=== PATIENT | female | born 1945 | race Caucasian/White ===

== ENCOUNTER 2017-01-15 11:55 | Outpatient (CLI) ==
[2017-01-15 12:45] LABS: BASOPHILS # (AUTO) 0.1 K/uL (0-0.2); BASOPHILS % (AUTO) 0.7 % (0.0-3.0); EOSINOPHILS # (AUTO) 0.2 K/ul (0.0-0.7); EOSINOPHILS % (AUTO) 1.8 % (0.0-7.0); HEMATOCRIT 32.2 % (37.0-47.0); HEMOGLOBIN 10.2 g/dl (12.0-16.0); IMMATURE GRANULOCYTE % (AUTO) 4.7 % (0.0-5.0); LYMPHOCYTES # (AUTO) 2.6 K/uL (0.60-3.4); LYMPHOCYTES % (AUTO) 31.4 (10.0-50.0); MEAN CORPUSCULAR HEMOGLOBIN 27.5 pg (27.0-31.0); MEAN CORPUSCULAR HGB CONC 31.7 (31.8-35.4); MEAN CORPUSCULAR VOLUME 86.8 fl (81.0-99.0); MONOCYTES # (AUTO) 0.6 K/uL (0.4-2.0); MONOCYTES % (AUTO) 7.4 (0-10); NEUTROPHILS # (AUTO) 4.4 K/ul (2.0-6.9); PLATELET COUNT 310 10^3/uL (140-440); RED BLOOD COUNT 3.71 10^6/ul (4.20-5.40); WHITE BLOOD COUNT 8.11 K/ul (4.6-10.2)
[2017-01-15 13:21] LABS: ALBUMIN/GLOBULIN RATIO 0.83; ANION GAP 12.3; BILIRUBIN,TOTAL 0.34 mg/dL (0.00-1.20); BUN/CREATININE RATIO 19.17; CALCIUM 9.6 mg/dL (8.2-10.2); CHOL/HDL RATIO 4.1 (4.5-5.5); CREATININE 0.73 mg/dL (0.60-1.30); POTASSIUM 4.3 mmol/L (3.5-5.10); TOTAL PROTEIN 6.6 g/dL (5.8-8.1)
== END 2017-01-15 11:56 | disposition home or self-care (01) ==
LOC: LAB 11:55
PROVIDERS: ATTEND Emergency Medicine
DX: E11.9 Type 2 diabetes mellitus without complications (principal); I10 Essential (primary) hypertension
CPT/HCPCS: 36415; 80053; 80061; 83036; 84443; 85025

== ENCOUNTER 2017-01-16 11:59 | Outpatient (CLI) ==
--- NOTE | 2017-01-16 15:42 | MRI ---
EXAM: MRI brain without and with IV contrast. DATE: 01/16/2017. HISTORY: Malignant neoplasm of the brain, unspecified. TECHNIQUE: Sagittal T1W pre and postcontrast, axial T2W, axial FLAIR, axial T1W pre and postcontras t, axial DWI, coronal T1W postcontrast, and coronal T2W GRE sequences of the brain were obtained usi ng 1.2 the Alise magnet. Many sequences were repeated due to patient motion artifacts. CONTRAST: Omniscan - 17 ml IV. COMPARISON: Study is compared to a CT head report from [facility] dated 2016. FINDINGS: A broad area of T2W/FLAIR hyperintensity involving the anterior half of the left tempora l lobe, left amygdala, left hippocampus, left gyrus rectus, left medial orbital gyrus (centrally), i nferior aspect of the left frontal lobe and left basal ganglia reduction and sulcal size throughout these regions. A contrast enhancing 10.3 x 10.8 x 8.2 mm lesion is detected in the posterior aspect of the left hippocampal tail. A left hippocampal body 5.2 x 3 mm enhancing focus is noted just ant erior to the hippocampal tail lesion. A 8.5 mm circular rim of enhancement is apparent in the far a nterior aspect the left temporal lobe. No other enhancing lesions are identified in the brain. Lateral ventricles and many frontal / parietal lobe sulci are slightly prominent due to involutiona l change. No midline shift, herniation or abnormal extra-axial fluid collection is apparent. No ac kayla infarct or hemorrhage is identified. No abnormal contrast enhancement is identified in the meni nges or dura. Small/moderate confluent rim of T2W/FLAIR hyperintensity without abnormal enhancement is demonstrated in the periventricular white matter abutting each lateral ventricle. Small number of subcentimeter T2W/FLAIR bright, non-enhancing foci are scattered in the schultz radiata and subcor tical white matter bilaterally. Several small areas of T2W/FLAIR hyperintensity are noted in the emery s. The griffin - white matter differentiation is normal. No migration or diverticulation abnormality is identified. No mesial temporal sclerosis is detected. The 7th/8th cranial nerve complexes, cere bellopontine angles, and visible cervical spinal cord are normal. There is no cerebellar tonsillar ectopia. The pituitary gland is small in size, with CSF filling much of the pituitary fossa Corpus callosum is normal in size and configuration. Flow voids are present in the major intracranial art eries and in the dural venous sinuses. No aneurysm, AVM or dural venous sinus thrombosis is apparen t. There is borderline orbital proptosis bilaterally. No other orbit abnormality is identified. T he mastoid air cells are unremarkable. There is no acute sinusitis. No neck mass or lymphadenopath y is detected. No calvarial neoplasm or acute fracture is evident. IMPRESSIONS: 1. Enhancing lesions in the left temporal lobe anteriorly, left hippocampal body and hippocampal ta il. T2W/IR hyperintensity and reduced size of sulci involving much of the left temporal lobe and hi ppocampus - - DDX: Non-enhancing tumor, edema, post XRT changes. These findings are suspicious for multifocal glioblastoma or metastatic disease. Lymphoma, active infection, sequela of infection, de myelinating disease, or vasculitis might look similar; however, patient has a reported history of ma lignant neoplasm. 2. Moderate cerebral / brainstem small vessel disease. 3. No acute infarct, hemorrhage, or hydrocephalus. 4. Mild cerebral atrophy (primarily frontoparietal). 5. Borderline orbital proptosis. Correlate with PE.
== END 2017-01-16 12:00 | disposition home or self-care (01) ==
LOC: RAD 11:59
PROVIDERS: ATTEND Emergency Medicine
DX: C71.9 Malignant neoplasm of brain, unspecified (principal)

== ENCOUNTER 2017-04-12 13:54 | Inpatient (IN) ==
[2017-04-12] MEDS ORDERED: SODIUM CHLORIDE 500 ML IV STA (14:06)
[2017-04-12 14:10] VITALS: BMI 28.5
[2017-04-12 14:16] LABS: BASOPHILS % (AUTO) 0.9 % (0.0-3.0); EOSINOPHILS # (AUTO) 0.2 K/ul (0.0-0.7); EOSINOPHILS % (AUTO) 4.4 % (0.0-7.0); HEMATOCRIT 37.8 % (37.0-47.0); HEMOGLOBIN 12.5 g/dl (12.0-16.0); IMMATURE GRANULOCYTE % (AUTO) 1.7 % (0.0-5.0); LYMPHOCYTES # (AUTO) 1.4 K/uL (0.60-3.4); LYMPHOCYTES % (AUTO) 41.7 (10.0-50.0); MEAN CORPUSCULAR HGB CONC 33.1 (31.8-35.4); MEAN CORPUSCULAR VOLUME 93.8 fl (81.0-99.0); MONOCYTES # (AUTO) 0.5 K/uL (0.4-2.0); NEUTROPHILS # (AUTO) 1.3 K/ul (2.0-6.9); NEUTROPHILS % (AUTO) 37.3; PLATELET COUNT 116 10^3/uL (140-440); RED BLOOD COUNT 4.03 10^6/ul (4.20-5.40); WHITE BLOOD COUNT 3.43 K/ul (4.6-10.2)
[2017-04-12 14:42] LABS: ALBUMIN 3.1 g/dL (3.4-5.0); ALBUMIN/GLOBULIN RATIO 1.07; ANION GAP 18.1; BILIRUBIN,TOTAL 0.66 mg/dL (0.00-1.20); BUN/CREATININE RATIO 13.63; CALCIUM 9.5 mg/dL (8.2-10.2); CREATININE 0.66 mg/dL (0.60-1.30); POTASSIUM 4.1 mmol/L (3.5-5.10)
[2017-04-12 14:48] LABS: ABG PH 7.42 (7.35-7.45)
[2017-04-12 14:49] LABS: ABG BASE EXCESS 3 (-2.0-2.0); ABG HCO3 28 (22.0-26.0); ABG TCO2 29 (22.0-28.0)
--- NOTE | 2017-04-12 15:52 | US ---
EXAM: Bilateral lower extremity venous Doppler History: Bilateral lower extremity pain. Technique: Multiple sonographic images through the bilateral lower extremities were obtained. [place] r duplex Doppler was used to interrogate vascular flow. Findings: The bilateral common femoral, greater saphenous, profunda, superficial femoral, popliteal , peroneal, posterior tibial and anterior tibial veins demonstrate spontaneous flow with normal comp ression and normal augmentation. Impression: No sonographic evidence for deep venous thrombosis.
--- NOTE | 2017-04-12 16:05 | ED.PDOC ---
General ED Provider: Dr. SARANYA MENDOZA Chief Complaint: Weakness Stated Complaint: weakness , cough Time Seen by Physician: 14:14 Mode of Arrival: Wheelchair Information Source: Patient Exam Limitations: No limitations [facility] and Triage Documentation Reviewed and Agree: Yes Miscellaneous Complaint Exam - Complex/Multi-System Complaint/Exam Onset/Duration: brain cancer history has generalized weakness Symptoms Are: Still present Episodes Lasting: Weeks Initial Severity: Mild Current Severity: None Associated Signs and Symptoms: Reports: Cough. Denies: Decreased responsiveness , Confusion, Agitation, Dizziness, Weakness, Syncope, Headache, Short of air, Wheezing, Hemoptysis, Chest pain, Palpitations, Edema, Nausea, Vomiting, Diarrhea, Abdominal pain, Back pain, Dysuria, Hematemesis, Melena, Decreased oral intake, Fever, Diaphoresis, Immunocompromised, Anticoagulation Therapy, Recent medication changes, Indwelling medical receptionist assistant, Prior MRSA, Prior VRE, Recent trauma, Remote trauma Recent Echo/LV Function: No Respiratory Distress: None JVD Present: No Tachypnea Present: No Stridor Present: No Abdominal Findings: Present: Normal findings Glascow Coma Scale (see protocol): 15 Meningeal Signs Positive: No Focal Weakness: Present: None Focal Sensory Loss: Present: None Babinski Sign: Negative Right, Negative Left Skin Findings: Present: Normal findings Review of Systems - Review Of Systems Constitutional: Reports: Malaise, Weakness Eyes: Reports: No symptoms Ears, Nose, Mouth, Throat: Reports: No symptoms Respiratory: Reports: Cough Cardiac: Reports: No symptoms GI: Reports: No symptoms : Reports: No symptoms Musculoskeletal: Reports: No symptoms Skin: Reports: No symptoms Neurological: Reports: No symptoms Endocrine: Reports: No symptoms Hematologic/Lymphatic: Reports: No symptoms All Other Systems: Reviewed and Negative Past Medical History - Past Medical History Previously Healthy: Yes Endocrine: Reports: DM 2, Dyslipidemia Cardiovascular: Reports: None Respiratory: Reports: COPD Hematological: Reports: None Gastrointestinal: Reports: None Genitourinary: Reports: None Neuro/Psych: Reports: None Musculoskeletal: Reports: None Cancer: Reports: None, Other (brain) Last Menstrual Period: na - Surgical History General Surgical History: Reports: None - Family History Family History: Reports: None - Social History Smoking Status: Current some day smoker Hx Substance Use: No Alcohol Screening: None - Immunizations Tetanus Shot up to Date: Yes Physical Exam - Physical Exam Appearance: Ill-appearing Ill-appearing: Moderate Pain Distress: Mild Eyes: MARITZA, EOMI, Conjunctiva clear ENT: Dry mucosa Respiratory: Rhonchi Cardiovascular: RRR, Pulses normal, No rub, No murmur GI/: Soft, Nontender, No masses, Bowel sounds normal, No Organomegaly Musculoskeletal: Normal strength, ROM intact, No edema, No calf tenderness Skin: Warm, Dry, Normal color Neurological: Sensation intact, Motor intact, Reflexes intact, Cranial nerves intact, Alert, Oriented Psychiatric: Affect appropriate, Mood appropriate Interpretation - Radiology Interpretation Radiology Interpretation By: Radiologist Physician Notification - Case Discussed Physician Notified: pmd Time of Notification: 16:05 Admit To: Inpatient Critical Care Note - Critical Care Note Total Time (mins): 0 Course - Course Hematology/Chemistry: 04/12/17 14:14 04/12/17 14:14 Orders, Labs, Meds: Lab Review 04/12/17 04/12/17 14:10 14:14 WBC 3.43 L RBC 4.03 L Hgb 12.5 Hct 37.8 MCV 93.8 MCH 31.0 MCHC 33.1 RDW Coeff of Amanda 15.0 H Plt Count 116 L Immature Gran % (Auto) 1.7 Neut % (Auto) 37.3 Lymph % (Auto) 41.7 [place] % (Auto) 14.0 H Eos % (Auto) 4.4 Baso % (Auto) 0.9 Immature Gran # (Auto) 0.1 Neut # 1.3 L Lymph # 1.4 [place] # 0.5 Eos # 0.2 Baso # 0.0 Puncture Site R rad O2 Saturation 89.0 L ABG pH 7.42 ABG pCO2 43.0 ABG pO2 56.0 L* ABG HCO3 28 H ABG Total CO2 29 H ABG Base Excess 3 H Param Test + FiO2 % 21.0 Sodium 141 Potassium 4.1 Chloride 102 Carbon Dioxide 25 Anion Gap 18.1 BUN 9 Creatinine 0.66 Estimated GFR (MDRD) 89.00 BUN/Creatinine Ratio 13.63 Glucose 85 Calcium 9.5 Total Bilirubin 0.66 AST 15 ALT 9 L Alkaline Phosphatase 77 Total Protein 6.0 Albumin 3.1 L Globulin 2.9 Albumin/Globulin Ratio 1.07 Orders Category Date Time Status ABG DRAW REQUEST Stat CARDIO 04/12/17 14:10 Completed EKG-(ED ONLY) Stat CARDIO 04/12/17 14:04 Completed ED IV/MEDIPORT/POWERPORT .ONCE EMERGENCY 04/12/17 14:04 Active ABG Stat LAB 04/12/17 14:10 Completed CBC W/ AUTO DIFF Stat LAB 04/12/17 14:14 Completed COMPREHENSIVE METABOLIC PANEL Stat LAB 04/12/17 14:14 Completed URINALYSIS C & S IF INDICATED Stat LAB 04/12/17 14:03 Uncollected 0.9 % Sodium Chloride [Saline Flush] MEDS 04/12/17 14:04 Active 1 syr IVF PRN PRN Sodium Chloride 0.9% [Sodium Chloride] 500 ml MEDS 04/12/17 14:[address] CHEST W/O CONTRAST Stat RADS 04/12/17 14:[address] HEAD W/O CONTRAST Stat RADS 04/12/17 14:04 Ordered U/S VENOUS SCAN KENYETTA LEGS Stat RADS 04/12/17 14:06 Completed Medications Generic Name Dose Route Start Last Admin Trade Name Freq PRN Reason Stop Dose Admin Sodium Chloride 1 syr 04/12/17 14:04 Saline Flush IVF PRN PRN To flush IV Discontinued Medications Generic Name Dose Route Start Last Admin Trade Name Freq PRN Reason Stop Dose Admin Sodium Chloride 500 mls @ 500 mls/hr 04/12/17 14:06 04/12/17 14:34 Sodium Chloride IV 04/12/17 15:05 500 mls/hr BOLUS STA Administration Vital Signs: Temp Pulse Resp BP Pulse Ox 04/12/17 14:04 95.6 F L 85 16 122/71 88 L Departure - Departure Time of Disposition: 16:05 (admitt) Disposition: ADMITTED INPATIENT Discharge Problem: Chronic obstructive pulmonary disease Instructions: COPD (Chronic Obstructive Pulmonary Disease) (ED) Condition: Good Pt referred to PMD for follow-up: Yes Additional Instructions: Please call your Family Physician as soon as possible to schedule a follow-up appointment. Allergies/Adverse Reactions: Allergies No Known Allergies Allergy (Verified 04/12/17 14:17) Home Medications: Ambulatory Orders Famotidine 20 mg PO BID 01/15/17 Ondansetron [Zofran Odt] 8 mg PO TID 01/15/17 Pramipexole Di-HCl [Pramipexole Er] 0.25 mg PO BEDTIME 01/15/17 Levothyroxine Sodium [Synthroid] 225 mcg PO DAILY 04/12/17 Disposition Discussed With: Patient
--- NOTE | 2017-04-12 16:26 | CT ---
EXAM: CT of the head without contrast History: Altered mental status, cough, history of brain tumor. Comparison: Brain MRI 01/16/2017 Technique: Multiplanar CT images through the head were obtained without the administration of IV co ntrast Findings: The visualized paranasal sinuses and mastoid air cells are clear in general. Postsurgical changes of the left calvarium. Intracranially the ventricular and cisternal spaces are normal in size, shape and configuration for a patient of this age. No midline shift and no hydrocephalus. No acute intracranial hemorrhage or abnormal extraaxial fluid collections. Periventricular and subcortical white matter hypodensities. No obvious dominant mass identified. Impression: No acute intracranial process. Chronic small vessel ischemic disease.
[2017-04-12] MEDS ORDERED: SODIUM CHLORIDE 1,000 ML IV SCH (16:30)
--- NOTE | 2017-04-12 16:30 | CT ---
Exam: CT of the chest without intravenous contrast. Comparison: None available. Reason for exam: Cough. FINDINGS: Pleural-based nodule in the left upper lobe is seen on axial image number 32 measuring 4. 6 mm. 6 mm x 3 mm nodule in the right middle lobe on axial image number 32. There is a small right-sided pleural effusion and overlying atelectasis or pneumonia. Anterior consolidations are seen in both lung bases. No pneumothorax. The heart is not enlarged. There is atherosclerotic disease of the aorta and distal arterial vasculature including the coronary vessels. The mediastinal lymph nodes are incompletely evaluated without intravenous contrast administration. No suspicious appearing osteoblastic or osteolytic lesions. Degenerative disease is seen within the thoracic spine. The gallbladder has been removed. Impression: 1. Sub centimeter nodules in the left upper and right middle lobes with a small right-sided pleural effusion and overlying atelectasis or pneumonia. Recommend follow up imaging and 3 months to docum ent resolution. 2. Small anterior consolidations in both lung bases. Imaging findings are consistent with atelecta sis or pneumonia. Recommend follow up imaging to document resolution.
[2017-04-12] MEDS: DUONEB NEB SCH ×2 (17:04→23:22)
[2017-04-12] MEDS ORDERED: ROCEPHIN 1 GM in SODIUM CHLORIDE 50 ML IV SCH (19:00)
[2017-04-12] MEDS ORDERED: NON-FORMULARY MEDICATION (Duloxetine Hcl [Duloxetine Hcl] 60 MG) PO SCH (19:00)
[2017-04-12] MEDS: COREG PO SCH (19:15)
[2017-04-12] MEDS ORDERED: ROCEPHIN ONE (19:59)
[2017-04-12] MEDS ORDERED: TEMOZOLOMIDE PO SCH (20:00)
[2017-04-12] MEDS ORDERED: SULFAMETHOXAZOLE PO SCH ×2 (20:00)
[2017-04-12] MEDS ORDERED: TEMOZOLOMIDE 5 MG PO SCH (20:00)
[2017-04-12] MEDS ORDERED: TRIMETHOPRIM PO SCH ×2 (20:00)
[2017-04-12 20:07] LABS: ADD URINE MICROSCOPIC YES; BILIRUBIN,URINE Negative (NEGATIVE); KETONES,URINE Trace (NEGATIVE); LEUKOCYTE ESTERASE ,URINE Negative (NEGATIVE); NITRITE,URINE Positive (NEGATIVE); PH,URINE 5.5 (5-9); PROTEIN,URINE Negative (NEGATIVE); URINE, BLOOD 1+ (NEGATIVE)
[2017-04-12 20:16] LABS: BACTERIA,URINE 4+ (NOT PRESENT)
[2017-04-12] MEDS ORDERED: GLUCOPHAGE PO SCH (21:00)
[2017-04-12] MEDS ORDERED: NON-FORMULARY MEDICATION (Lisinopril [Lisinopril] 20 MG) PO SCH ×22 (21:00)
[2017-04-12] MEDS ORDERED: SOLU-MEDROL 125 MG IVP SCH (21:00)
[2017-04-12] MEDS ORDERED: PRAMIPEXOLE DI HCL 0.25 MG PO SCH (21:00)
[2017-04-12] MEDS ORDERED: OXYCONTIN PO SCH (21:00)
[2017-04-12] MEDS ORDERED: PEPCID PO SCH (21:00)
[2017-04-12] MEDS ORDERED: KEPPRA 500 MG PO SCH (21:00)
[2017-04-12] MEDS ORDERED: BACTRIM DS 800/160 MG ONE (21:09)
[2017-04-12] MEDS ORDERED: GLUCOPHAGE ONE (21:09)
[2017-04-12] MEDS ORDERED: PEPCID ONE (21:09)
[2017-04-12] MEDS: KEPPRA PO SCH (21:36)
[2017-04-12] MEDS: ZESTRIL PO SCH (21:37)
[2017-04-12] MEDS: RISPERDAL PO SCH (21:37)
[2017-04-12] MEDS: OXYCONTIN PO SCH (21:37)
[2017-04-12] MEDS: DRONABINOL 5 MG PO SCH (21:40)
[2017-04-13] MEDS: DUONEB NEB SCH ×4 (04:57→23:17)
[2017-04-13 05:31] LABS: BASOPHILS % (AUTO) 0.9 % (0.0-3.0); EOSINOPHILS % (AUTO) 0.4 % (0.0-7.0); HEMATOCRIT 34.5 % (37.0-47.0); HEMOGLOBIN 11.5 g/dl (12.0-16.0); IMMATURE GRANULOCYTE % (AUTO) 2.7 % (0.0-5.0); LYMPHOCYTES # (AUTO) 0.7 K/uL (0.60-3.4); LYMPHOCYTES % (AUTO) 31.8 (10.0-50.0); MEAN CORPUSCULAR HEMOGLOBIN 30.7 pg (27.0-31.0); MEAN CORPUSCULAR HGB CONC 33.3 (31.8-35.4); MEAN CORPUSCULAR VOLUME 92.2 fl (81.0-99.0); MONOCYTES # (AUTO) 0.1 K/uL (0.4-2.0); MONOCYTES % (AUTO) 3.1 (0-10); NEUTROPHILS # (AUTO) 1.4 K/ul (2.0-6.9); NEUTROPHILS % (AUTO) 61.1; PLATELET COUNT 115 10^3/uL (140-440); RED BLOOD COUNT 3.74 10^6/ul (4.20-5.40); WHITE BLOOD COUNT 2.23 K/ul (4.6-10.2)
[2017-04-13 05:53] LABS: ALBUMIN 2.7 g/dL (3.4-5.0); ALBUMIN/GLOBULIN RATIO 1.08; ANION GAP 19.5; BILIRUBIN,TOTAL 0.39 mg/dL (0.00-1.20); BUN/CREATININE RATIO 17.77; CALCIUM 8.9 mg/dL (8.2-10.2); CREATININE 0.45 mg/dL (0.60-1.30); POTASSIUM 4.5 mmol/L (3.5-5.10); TOTAL PROTEIN 5.2 g/dL (5.8-8.1)
[2017-04-13] MEDS: SYNTHROID PO SCH ×2 (06:10)
[2017-04-13] MEDS: HUMULIN R SUBCUT PRN ×4 (06:11→20:06)
[2017-04-13] MEDS ORDERED: LEVOTHYROXINE SODIUM 225 MCG PO SCH (09:00)
[2017-04-13] MEDS ORDERED: NON-FORMULARY MEDICATION (Atorvastatin Calcium [Atorvastatin Calcium] 40 MG) PO SCH ×22 (09:00)
[2017-04-13] MEDS: SOLU-MEDROL 40 MG IVP SCH ×2 (09:06→20:04)
[2017-04-13] MEDS: ZESTRIL PO SCH ×2 (09:07→20:05)
[2017-04-13] MEDS: DRONABINOL 5 MG PO SCH ×2 (09:07→20:04)
[2017-04-13] MEDS: GLUCOPHAGE PO SCH ×2 (09:08→16:39)
[2017-04-13] MEDS: KEPPRA PO SCH ×2 (09:08→20:05)
[2017-04-13] MEDS: LIPITOR PO SCH (09:08)
[2017-04-13] MEDS: PEPCID PO SCH ×2 (09:09→16:40)
[2017-04-13] MEDS: COREG PO SCH ×2 (09:09→16:40)
[2017-04-13] MEDS: OXYCONTIN PO SCH ×2 (09:09→20:05)
[2017-04-13] MEDS: AMARYL PO SCH (09:09)
[2017-04-13] MEDS: RISPERDAL PO SCH ×2 (09:10→20:05)
[2017-04-13] MEDS: SODIUM CHLORIDE 1,000 ML IV SCH ×2 (20:04→20:17)
[2017-04-13] MEDS: ROCEPHIN 1 GM in SODIUM CHLORIDE 50 ML IV SCH (20:04)
[2017-04-13] MEDS: MIRAPEX PO SCH (20:05)
[2017-04-13] MEDS: CYMBALTA PO SCH (20:05)
[2017-04-14 04:44] LABS: BASOPHILS % (AUTO) 0.5 % (0.0-3.0); HEMOGLOBIN 10.8 g/dl (12.0-16.0); LYMPHOCYTES # (AUTO) 0.6 K/uL (0.60-3.4); LYMPHOCYTES % (AUTO) 14.1 (10.0-50.0); MEAN CORPUSCULAR HEMOGLOBIN 30.9 pg (27.0-31.0); MEAN CORPUSCULAR HGB CONC 33.8 (31.8-35.4); MEAN CORPUSCULAR VOLUME 91.4 fl (81.0-99.0); MONOCYTES # (AUTO) 0.3 K/uL (0.4-2.0); MONOCYTES % (AUTO) 6.4 (0-10); NEUTROPHILS # (AUTO) 3.1 K/ul (2.0-6.9); PLATELET COUNT 133 10^3/uL (140-440); WHITE BLOOD COUNT 3.91 K/ul (4.6-10.2)
[2017-04-14] MEDS: DUONEB NEB SCH ×4 (05:05→23:00)
[2017-04-14 05:09] LABS: ALBUMIN 2.6 g/dL (3.4-5.0); ALBUMIN/GLOBULIN RATIO 1.04; ANION GAP 13.3; BILIRUBIN,TOTAL 0.25 mg/dL (0.00-1.20); BUN/CREATININE RATIO 14.54; CALCIUM 8.8 mg/dL (8.2-10.2); CREATININE 0.55 mg/dL (0.60-1.30); POTASSIUM 4.3 mmol/L (3.5-5.10); TOTAL PROTEIN 5.1 g/dL (5.8-8.1)
[2017-04-14] MEDS: PEPCID PO SCH ×2 (05:42→17:04)
[2017-04-14] MEDS: SYNTHROID PO SCH ×2 (05:42→05:43)
[2017-04-14] MEDS: HUMULIN R SUBCUT PRN ×4 (05:43→20:10)
[2017-04-14] MEDS: ZESTRIL PO SCH ×3 (05:55→20:10)
[2017-04-14] MEDS: DRONABINOL 5 MG PO SCH ×2 (08:12→20:11)
[2017-04-14] MEDS: KEPPRA PO SCH ×2 (08:13→20:10)
[2017-04-14] MEDS: OXYCONTIN PO SCH ×2 (08:13→20:10)
[2017-04-14] MEDS: GLUCOPHAGE PO SCH ×2 (08:14→17:04)
[2017-04-14] MEDS: COREG PO SCH ×2 (08:14→17:04)
[2017-04-14] MEDS: LIPITOR PO SCH (08:15)
[2017-04-14] MEDS: RISPERDAL PO SCH ×2 (08:16→20:10)
[2017-04-14] MEDS: AMARYL PO SCH (08:16)
[2017-04-14] MEDS: SOLU-MEDROL 40 MG IVP SCH ×2 (08:16→20:11)
[2017-04-14] MEDS: SODIUM CHLORIDE 1,000 ML IV SCH ×2 (19:29→21:05)
[2017-04-14] MEDS: ROCEPHIN 1 GM in SODIUM CHLORIDE 50 ML IV SCH (20:09)
[2017-04-14] MEDS: CYMBALTA PO SCH (20:10)
[2017-04-14] MEDS: MIRAPEX PO SCH (20:10)
[2017-04-15] MEDS: DUONEB NEB SCH ×4 (04:51→23:25)
[2017-04-15 04:55] LABS: BASOPHILS % (AUTO) 0.6 % (0.0-3.0); HEMATOCRIT 32.9 % (37.0-47.0); HEMOGLOBIN 11.1 g/dl (12.0-16.0); IMMATURE GRANULOCYTE % (AUTO) 2.6 % (0.0-5.0); LYMPHOCYTES # (AUTO) 0.5 K/uL (0.60-3.4); LYMPHOCYTES % (AUTO) 15.6 (10.0-50.0); MEAN CORPUSCULAR HEMOGLOBIN 30.7 pg (27.0-31.0); MEAN CORPUSCULAR HGB CONC 33.7 (31.8-35.4); MEAN CORPUSCULAR VOLUME 91.1 fl (81.0-99.0); MONOCYTES # (AUTO) 0.3 K/uL (0.4-2.0); MONOCYTES % (AUTO) 7.6 (0-10); NEUTROPHILS # (AUTO) 2.5 K/ul (2.0-6.9); NEUTROPHILS % (AUTO) 73.6; PLATELET COUNT 145 10^3/uL (140-440); RED BLOOD COUNT 3.61 10^6/ul (4.20-5.40)
[2017-04-15 05:23] LABS: ALBUMIN 2.9 g/dL (3.4-5.0); ALBUMIN/GLOBULIN RATIO 1.26; ANION GAP 12.3; BILIRUBIN,TOTAL 0.31 mg/dL (0.00-1.20); BUN/CREATININE RATIO 15.68; CALCIUM 9.3 mg/dL (8.2-10.2); CREATININE 0.51 mg/dL (0.60-1.30); POTASSIUM 4.3 mmol/L (3.5-5.10); TOTAL PROTEIN 5.2 g/dL (5.8-8.1)
[2017-04-15] MEDS: PEPCID PO SCH ×2 (05:41→16:31)
[2017-04-15] MEDS: HUMULIN R SUBCUT PRN ×4 (05:41→21:12)
[2017-04-15] MEDS: SYNTHROID PO SCH ×2 (05:41)
[2017-04-15] MEDS: OXYCONTIN PO SCH ×2 (09:19→21:13)
[2017-04-15] MEDS: DRONABINOL 5 MG PO SCH ×2 (09:19→21:14)
[2017-04-15] MEDS: KEPPRA PO SCH ×2 (09:20→21:14)
[2017-04-15] MEDS: GLUCOPHAGE PO SCH ×2 (09:20→16:31)
[2017-04-15] MEDS: LIPITOR PO SCH (09:20)
[2017-04-15] MEDS: RISPERDAL PO SCH ×2 (09:20→21:13)
[2017-04-15] MEDS: COREG PO SCH ×2 (09:20→16:31)
[2017-04-15] MEDS: AMARYL PO SCH (09:20)
[2017-04-15] MEDS: ZESTRIL PO SCH ×2 (09:20→21:13)
[2017-04-15] MEDS: SOLU-MEDROL 40 MG IVP SCH ×2 (09:21→21:12)
[2017-04-15] MEDS: ROCEPHIN 1 GM in SODIUM CHLORIDE 50 ML IV SCH (21:11)
[2017-04-15] MEDS: MIRAPEX PO SCH (21:13)
[2017-04-15] MEDS: CYMBALTA PO SCH (21:14)
[2017-04-16 05:11] LABS: BASOPHILS % (AUTO) 0.6 % (0.0-3.0); HEMATOCRIT 31.8 % (37.0-47.0); HEMOGLOBIN 10.9 g/dl (12.0-16.0); IMMATURE GRANULOCYTE % (AUTO) 4.1 % (0.0-5.0); LYMPHOCYTES # (AUTO) 0.4 K/uL (0.60-3.4); LYMPHOCYTES % (AUTO) 11.4 (10.0-50.0); MEAN CORPUSCULAR HGB CONC 34.3 (31.8-35.4); MEAN CORPUSCULAR VOLUME 90.3 fl (81.0-99.0); MONOCYTES # (AUTO) 0.2 K/uL (0.4-2.0); MONOCYTES % (AUTO) 7.6 (0-10); NEUTROPHILS # (AUTO) 2.4 K/ul (2.0-6.9); NEUTROPHILS % (AUTO) 76.3; PLATELET COUNT 152 10^3/uL (140-440); RED BLOOD COUNT 3.52 10^6/ul (4.20-5.40); WHITE BLOOD COUNT 3.17 K/ul (4.6-10.2)
[2017-04-16] MEDS: DUONEB NEB SCH ×4 (05:12→23:25)
[2017-04-16 05:35] LABS: ALBUMIN 2.7 g/dL (3.4-5.0); ALBUMIN/GLOBULIN RATIO 1.29; BILIRUBIN,TOTAL 0.3 mg/dL (0.00-1.20); BUN/CREATININE RATIO 16.98; CALCIUM 8.9 mg/dL (8.2-10.2); CREATININE 0.53 mg/dL (0.60-1.30); TOTAL PROTEIN 4.8 g/dL (5.8-8.1)
[2017-04-16] MEDS: HUMULIN R SUBCUT PRN ×4 (05:57→20:53)
[2017-04-16] MEDS: SODIUM CHLORIDE 1,000 ML IV SCH (05:57)
[2017-04-16] MEDS: SYNTHROID PO SCH ×2 (05:58)
[2017-04-16] MEDS: PEPCID PO SCH ×2 (05:58→17:32)
[2017-04-16] MEDS: SOLU-MEDROL 40 MG IVP SCH ×2 (09:14→20:52)
[2017-04-16] MEDS: RISPERDAL PO SCH ×2 (09:40→20:54)
[2017-04-16] MEDS: LIPITOR PO SCH (09:40)
[2017-04-16] MEDS: COREG PO SCH ×2 (09:40→17:32)
[2017-04-16] MEDS: ZESTRIL PO SCH ×2 (09:40→20:53)
[2017-04-16] MEDS: OXYCONTIN PO SCH ×2 (09:40→20:52)
[2017-04-16] MEDS: DRONABINOL 5 MG PO SCH ×2 (09:41→20:54)
[2017-04-16] MEDS: KEPPRA PO SCH ×2 (09:41→20:54)
[2017-04-16] MEDS: GLUCOPHAGE PO SCH ×2 (09:42→17:33)
[2017-04-16] MEDS: AMARYL PO SCH (09:42)
--- NOTE | 2017-04-16 10:47 | HP ---
DATE OF SERVICE: 04/12/17 CHIEF COMPLAINT: Shortness of breath, coughing, weakness and tiredness. HISTORY OF PRESENT ILLNESS: This is a 71-year-old female who recently came to my practice. She has been diagnosed with brain cancer and has recurrence of brain cancer and is presently on chemotherapy and radiation in [place] with oncologist. The patient has been weak, tired, cough and congestion. The patient's daughter brought the patient to the emergency room for the evaluation. The patient was hypoxic with pH 7.42, pc02 43.0, p02 56. BUN and creatinine were normal. UA was positive for nitrites and leukocyte esterase negative. CT of the chest was done which showed COPD. CT head showed brain mass which was consistent with brain cancer. At that time, in view of respiratory failure, urinary tract infection, bronchitis, the patient is admitted to the hospital for IV fluids and treatment. REVIEW OF SYSTEMS: CONSTITUTIONAL: Weakness, tiredness. No fever, no chills. HEENT: Normal. ENDOCRINE: No weight gain; no weight loss. CVS: No chest pain. No PND, no orthopnea. Shortness of breath. No PND, no orthopnea. RESPIRATORY: Shortness of breath, cough and congestion. No hemoptysis. GI: No nausea, no vomiting. No abdominal pain. No melena. : No hematuria. No polyuria. MUSCULOSKELETAL: No joint swelling. PSYCHIATRIC: Not anxious. No depression. No suicidal thoughts. No homicidal thoughts. SKIN: Intact, no open lesions. PAST MEDICAL HISTORY: 1. CAD 2. Dyslipidemia 3. Hypertension 4. Seizure disorder on precautionary medication 5. COPD, oxygen dependent 6. Osteoarthritis 7. DJD spine, multiple pain medications 8. Hypothyroidism 9. Depression/anxiety 10. Nicotine use PAST SURGICAL HISTORY: 1. Cholecystectomy 2. Craniotomy for brain tumor PERSONAL HISTORY: Lives at home, , lives with daughter, still smoking. FAMILY HISTORY: Significant for diabetes. MEDICATIONS: 1. Famotidine 2. Zofran 3. Pramipexole 4. Glimepiride 5. Lisinopril 6. Metformin 7. Risperidone 8. Atorvastatin 9. Coreg 10. Duloxetine 11. Keppra 12. Dronabinol 13. Oxycodone 14. Levothyroxine 15. Temozolomide 16. Bactrim ALLERGIES: NKDA PHYSICAL EXAMINATION: V/S: BP 122/71, temperature 97.5, respiratory rate 16, heart rate 85, saturation 88 on 2L GENERAL APPEARANCE: Sick-looking lady lying in bed. HEENT: Atraumatic, normocephalic. No scleral icterus. Pallor positive. Mucosa dry. NECK: Supple. No JVD, no bruit. No lymphadenopathy. No thyromegaly. HEART: S1, S2 normal. No murmur. No cyanosis or clubbing. No ascites. LUNGS: Decreased with basilar crackles bilaterally. No rales or rhonchi. ABDOMEN: Soft, nontender. Bowel sounds are active. No CVA tenderness. No rigidity or guarding. EXTREMITIES: 1+ edema. No cyanosis or clubbing. MUSCULOSKELETAL: Normal joints, no swelling. SKIN: Intact and dry. LYMPHATIC: No lymph nodes palpable. LABS: White count 3.43, hemoglobin 12.5, hematocrit 37.8, platelet count 116. ABG pH 7.42, pc02 43, p02 56, sodium 141, potassium 4.1, chloride 102, bicarb 25, BUN 9 , creatinine 0.66. ASSESSMENT: 1. COPD EXACERBATION SECONDARY TO BRONCHITIS. 2. BRAIN TUMOR 3. FAILURE TO THRIVE 4. RECURRENCE OF BRAIN TUMOR ON CHEMOTHERAPY 5. HYPOXEMIA 6. UTI 7. CAD 8. HYPERTENSION 9. DYSLIPIDEMIA 10. CHRONIC PAIN SYNDROME PLAN: 1. Admit the patient to regular floor 2. CBC, CMP today and daily 3. Cardiac enzymes and troponin 4. Continue home medications 5. IV fluids at 40 mL/hr 6. Solu-Medrol 40 mg q.12hr 7. Accu-Cheks with coverage 8. Duonebs 9. Rocephin 1 gm daily 10. Daily I & O's TIME SPENT: MORE THAN 70 minutes MTDD
--- NOTE | 2017-04-16 11:11 | PN ---
DATE OF SERVICE: 04/13/17 SUBJECTIVE: The patient is admitted with COPD exacerbation, UTI, still feeling weak and tired with some coughing. REVIEW OF SYSTEMS: CONSTITUTIONAL: Weakness/tiredness. No fever, no chills. HEENT: Normal. ENDOCRINE: No weight gain, no weight loss. CVS: No angina symptoms. No CHF symptoms. No palpitations. No atypical chest pain for CAD. No shortness of breath. No PND, no orthopnea. RESPIRATORY: Cough, no hemoptysis. GI: No nausea, no vomiting. No abdominal pain. : No hematuria. No polyuria. MUSCULOSKELETAL:. No joint swelling. PSYCHIATRIC: Not anxious. No depression. No suicidal thoughts. No homicidal thoughts. SKIN: Intact. No rash. PHYSICAL EXAMINATION: V/S: BP 113/64, respiratory rate 20, heart rate 93, temperature 98.5. Saturation 93% on 2L. HEENT: Normocephalic, atraumatic. Mucosa dry. Pallor positive. No icterus. NECK: Supple. No JVD, no carotid bruit. No lymphadenopathy. LUNGS: Decreased basilar crackles. Clear to auscultation. No rales or rhonchi. HEART: S1, S2 normal. No S3. No murmur, gallop or regurgitation. ABDOMEN: Soft, nontender. Bowel sounds active. No rigidity. No rebound or guarding. No CVA tenderness. EXTREMITIES: 1+ edema but wrinkles are seen on lower extremity today. No clubbing, cyanosis or pedal edema. MUSCULOSKELETAL: No joint swelling. NEUROLOGIC: [Awake, alert, oriented times three. No focal deficit. LYMPHATIC: No lymph nodes palpable. SKIN: Intact and dry. LABS: White count 2.23, hemoglobin 11.5, hematocrit 34.5, platelet count 115. Sodium 141, potassium 4.5, chloride 103, bicarb 23, BUN 8, creatinine 0.45, glucose 186. ASSESSMENT: 1. COPD EXACERBATION 2. ACUTE HYPOXEMIC RESPIRATORY FAILURE 3. URINARY TRACT INFECTION, GRAM NEGATIVE RODS 4. BRAIN CANCER WITH RECURRENCE CURRENTLY ON CHEMOTHERAPY 5. PROPHYLACTIC SEIZURE TREATMENT 6. COPD, OXYGEN DEPENDENT 7. HYPERTENSION 8. DYSLIPIDEMIA 9. OSTEOARTHRITIS 10. DJD SPINE 11. DEPRESSION 12. ANEMIA PLAN: 1. Continue Rocephin 2. Solu-Medrol 3. IV fluids 4. Daily I & O's 5. No anticoagulation secondary to brain tumor TIME SPENT: More than 30 minutes MTDD
--- NOTE | 2017-04-16 13:14 | RS.PTINEVL ---
Subjective - Patient information Date of Evaluation: 04/16/17 Date of Arrival on Unit: 04/12/17 Usual Living Arrangement: With Others Living Arrangement Comments: Lives at home with daughter and family. Medical History: COPD, Diabetes Medical History Comments:: spinal stenosis, Anxiety, Depression Surgical History: Cholecystectomy Surgical History Comments:: Crainiotomy November 2016 Subjective Information/ Patient Comments:: Patient reports slight dizziness when transferring to stand. Her daughter reports she was able to ambulate with a walker mostly independent, and transferred independently prior to this admission. States she needed some help with ADLs. - Level of function Current Equipment Used at Home: Hospital bed, BSC, wheelchair, walker home oxygen Interventions - Objective Patient Orientation: Person, Place Current Interventions: IV's, Oxygen Observation: O2 Sat 93% prior to ambulation. After ambulating 30 feet, O2 Sat 80 -90%. Range of Motion - ROM Right Upper Extremity AROM: WFL's Left Upper Extremity AROM: WFL's Right Lower Extremity AROM: WFL's Left Lower Extremity AROM: WFL's Muscle Strength - Muscle Strength Comments:: Right LE strength generally 4/5. Left LE at 4 to 4+/5. Balance - Sitting Balance and Reactions Static Sitting Balance: Good Dynamic Sitting Balance: Good (-) - Standing Balance and Reactions Static Standing Balance: Good (-) Dynamic Standing Balance: Fair (+) Functional Mobility - Bed Mobility Supine to Sit: CGA, 1 person assist - Transfers Sit to Stand: CGA, 2 person assist, Verbal Cues, Tactile Cues Stand to Sit: CGA, 2 person assist, Verbal Cues, Tactile Cues Stand Pivot Transfers: CGA, 2 person assist, Verbal Cues, Tactile Cues Comments:: Patient needs verbal cues to push with UE's from seated surface. Also needs verbal cues to reach back for armrest of chair prior to sitting down. - Safety Awareness Safety Awareness: Poor Ambulation - Ambulation Weight Bearing Status: FWB Assistive Device Used: Rolling Walker Distance: 60 feet Assistance needed with Ambulation: Min Assist, 2 person assist, Verbal Cues, Tactile Cues Quality of Ambulation: Patient demonstrates decreased stance time on right LE. Exhibits decreased heelstrike and lacks full knee extension at mid stance on right LE. Gait Deviations: Narrow Based gait, Short stride, Lacks step continuity Factors Affecting Ambulation: Decreased Balance, Weakness, Decreased Safety, Cognitive Status, Limited Endurance Treatment time - Time with patient Total treatment time: 21 (mins) Assessment - Assessment Problem List:: Decreased level of function, Requires training/education, Decreased safety/Risk of falls, Weakness Rehab Potential: Good Further Therapy Indicated?: Yes Comments: Patient presents to be candidate for Swing Bed. She presents to be at a high risk for falls with her mobility due to poor safety awareness. Short Term Goals GOAL #1: Sit to stand with consistent use of UE's from seated surface. Goal to be met by: 04/18/17 GOAL #2: Stand to sit w/ consistently reaching back for chair/bed. Goal to be met by: 04/18/17 GOAL #3: Pt amb. with RW 100 feet with CGA of one and good GURVINDER. Goal to be met by: 04/19/17 [facility] Goals GOAL #1: All transfers independent with good safety. Goal to be met by: 04/23/17 GOAL #2: All amb. with RW and SBA, household distances with good safety. Goal to be met by: 04/23/17 Plan Plan of Care: Therapeutic EX, Therapeutic Activity, Self-Care/Home Management Frequency of Treatment: 1-2 X day, as tolerated Duration of Treatment: 1 Week Anticipated Discharge Destination: Home (with family)
[2017-04-16] MEDS: ROCEPHIN 1 GM in SODIUM CHLORIDE 50 ML IV SCH (20:52)
[2017-04-16] MEDS: MIRAPEX PO SCH (20:53)
[2017-04-16] MEDS: CYMBALTA PO SCH (20:54)
[2017-04-17] MEDS: DUONEB NEB SCH ×2 (05:00→11:08)
[2017-04-17 05:10] LABS: HEMATOCRIT 32.2 % (37.0-47.0); MEAN CORPUSCULAR HEMOGLOBIN 30.9 pg (27.0-31.0); MEAN CORPUSCULAR HGB CONC 34.2 (31.8-35.4); MEAN CORPUSCULAR VOLUME 90.4 fl (81.0-99.0); PLATELET COUNT 166 10^3/uL (140-440); RED BLOOD COUNT 3.56 10^6/ul (4.20-5.40); WHITE BLOOD COUNT 3.63 K/ul (4.6-10.2)
[2017-04-17 05:20] LABS: ANISOCYTOSIS NOT PRESENT (NOT PRESENT)
[2017-04-17 05:27] LABS: ALBUMIN 2.6 g/dL (3.4-5.0); ALBUMIN/GLOBULIN RATIO 1.04; BILIRUBIN,TOTAL 0.28 mg/dL (0.00-1.20); BUN/CREATININE RATIO 16.36; CALCIUM 8.7 mg/dL (8.2-10.2); CREATININE 0.55 mg/dL (0.60-1.30); TOTAL PROTEIN 5.1 g/dL (5.8-8.1)
[2017-04-17] MEDS: SYNTHROID PO SCH ×2 (06:07)
[2017-04-17] MEDS: PEPCID PO SCH (06:07)
[2017-04-17] MEDS: HUMULIN R SUBCUT PRN (06:07)
[2017-04-17] MEDS: SODIUM CHLORIDE 1,000 ML IV SCH (06:21)
[2017-04-17] MEDS ORDERED: JANUVIA PO SCH (09:00)
[2017-04-17] MEDS: OXYCONTIN PO SCH (09:13)
[2017-04-17] MEDS: ZESTRIL PO SCH (09:13)
[2017-04-17] MEDS: GLUCOPHAGE PO SCH (09:13)
[2017-04-17] MEDS: KEPPRA PO SCH (09:13)
[2017-04-17] MEDS: COREG PO SCH (09:13)
[2017-04-17] MEDS: RISPERDAL PO SCH (09:13)
[2017-04-17] MEDS: LIPITOR PO SCH (09:14)
[2017-04-17] MEDS: SOLU-MEDROL 40 MG IVP SCH (09:14)
[2017-04-17 09:21] VITALS: BP 125/67; TEMP 97.4
[2017-04-17] MEDS: DRONABINOL 5 MG PO SCH (09:25)
--- NOTE | 2017-04-17 14:04 | PN ---
DATE OF SERVICE: 04/16/17 SUBJECTIVE: The patient was admitted with the COPD exacerbation, bronchitis and failure to thrive. The patient has a history of brain tumor with recurrence. The patient is going through the Chemo therapy. As of now that patient is feeling some better, no coughing and still having difficulty to ambulant and get around. REVIEW OF SYSTEMS: CONSTITUTIONAL: No fever, no chills. HEENT: Normal. ENDOCRINE: No weight gain, no weight loss. CVS: No angina symptoms. No CHF symptoms. No palpitations. No atypical chest pain for CAD. No shortness of breath. No PND, no orthopnea. RESPIRATORY: No cough, no hemoptysis. GI: No nausea, no vomiting. No abdominal pain. : No hematuria. No polyuria. MUSCULOSKELETAL:. No joint swelling. PSYCHIATRIC: Not anxious. No depression. No suicidal thoughts. No homicidal thoughts. SKIN: Intact. No rash. PHYSICAL EXAMINATION: V/S: Blood pressure 141/71, respiratory rate 18, heart rate 62, temperature 97.6 with saturation 91 on 2 liters. HEENT: Normocephalic, atraumatic. Mucosa dry. Pallor positive. No icterus. NECK: Supple. No JVD, no carotid bruit. No lymphadenopathy. LUNGS: Decreased and basilar crackles. No rales or rhonchi. HEART: S1, S2 normal. No S3. No murmur, gallop or regurgitation. ABDOMEN: Soft, nontender. Bowel sounds active. No rigidity. No rebound or guarding. No CVA tenderness. EXTREMITIES: No clubbing, cyanosis. 1+ edema on both lower extremities. . MUSCULOSKELETAL: No joint swelling. NEUROLOGIC: Awake, alert, oriented times three. No focal deficit. LYMPHATIC: No lymph nodes palpable. SKIN: Intact. LABS: WBC 3.17, hgb 10.9, hct 31.8, plt count 152, sodium 141, potassium 4.0, chloride 102, bibcarb 28, BUN 9, creatinine 0.53. ASSESSMENT: 1. COPD exacerbation secondary to the bronchitis 2. Brain cancer with recurrence 3. Hypoxemia with respiratory failure 4. Hypertension 5. Dyslipidemia 6. Anemia 7. Osteoarthritis 8. DJD spine 9. Diabetes PLAN: 1. Evaluate the patient for TCU placement secondary to the inability to ambulate and bronchitis and needing help. 2. Fall precautions 3. Continue the DUO NEBS 4. Rocephin 5. Solu-Medrol 40mg twice a day Follow the patient in daily rounds. TIME SPENT: More than 35 minutes MTDD
--- NOTE | 2017-04-17 15:31 | PN ---
DATE OF SERVICE: 04/15/17 SUBJECTIVE: The patient was admitted with COPD exacerbation and hypoxemic respiratory failure. The patient has brain tumor with recurrence and chemotherapy. Still feeling weak and tired and leg edema is worse today. The patient's daughter is in the room and has a lot questions and all of them are answered. REVIEW OF SYSTEMS: CONSTITUTIONAL: No fever, no chills. HEENT: Normal. ENDOCRINE: No weight gain, no weight loss. CVS: No angina symptoms. No CHF symptoms. No palpitations. No atypical chest pain for CAD. No shortness of breath. No PND, no orthopnea. RESPIRATORY: No cough, no hemoptysis. GI: No nausea, no vomiting. No abdominal pain. : No hematuria. No polyuria. MUSCULOSKELETAL:. No joint swelling. PSYCHIATRIC: Not anxious. No depression. No suicidal thoughts. No homicidal thoughts. SKIN: Intact. No rash. PHYSICAL EXAMINATION: V/S: Blood pressure 155/71, respiratory rate 20, heart rate 72, temperature 98.0. HEENT: Normocephalic, atraumatic. Mucosa dry. Pallor positive. No icterus. NECK: Supple. No JVD, no carotid bruit. No lymphadenopathy. LUNGS: Decreased and basilar crackles. No rales or rhonchi. HEART: S1, S2 normal. No S3. No murmur, gallop or regurgitation. ABDOMEN: Soft, nontender. Bowel sounds active. No rigidity. No rebound or guarding. No CVA tenderness. EXTREMITIES: No clubbing, cyanosis. 1+ edema. MUSCULOSKELETAL: No joint swelling. NEUROLOGIC: Awake, alert, oriented times three. No focal deficit. LYMPHATIC: No lymph nodes palpable. SKIN: Intact. LABS: WBC 3.40, hgb 11.1, hct 32.9, plt count 145, Sodium 140, potassium 4.3, chloride 103, bicarb 29, BUN 8, creainine 0.51. ASSESSMENT: 1. COPD exacerbation secondary to the bronchitis 2. Hypoxemic respiratory failure 3. Chronic COPD with oxygen dependent 4. History of brain tumor with recurrence and chemo therapy 5. Failure to thrive 6. Ataxia 7. DJD spine 8. Chronic pain syndrome PLAN: 1. Continue Rocephin 2. DUO NEBS 3. Accu-checks with coverage 4. Solu-Medrol 40mg Q 12 hour 5. No anticoagulation secondary to the brain tumor 6. Daily I&O's 7. Possible evaluation for the TCU care as patient been having trouble ambulating and needing more help at home as per the daughter. TIME SPENT: More than 30 minutes MTDD
--- NOTE | 2017-04-19 15:33 | PN ---
DATE OF SERVICE: 04/14/17 SUBJECTIVE: The patient was admitted with the COPD exacerbation, hypoxemic respiratory failure and bronchitis. The patient is up and about still shortness of breath with minimal exertion. REVIEW OF SYSTEMS: CONSTITUTIONAL: No fever, no chills. HEENT: Normal. ENDOCRINE: No weight gain, no weight loss. CVS: No angina symptoms. No CHF symptoms. No palpitations. No atypical chest pain for CAD. No shortness of breath. No PND, no orthopnea. RESPIRATORY: No cough, no hemoptysis. GI: No nausea, no vomiting. No abdominal pain. : No hematuria. No polyuria. MUSCULOSKELETAL:. No joint swelling. PSYCHIATRIC: Not anxious. No depression. No suicidal thoughts. No homicidal thoughts. SKIN: Intact. No rash. PHYSICAL EXAMINATION: V/S: Blood pressure 136/70, respiratory rate 20, heart rate 80, temperature 97.7 and saturation is 90% on 2 liters. HEENT: Normocephalic, atraumatic. Mucosa dry. NECK: Supple. No JVD, no carotid bruit. No lymphadenopathy. LUNGS: Decreased and basilar crackles left more than the right. No rales or rhonchi. HEART: S1, S2 normal. No S3. No murmur, gallop or regurgitation. ABDOMEN: Soft, nontender. Bowel sounds active. No rigidity. No rebound or guarding. No CVA tenderness. EXTREMITIES: No clubbing, cyanosis. 1+ edema with lots of wrinkles. MUSCULOSKELETAL: No joint swelling. Grossly Intact. NEUROLOGIC: Awake, alert, oriented times three. No focal deficit. LYMPHATIC: No lymph nodes palpable. SKIN: Intact. LABS: WBC 3.91, hgb 10.8, hct 32.0, plt count 133, sodium 142, potassium 4.3, chloride 104, bicarb 29, BUN 8, creatinine 0.5, glucose 213. ASSESSMENT: 1. COPD exacerbation secondary to bronchitis 2. History of recurrence of the brain cancer, on chemotherapy 3. COPD oxygen dependence 4. Coronary artery disease 5. Congestive heart failure 6. Hypertension 7. Dyslipidemia 8. Chronic pain syndrome PLAN: 1. Continue the Rocephin 2. DUO NEBS 3. Solu-Medrol 40mg Q 12 hours 4. IV fluids at 40ml per hours 5. No anticoagulation secondary to the brain mass. TIME SPENT: More than 30 minutes MTDD
== END 2017-04-17 11:50 | disposition swing bed (61) | DRG 202 ==
LOC: ED 13:54 → MEDSURG B 16:14 → MEDSURG A 16:46
PROVIDERS: ADMIT Emergency Medicine; ATTEND Emergency Medicine
DX: J20.9 Acute bronchitis, unspecified (principal); J96.01 Acute respiratory failure with hypoxia; J44.0 Chronic obstructive pulmonary disease with (acute) lower respiratory infection; J44.1 Chronic obstructive pulmonary disease with (acute) exacerbation; N39.0 Urinary tract infection, site not specified; B96.89 Other specified bacterial agents as the cause of diseases classified elsewhere; I10 Essential (primary) hypertension; D64.9 Anemia, unspecified; I50.9 Heart failure, unspecified; G40.909 Epilepsy, unspecified, not intractable, without status epilepticus; R62.7 Adult failure to thrive; R27.0 Ataxia, unspecified; D49.6 Neoplasm of unspecified behavior of brain; I25.10 Atherosclerotic heart disease of native coronary artery without angina pectoris; E78.5 Hyperlipidemia, unspecified; M19.90 Unspecified osteoarthritis, unspecified site; M47.9 Spondylosis, unspecified; E03.9 Hypothyroidism, unspecified; F32.9 Major depressive disorder, single episode, unspecified; G89.4 Chronic pain syndrome; F17.200 Nicotine dependence, unspecified, uncomplicated; R05 Cough; R53.1 Weakness; Z99.81 Dependence on supplemental oxygen; Z98.890 Other specified postprocedural states; Z79.899 Other long term (current) drug therapy
CPT/HCPCS: 36415; 80053; 81001; 82550; 82803; 82962; 85007; 85025; 87086; 87186; 93005; 93010; 94640; 96360; 99223; 99233; 99234; 99284

== ENCOUNTER 2017-04-17 12:07 | Inpatient (IN) ==
[2017-04-17] MEDS ORDERED: NON-FORMULARY MEDICATION (Duloxetine Hcl [Duloxetine Hcl] 60 MG) PO SCH (12:30)
--- NOTE | 2017-04-17 15:47 | RS.PTINEVL ---
Subjective - Patient information Date of Evaluation: 04/17/17 Date of Arrival on Unit: 04/17/17 Admitted From:: In-House Transfer Usual Living Arrangement: With Others Living Arrangement Comments: Lives at home with daughter and family. Home Environment: House, Stairs (few) (one to get into home) Medical History: COPD, Diabetes Medical History Comments:: spinal stenosis, Depression, Anxiety Subjective Information/ Patient Comments:: Patient states she was ambulatory with a rolling walker prior to her acute hospital admission. She and her daughter state she could transfer independently. Daughter states she needed help with some ADL's. Patient states she has not driven in over a year. - Level of function Current Level of Function: Partially Dependent Current Equipment Used at Home: hospital bed, BSC, WC, walker, home oxygen Interventions - Objective Patient Orientation: Person, Place Current Interventions: IV's, Telemetry Range of Motion - ROM Right Lower Extremity AROM: WFL's Left Lower Extremity AROM: WFL's Muscle Strength - Muscle Strength Comments:: right LE weaker, muscle strength generally 4- to 4/5 of right hip and knee. Left LE generally 4+/5. Balance - Sitting Balance and Reactions Static Sitting Balance: Good Dynamic Sitting Balance: Good (-) - Standing Balance and Reactions Static Standing Balance: Good (-) Dynamic Standing Balance: Fair (+) Functional Mobility - Bed Mobility Supine to Sit: CGA, 1 person assist, Verbal Cues, Tactile Cues - Transfers Sit to Stand: CGA, 2 person assist, Verbal Cues, Tactile Cues Stand to Sit: CGA, 2 person assist, Verbal Cues, Tactile Cues Stand Pivot Transfers: CGA, 2 person assist, Verbal Cues, Tactile Cues Comments:: Needs reminding to push from chair/bed for sit to stand transfer and to reach back for seat before sitting down. Also needs cues to keep walker with her as she turns around to sit on bed or chair. - Safety Awareness Safety Awareness: Poor Ambulation - Ambulation Weight Bearing Status: FWB Assistive Device Used: Rolling Walker Distance: 80 feet Assistance needed with Ambulation: CGA, Min Assist, 2 person assist, Verbal Cues , Tactile Cues Gait Deviations: Narrow Based gait, Short stride, Lacks step continuity Ambulation Comments: Decreased stance on right LE. Decreased right hip and knee flexion and lacks full knee extension at mid stance. Also demonstrates decreased heelstrike and toe off on right LE. Factors Affecting Ambulation: Decreased Balance, Weakness, Decreased Coordination, Decreased Safety, Cognitive Status Treatment time - Time with patient Total treatment time: 18 (mins) Assessment - Assessment Problem List:: Decreased level of function, Requires training/education, Decreased safety/Risk of falls, Weakness Rehab Potential: Good Further Therapy Indicated?: Yes Short Term Goals GOAL #1: Sit to stand with consistent use of UE's from seated surface. Goal to be met by: 04/19/17 GOAL #2: Stand to sit w/ consistently reaching back for chair/bed. Goal to be met by: 04/19/17 GOAL #3: Pt amb. with RW 100 feet with CGA of one and good GURVINDER. Goal to be met by: 04/19/17 Transportation Aide Goals GOAL #1: All transfers independent with good safety. Goal to be met by: 04/23/17 GOAL #2: All amb. with RW and SBA, household distances with good safety. Goal to be met by: 04/23/17 Plan Plan of Care: Therapeutic EX, Neuromuscular Re-Educ, Therapeutic Activity, Self- Care/Home Management Frequency of Treatment: 1-2 X day, as tolerated Duration of Treatment: 5-7 days Anticipated Discharge Destination: Home (with daughter/son)
--- NOTE | 2017-04-17 16:18 | RS.OTINEVL ---
Subjective - Patient information Date of Evaluation: 04/17/17 Date of Arrival on Unit: 04/17/17 Admitted From:: In-House Transfer Usual Living Arrangement: With Others Living Arrangement Comments: Lives at home with daughter -in-law and sons and family. has one step to get in her house. Pt uses a rollator walker at home. Home Environment: House, Stairs (few) (one to get into home) Medical History: COPD, Diabetes Medical History Comments:: spinal stenosis, Depression, Anxiety Surgical History: Hysterectomy Subjective Information/ Patient Comments:: "I would like some coffee." "Three people have said they will get me some and they haven't." - Level of function Abilities prior to this admission: Pt was living at home with her family and they help her when she needs it. Current Level of Function: Partially Dependent Comments: Pt has not driven a car in a year. Pt uses a rollator walker for transfers. Pt is independent with bed mobility and with sit to stand. Current Equipment Used at Home: hospital bed, BSC, WC, walker, home oxygen Pain Assessment - Pain Pain Score: 5 Side: right Pain Location Body Site: Hand Pain Aggravating Factors: Standing, Walking Pain Alleviating Factors: Medication, Position Change Interventions - Objective Patient Orientation: Person, Situation Current Interventions: IV's, Oxygen Observation: Pt has difficulty with word findage. Pt will answer a question incorrectly and then change her answer. Interventions - ROM Right Upper Extremity AROM: WFL's Left Upper Extremity AROM: WFL's - Strength Right Upper Extremity Strength: Mild Weakness - Sensation Right Upper Extremity Sensation: Intact/Normal Left Upper Extremity Sensation: Intact/Normal Balance - Sitting Balance Static Sitting Balance: Good Dynamic Sitting Balance: Good - Standing Balance Static Standing Balance: Good Dynamic Standing Balance: Fair ADL Skills - Self Feeding Self Feeding: Independent - Grooming Grooming: Set Up Only - Bathing Bathing UE: CGA Bathing LE: CGA - Dressing Dressing UE: CGA Dressing LE: CGA - Toilet Management Toileting Management: Min Assist Functional Mobility - Bed Mobility Rolling R/L: Independent Scooting: Independent Supine to Sit: Independent Sit to Supine: Independent - Transfers Sit to Stand: Supervision Stand to Sit: CGA Stand Pivot Transfers: CGA - Ambulation Weight Bearing Status: FWB Assistive Device Used: Rolling Walker Assistance needed with Ambulation: CGA - Safety Awareness Safety Awareness: Fair Additional Treatment Performed - Time with patient Total treatment time: 25 Activities Patient Interests:: Watching Television Patient Education Patient Education: Home Exercise Program, Home Safety, Education of Plan of Care Teaching Recipient: Patient Teaching Methods: Discussion Assessment Problem List:: Decreased level of function, Requires training/education, Decreased safety/Risk of falls, Weakness Rehab Potential: Good Further Therapy Indicated?: Yes Short Term Goals - Goals GOAL 1: Pt to tolerate sink level ADLS with SUP Goal to be met by: 04/24/17 GOAL 2: Pt to increase RUE strength to 4/5. Goal to be met by: 04/24/17 GOAL 3: Pt to tolerate 15 minutes of activity with rests PRN. Goal to be met by: 04/24/17 Core Winder Machine Operator Goals GOAL 1: Pt to tolerate sink level ADLS with MOD-I Goal to be met by: 05/01/17 GOAL 2: Pt to increase RUE strength to 4+/5. Goal to be met by: 05/01/17 GOAL 3: Pt to tolerate 20 minutes of activity with rests PRN. Goal to be met by: 05/01/17 Plan Plan of Care: Therapeutic EX, Neuromuscular Re-Educ, Therapeutic Activity, Self- Care/Home Management Frequency of Treatment: 1-2 X day, as tolerated Duration of Treatment: 2 Weeks Anticipated Discharge Destination: Home
[2017-04-17] MEDS: COREG PO SCH (17:16)
[2017-04-17] MEDS: GLUCOPHAGE PO SCH (17:16)
[2017-04-17] MEDS: PREDNISONE PO SCH (17:17)
[2017-04-17] MEDS: PEPCID PO SCH (17:17)
[2017-04-17] MEDS: DUONEB NEB SCH ×2 (17:20→23:38)
[2017-04-17] MEDS ORDERED: NON-FORMULARY MEDICATION (Lisinopril [Lisinopril] 20 MG) PO SCH ×22 (21:00)
[2017-04-17] MEDS ORDERED: OXYCONTIN PO SCH (21:00)
[2017-04-17] MEDS ORDERED: PRAMIPEXOLE DI HCL 0.25 MG PO SCH (21:00)
[2017-04-17] MEDS ORDERED: ROCEPHIN 1 GM in SODIUM CHLORIDE 50 ML IV SCH (21:00)
[2017-04-17] MEDS: HUMULIN R SUBCUT PRN (21:03)
[2017-04-17] MEDS: DRONABINOL 5 MG PO SCH (21:04)
[2017-04-17] MEDS: OXYCONTIN PO SCH (21:04)
[2017-04-17] MEDS: ZESTRIL PO SCH (21:05)
[2017-04-17] MEDS: CYMBALTA PO SCH (21:05)
[2017-04-17] MEDS: RISPERDAL PO SCH (21:06)
[2017-04-17] MEDS: KEPPRA PO SCH (21:06)
[2017-04-17] MEDS: MIRAPEX PO SCH (21:06)
[2017-04-18] MEDS: DUONEB NEB SCH ×4 (04:35→23:37)
[2017-04-18 05:48] LABS: BASOPHILS # (AUTO) 0.1 K/uL (0-0.2); EOSINOPHILS % (AUTO) 0.4 % (0.0-7.0); HEMATOCRIT 34.7 % (37.0-47.0); HEMOGLOBIN 11.8 g/dl (12.0-16.0); IMMATURE GRANULOCYTE % (AUTO) 5.2 % (0.0-5.0); LYMPHOCYTES # (AUTO) 0.7 K/uL (0.60-3.4); MEAN CORPUSCULAR HEMOGLOBIN 30.9 pg (27.0-31.0); MEAN CORPUSCULAR VOLUME 90.8 fl (81.0-99.0); MONOCYTES # (AUTO) 0.6 K/uL (0.4-2.0); NEUTROPHILS # (AUTO) 3.2 K/ul (2.0-6.9); NEUTROPHILS % (AUTO) 66.4; PLATELET COUNT 173 10^3/uL (140-440); RED BLOOD COUNT 3.82 10^6/ul (4.20-5.40); WHITE BLOOD COUNT 4.85 K/ul (4.6-10.2)
[2017-04-18] MEDS ORDERED: LEVOTHYROXINE SODIUM 225 MCG PO SCH (06:00)
[2017-04-18 06:06] LABS: ALBUMIN 2.7 g/dL (3.4-5.0); ALBUMIN/GLOBULIN RATIO 1.17; ANION GAP 15.9; BILIRUBIN,TOTAL 0.27 mg/dL (0.00-1.20); BUN/CREATININE RATIO 14.03; CALCIUM 8.8 mg/dL (8.2-10.2); CREATININE 0.57 mg/dL (0.60-1.30); POTASSIUM 3.9 mmol/L (3.5-5.10)
[2017-04-18] MEDS: SYNTHROID PO SCH ×2 (06:09)
[2017-04-18] MEDS: PEPCID PO SCH ×2 (06:10→16:47)
[2017-04-18] MEDS: GLUCOPHAGE PO SCH ×2 (08:54→16:48)
[2017-04-18] MEDS: LIPITOR PO SCH (08:54)
[2017-04-18] MEDS: JANUVIA PO SCH (08:54)
[2017-04-18] MEDS: OXYCONTIN PO SCH ×2 (08:54→20:07)
[2017-04-18] MEDS: DRONABINOL 5 MG PO SCH ×2 (08:54→20:39)
[2017-04-18] MEDS: PREDNISONE PO SCH ×2 (08:55→16:47)
[2017-04-18] MEDS: RISPERDAL PO SCH ×2 (08:55→20:07)
[2017-04-18] MEDS: ZESTRIL PO SCH ×2 (08:55→20:07)
[2017-04-18] MEDS: KEPPRA PO SCH ×2 (08:55→20:07)
[2017-04-18] MEDS: COREG PO SCH ×2 (08:55→16:47)
[2017-04-18] MEDS ORDERED: NON-FORMULARY MEDICATION (Atorvastatin Calcium [Atorvastatin Calcium] 40 MG) PO SCH ×22 (09:00)
[2017-04-18] MEDS: HUMULIN R SUBCUT PRN ×3 (11:50→20:23)
[2017-04-18] MEDS: MIRAPEX PO SCH (20:07)
[2017-04-18] MEDS: CYMBALTA PO SCH (20:07)
[2017-04-19] MEDS: DUONEB NEB SCH ×4 (05:11→23:05)
[2017-04-19] MEDS: PEPCID PO SCH ×2 (05:38→17:12)
[2017-04-19] MEDS: SYNTHROID PO SCH ×2 (05:38)
[2017-04-19] MEDS: HUMULIN R SUBCUT PRN (05:38)
[2017-04-19] MEDS: GLUCOPHAGE PO SCH ×2 (09:42→17:12)
[2017-04-19] MEDS: RISPERDAL PO SCH ×2 (09:42→20:50)
[2017-04-19] MEDS: JANUVIA PO SCH (09:42)
[2017-04-19] MEDS: PREDNISONE PO SCH ×2 (09:42→17:12)
[2017-04-19] MEDS: LIPITOR PO SCH (09:42)
[2017-04-19] MEDS: KEPPRA PO SCH ×2 (09:42→20:50)
[2017-04-19] MEDS: COREG PO SCH ×2 (09:43→17:13)
[2017-04-19] MEDS: ZESTRIL PO SCH ×2 (09:43→20:51)
[2017-04-19] MEDS: DRONABINOL 5 MG PO SCH ×2 (09:52→20:48)
[2017-04-19] MEDS: OXYCONTIN PO SCH ×2 (09:52→20:50)
[2017-04-19] MEDS: CYMBALTA PO SCH (20:49)
[2017-04-19] MEDS: MIRAPEX PO SCH (20:50)
[2017-04-20] MEDS: DUONEB NEB SCH ×4 (05:05→23:00)
[2017-04-20] MEDS: SYNTHROID PO SCH ×2 (05:33)
[2017-04-20] MEDS: PEPCID PO SCH ×2 (05:34→16:56)
[2017-04-20] MEDS: PREDNISONE PO SCH ×2 (08:20→16:55)
[2017-04-20] MEDS: GLUCOPHAGE PO SCH ×2 (08:21→16:55)
[2017-04-20] MEDS: RISPERDAL PO SCH ×2 (08:21→20:33)
[2017-04-20] MEDS: COREG PO SCH ×2 (08:22→16:56)
[2017-04-20] MEDS: LIPITOR PO SCH (09:10)
[2017-04-20] MEDS: DRONABINOL 5 MG PO SCH ×2 (09:10→20:29)
[2017-04-20] MEDS: KEPPRA PO SCH ×2 (09:10→20:30)
[2017-04-20] MEDS: JANUVIA PO SCH (09:11)
[2017-04-20] MEDS: ZESTRIL PO SCH ×2 (09:12→20:31)
[2017-04-20] MEDS: OXYCONTIN PO SCH ×2 (09:28→20:30)
[2017-04-20] MEDS: HUMULIN R SUBCUT PRN ×3 (12:08→20:29)
[2017-04-20] MEDS: CYMBALTA PO SCH (20:29)
[2017-04-20] MEDS: MIRAPEX PO SCH (20:30)
[2017-04-21] MEDS: DUONEB NEB SCH ×4 (05:05→23:07)
[2017-04-21 05:21] LABS: BASOPHILS # (AUTO) 0.1 K/uL (0-0.2); BASOPHILS % (AUTO) 1.1 % (0.0-3.0); EOSINOPHILS % (AUTO) 0.7 % (0.0-7.0); HEMATOCRIT 35.3 % (37.0-47.0); HEMOGLOBIN 11.9 g/dl (12.0-16.0); IMMATURE GRANULOCYTE % (AUTO) 4.5 % (0.0-5.0); LYMPHOCYTES # (AUTO) 1.4 K/uL (0.60-3.4); LYMPHOCYTES % (AUTO) 25.5 (10.0-50.0); MEAN CORPUSCULAR HEMOGLOBIN 31.2 pg (27.0-31.0); MEAN CORPUSCULAR HGB CONC 33.7 (31.8-35.4); MEAN CORPUSCULAR VOLUME 92.4 fl (81.0-99.0); MONOCYTES # (AUTO) 0.6 K/uL (0.4-2.0); MONOCYTES % (AUTO) 10.3 (0-10); NEUTROPHILS # (AUTO) 3.1 K/ul (2.0-6.9); NEUTROPHILS % (AUTO) 57.9; PLATELET COUNT 147 10^3/uL (140-440); RED BLOOD COUNT 3.82 10^6/ul (4.20-5.40); WHITE BLOOD COUNT 5.34 K/ul (4.6-10.2)
[2017-04-21 05:33] LABS: ALBUMIN 2.7 g/dL (3.4-5.0); ALBUMIN/GLOBULIN RATIO 1.08; ANION GAP 9.2; BILIRUBIN,TOTAL 0.4 mg/dL (0.00-1.20); BUN/CREATININE RATIO 13.72; CALCIUM 8.9 mg/dL (8.2-10.2); CREATININE 0.51 mg/dL (0.60-1.30); POTASSIUM 3.2 mmol/L (3.5-5.10); TOTAL PROTEIN 5.2 g/dL (5.8-8.1)
[2017-04-21] MEDS: SYNTHROID PO SCH ×2 (06:07→06:08)
[2017-04-21] MEDS: HUMULIN R SUBCUT PRN ×3 (06:08→17:06)
[2017-04-21] MEDS: PEPCID PO SCH ×2 (06:08→17:04)
[2017-04-21] MEDS: DRONABINOL 5 MG PO SCH ×2 (08:40→21:00)
[2017-04-21] MEDS: OXYCONTIN PO SCH ×2 (08:41→21:00)
[2017-04-21] MEDS: ZESTRIL PO SCH ×2 (08:41→20:59)
[2017-04-21] MEDS: JANUVIA PO SCH (08:41)
[2017-04-21] MEDS: KEPPRA PO SCH ×2 (08:41→21:00)
[2017-04-21] MEDS: LIPITOR PO SCH (08:42)
[2017-04-21] MEDS: PREDNISONE PO SCH ×2 (08:42→17:03)
[2017-04-21] MEDS: GLUCOPHAGE PO SCH ×2 (08:43→17:04)
[2017-04-21] MEDS: COREG PO SCH ×2 (08:43→17:04)
[2017-04-21] MEDS: RISPERDAL PO SCH ×2 (08:43→21:00)
[2017-04-21] MEDS ORDERED: K-DUR PO STA (15:28)
[2017-04-21] MEDS: CYMBALTA PO SCH (20:59)
[2017-04-21] MEDS: MIRAPEX PO SCH (21:00)
[2017-04-22] MEDS: DUONEB NEB SCH ×4 (05:11→23:16)
[2017-04-22] MEDS: PEPCID PO SCH ×2 (06:10→17:11)
[2017-04-22] MEDS: SYNTHROID PO SCH ×2 (06:10)
[2017-04-22] MEDS: DRONABINOL 5 MG PO SCH ×2 (08:16→21:06)
[2017-04-22] MEDS: OXYCONTIN PO SCH ×2 (08:16→21:07)
[2017-04-22] MEDS: ZESTRIL PO SCH ×2 (08:16→21:07)
[2017-04-22] MEDS: RISPERDAL PO SCH ×2 (08:16→21:07)
[2017-04-22] MEDS: COREG PO SCH ×2 (08:17→17:11)
[2017-04-22] MEDS: LIPITOR PO SCH (08:17)
[2017-04-22] MEDS: GLUCOPHAGE PO SCH ×2 (08:17→17:11)
[2017-04-22] MEDS: PREDNISONE PO SCH ×2 (08:17→17:11)
[2017-04-22] MEDS: JANUVIA PO SCH (08:17)
[2017-04-22] MEDS: KEPPRA PO SCH ×2 (08:17→21:07)
--- NOTE | 2017-04-22 09:41 | PN ---
DATE OF SERVICE: 04/20/17 SUBJECTIVE: The patient was admitted with the COPD exacerbation, failure to thrive and weakness been put in the TCU care. She is walking some with the walker, leg edema is better. REVIEW OF SYSTEMS: CONSTITUTIONAL: No fever, no chills. HEENT: Normal. ENDOCRINE: No weight gain, no weight loss. CVS: No angina symptoms. No CHF symptoms. No palpitations. No atypical chest pain for CAD. No shortness of breath. No PND, no orthopnea. RESPIRATORY: No cough, no hemoptysis. GI: No nausea, no vomiting. No abdominal pain. : No hematuria. No polyuria. MUSCULOSKELETAL:. No joint swelling. PSYCHIATRIC: Not anxious. No depression. No suicidal thoughts. No homicidal thoughts. SKIN: Intact. No rash. PHYSICAL EXAMINATION: V/S: Blood pressure 146/72, respiratory rate 20, heart rate 69 and temperature 97.9 with saturation 93% on 2 liters. HEENT: Normocephalic, atraumatic. Mucosa dry. Pallor positive. No icterus. NECK: Supple. No JVD, no carotid bruit. No lymphadenopathy. LUNGS: Decreased and clear to auscultation. No rales or rhonchi. HEART: S1, S2 normal. No S3. No murmur, gallop or regurgitation. ABDOMEN: Soft, nontender. Bowel sounds active. No rigidity. No rebound or guarding. No CVA tenderness. EXTREMITIES: No clubbing, cyanosis or pedal edema. MUSCULOSKELETAL: No joint swelling. NEUROLOGIC: Awake, alert, oriented times three. No focal deficit. LYMPHATIC: No lymph nodes palpable. SKIN: Intact. LABS: WBC 4.85, hgb 11.9, hct 44.7, plt count 173, sodium 144, potassium 3.9, chloride 100, Bicarb 32, BUN 8, creatinine 0.57, glucose 143. ASSESSMENT: 1. Weakness and failure thrive 2. COPD exacerbation secondary to the bronchitis 3. Hypoxemia secondary to COPD exacerbation 4. History of brain tumor on chemotherapy, status post radiation 5. DJD spine 6. Chronic pain syndrome PLAN: 1. Continue PT/OT evaluation with activity 2. Accu-checks with coverage 3. Daily I&O's TIME SPENT: More than 35 minutes MTDD
--- NOTE | 2017-04-22 09:53 | PN ---
DATE OF SERVICE: 04/21/17 SUBJECTIVE: The patient was admitted with the COPD exacerbation, bronchitis, weakness and not able to walk. After the initial treatment for the COPD the patient was admitted to the TCU care for physical therapy and occupational therapy. Been walking with the walker been needing some help. The patient's daughter in the room had a lot of questions everything been answered. REVIEW OF SYSTEMS: CONSTITUTIONAL: No fever, no chills. HEENT: Normal. ENDOCRINE: No weight gain, no weight loss. CVS: No angina symptoms. No CHF symptoms. No palpitations. No atypical chest pain for CAD. No shortness of breath. No PND, no orthopnea. RESPIRATORY: No cough, no hemoptysis. GI: No nausea, no vomiting. No abdominal pain. : No hematuria. No polyuria. MUSCULOSKELETAL:. No joint swelling. PSYCHIATRIC: Not anxious. No depression. No suicidal thoughts. No homicidal thoughts. SKIN: Intact. No rash. PHYSICAL EXAMINATION: V/S: Blood pressure 156/73, respiratory rate 16, heart rate 76, temperature 96.8 and saturation 94% on the 2 liters. HEENT: Normocephalic, atraumatic. Mucosa dry. Pallor positive. No icterus. NECK: Supple. No JVD, no carotid bruit. No lymphadenopathy. LUNGS: Bilateral entry is decreased and some basilar crackles. No rales or rhonchi. HEART: S1, S2 normal. No S3. No murmur, gallop or regurgitation. ABDOMEN: Soft, nontender. Bowel sounds active. No rigidity. No rebound or guarding. No CVA tenderness. EXTREMITIES: No clubbing, cyanosis or pedal edema. MUSCULOSKELETAL: No joint swelling. NEUROLOGIC: Awake, alert, oriented times three. No focal deficit. LYMPHATIC: No lymph nodes palpable. SKIN: Intact. LABS: Sodium 139, potassium 3.2, chloride 107, Bicarb 26, BUN 7, creatinine 0.51, WBC 5.34, hgb 11.9, hct 35.4, plt count 147. ASSESSMENT: 1. Hypokalemia 2. COPD exacerbation 3. Status post COPD with O2 dependency 4. Brain tumor with recurrence, status post radiation now on chemo PLAN: 1. Continue 2 liters nasal cannula 2. Will replace Potassium 3. Daily I&O's Will follow the patient in daily rounds. TIME SPENT: More than 30 minutes MTDD
[2017-04-22] MEDS: HUMULIN R SUBCUT PRN ×2 (17:11→21:06)
[2017-04-22] MEDS: CYMBALTA PO SCH (21:06)
[2017-04-22] MEDS: MIRAPEX PO SCH (21:07)
[2017-04-23] MEDS: DUONEB NEB SCH ×4 (05:16→23:20)
[2017-04-23] MEDS: PEPCID PO SCH ×2 (05:53→17:02)
[2017-04-23] MEDS: SYNTHROID PO SCH ×2 (05:53)
[2017-04-23] MEDS: HUMULIN R SUBCUT PRN ×4 (05:54→20:00)
[2017-04-23] MEDS: OXYCONTIN PO SCH ×2 (08:39→20:01)
[2017-04-23] MEDS: PREDNISONE PO SCH ×2 (08:39→17:02)
[2017-04-23] MEDS: LIPITOR PO SCH (08:39)
[2017-04-23] MEDS: DRONABINOL 5 MG PO SCH ×2 (08:39→20:01)
[2017-04-23] MEDS: GLUCOPHAGE PO SCH ×2 (08:40→17:02)
[2017-04-23] MEDS: JANUVIA PO SCH (08:40)
[2017-04-23] MEDS: RISPERDAL PO SCH ×2 (08:40→20:01)
[2017-04-23] MEDS: COREG PO SCH ×2 (08:40→17:02)
[2017-04-23] MEDS: ZESTRIL PO SCH ×2 (08:40→20:01)
[2017-04-23] MEDS: KEPPRA PO SCH ×2 (08:40→20:01)
[2017-04-23] MEDS: MIRAPEX PO SCH (20:01)
[2017-04-23] MEDS: CYMBALTA PO SCH (20:01)
[2017-04-24 04:53] LABS: BASOPHILS # (AUTO) 0.1 K/uL (0-0.2); BASOPHILS % (AUTO) 0.7 % (0.0-3.0); EOSINOPHILS % (AUTO) 0.3 % (0.0-7.0); HEMATOCRIT 34.1 % (37.0-47.0); HEMOGLOBIN 11.4 g/dl (12.0-16.0); IMMATURE GRANULOCYTE % (AUTO) 4.6 % (0.0-5.0); LYMPHOCYTES # (AUTO) 1.5 K/uL (0.60-3.4); LYMPHOCYTES % (AUTO) 20.4 (10.0-50.0); MEAN CORPUSCULAR HEMOGLOBIN 31.6 pg (27.0-31.0); MEAN CORPUSCULAR HGB CONC 33.4 (31.8-35.4); MEAN CORPUSCULAR VOLUME 94.5 fl (81.0-99.0); MONOCYTES # (AUTO) 0.6 K/uL (0.4-2.0); MONOCYTES % (AUTO) 8.4 (0-10); NEUTROPHILS # (AUTO) 4.7 K/ul (2.0-6.9); NEUTROPHILS % (AUTO) 65.6; PLATELET COUNT 142 10^3/uL (140-440); RED BLOOD COUNT 3.61 10^6/ul (4.20-5.40); WHITE BLOOD COUNT 7.12 K/ul (4.6-10.2)
[2017-04-24] MEDS: DUONEB NEB SCH ×4 (05:20→22:55)
[2017-04-24 05:24] LABS: ALBUMIN 2.7 g/dL (3.4-5.0); ALBUMIN/GLOBULIN RATIO 1.08; ANION GAP 10.9; BILIRUBIN,TOTAL 0.32 mg/dL (0.00-1.20); BUN/CREATININE RATIO 15.09; CALCIUM 8.7 mg/dL (8.2-10.2); CREATININE 0.53 mg/dL (0.60-1.30); POTASSIUM 3.9 mmol/L (3.5-5.10); TOTAL PROTEIN 5.2 g/dL (5.8-8.1)
[2017-04-24] MEDS: HUMULIN R SUBCUT PRN ×3 (05:35→21:06)
[2017-04-24] MEDS: SYNTHROID PO SCH ×2 (05:36)
[2017-04-24] MEDS: PEPCID PO SCH ×2 (05:36→17:10)
[2017-04-24] MEDS: ZESTRIL PO SCH ×2 (09:15→21:05)
[2017-04-24] MEDS: LIPITOR PO SCH (09:16)
[2017-04-24] MEDS: JANUVIA PO SCH (09:16)
[2017-04-24] MEDS: PREDNISONE PO SCH ×2 (09:16→17:11)
[2017-04-24] MEDS: KEPPRA PO SCH ×2 (09:16→21:05)
[2017-04-24] MEDS: RISPERDAL PO SCH ×2 (09:16→21:05)
[2017-04-24] MEDS: COREG PO SCH ×2 (09:16→17:11)
[2017-04-24] MEDS: OXYCONTIN PO SCH ×2 (09:16→21:05)
[2017-04-24] MEDS: GLUCOPHAGE PO SCH ×2 (09:16→17:10)
[2017-04-24] MEDS: DRONABINOL 5 MG PO SCH ×2 (09:17→21:04)
--- NOTE | 2017-04-24 20:28 | CT ---
EXAM: CT head without contrast 04/24/2017. Sagittal and coronal reformatted images obtained HISTORY: Fall COMPARISON: 04/12/2017 FINDINGS: There is no evidence of intracranial hemorrhage. The midline is maintained. There is no h ydrocephalus. No cerebellar tonsillar ectopia. Evaluation of the calvarium shows no fracture. Po stoperative changes of the left calvarium. Stable postoperative appearance within the left temporal lobe. Ex vacuo dilatation of the left temporal horn. The mastoid air cells are normally pneumatized . IMPRESSION: No acute intracranial abnormality. Stable chronic and postoperative findings. No acute change.
--- NOTE | 2017-04-24 20:33 | DI ---
EXAM: Right elbow three view HISTORY: Fall COMPARISON: None FINDINGS: No fracture or dislocation visualized. The alignment is normal. Questionable joint effusio n seen anteriorly with no posterior fat pad. IMPRESSION: No fracture or dislocation visualized. Questionable joint effusion. Consider short-ter m follow-up radiographs if symptoms persist.
[2017-04-24] MEDS: MIRAPEX PO SCH (21:05)
[2017-04-24] MEDS: CYMBALTA PO SCH (21:05)
[2017-04-25 05:08] VITALS: BP 134/74; TEMP 97.6
[2017-04-25] MEDS: DUONEB NEB SCH ×2 (05:19→11:19)
[2017-04-25] MEDS: SYNTHROID PO SCH ×2 (05:51→05:52)
[2017-04-25] MEDS: PEPCID PO SCH (05:51)
[2017-04-25] MEDS: HUMULIN R SUBCUT PRN (05:52)
[2017-04-25] MEDS: GLUCOPHAGE PO SCH (09:49)
[2017-04-25] MEDS: KEPPRA PO SCH (09:50)
[2017-04-25] MEDS: LIPITOR PO SCH (09:50)
[2017-04-25] MEDS: ZESTRIL PO SCH (09:50)
[2017-04-25] MEDS: COREG PO SCH (09:50)
[2017-04-25] MEDS: PREDNISONE PO SCH (09:50)
[2017-04-25] MEDS: RISPERDAL PO SCH (09:50)
[2017-04-25] MEDS: JANUVIA PO SCH (09:50)
[2017-04-25] MEDS: OXYCONTIN PO SCH (09:59)
[2017-04-25] MEDS: DRONABINOL 5 MG PO SCH (10:00)
--- NOTE | 2017-05-02 11:38 | PN ---
DATE OF SERVICE: DATE OF SERVICE: 04/23/17 SUBJECTIVE: The patient was being evaluated by the physical therapy and she is walking some. No leg edema. Saturation drops to 80's when the oxygen was taken off. REVIEW OF SYSTEMS: CONSTITUTIONAL: No fever, no chills. HEENT: Normal. ENDOCRINE: No weight gain, no weight loss. CVS: No angina symptoms. No CHF symptoms. No palpitations. No atypical chest pain for CAD. No shortness of breath. No PND, no orthopnea. RESPIRATORY: No cough, no hemoptysis. GI: No nausea, no vomiting. No abdominal pain. Not constipated. : No hematuria. No polyuria. MUSCULOSKELETAL:. No joint swelling. PSYCHIATRIC: Not anxious. No depression. No suicidal thoughts. No homicidal thoughts. SKIN: Intact. No rash. PHYSICAL EXAMINATION: V/S: Blood pressure 117/68, respiratory rate 20, heart 23, temperature 97.1, saturation 94 on 2 Liters. HEENT: Normocephalic, atraumatic. Mucosa dry. Pallor positive. No icterus. NECK: Supple. No JVD, no carotid bruit. No lymphadenopathy. LUNGS: Decreased and clear. No rales or rhonchi. HEART: S1, S2 normal. No S3. No murmur, gallop or regurgitation. ABDOMEN: Soft, nontender. Bowel sounds active. No rigidity. No rebound or guarding. No CVA tenderness. EXTREMITIES: No clubbing, cyanosis or pedal edema. MUSCULOSKELETAL: No joint swelling. NEUROLOGIC: Awake, alert, oriented times three. No focal deficit. LYMPHATIC: No lymph nodes palpable. SKIN: Intact and dry. LABS: Labs from April 21, white count 5.34, hemoglobin 11.9, hematocrit 35.3, platelet count 147, sodium 139, potassium 3.2, chloride 107, bicarb 26, BUN 7, creatinine 0.51. ASSESSMENT: 1. STATUS POST CHRONIC OBSTRUCTIVE PULMONARY DISEASE EXACERBATION SECONDARY TO BRONCHITIS 2. HYPOXEMIA 3. FAILURE TO THRIVE 4. INABILITY TO WALK 5. HISTORY OF BRAIN TUMOR ON RADIATION AND CHEMOTHERAPY 6. DIABETES MELLITUS 7. HYPERTENSION 8. CHRONIC PAIN SYNDROME PLAN: 1. PT/OT consultation with evaluation and treatment. 2. Fall precautions. 3. Continue the DuoNeb's. 4. Accuchecks with coverage. 5. Will follow up with the patient in daily rounds. TIME SPENT: More than 25 minutes today GRIFFIN
--- NOTE | 2017-05-23 13:01 | PN ---
DATE OF SERVICE: 04/19/17 SUBJECTIVE: The patient has occasional headache, less coughing. Oxygen is helping her. Legs are a little bit swollen. She is feeling tired and lazy today. She is moving all four extremities. REVIEW OF SYSTEMS: CONSTITUTIONAL: Tiredness. No fever, no chills. HEENT: Normal. ENDOCRINE: No weight gain, no weight loss. CVS: No angina symptoms. No CHF symptoms. No palpitations. No atypical chest pain for CAD. No shortness of breath. No PND, no orthopnea. RESPIRATORY: Less cough, no hemoptysis. GI: No nausea, no vomiting. No abdominal pain. : No hematuria. No polyuria. MUSCULOSKELETAL:. Legs are swollen. PSYCHIATRIC: Not anxious. No depression. No suicidal thoughts. No homicidal thoughts. SKIN: Intact. No rash. PHYSICAL EXAMINATION: V/S: BP 156/73, respiratory rate 16, heart rate 76, temperature 96.8, saturation 94 on 2L. HEENT: Normocephalic, atraumatic. Mucosa dry. NECK: Supple. No JVD, no carotid bruit. No lymphadenopathy. LUNGS: Bilateral entry equal and decreased. Basilar crackles. HEART: S1, S2 normal. No S3. No murmur, gallop or regurgitation. ABDOMEN: Soft, nontender. Bowel sounds active. No rigidity. No rebound or guarding. No CVA tenderness. EXTREMITIES: 1+ edema. No clubbing or cyanosis. MUSCULOSKELETAL: No joint swelling. NEUROLOGIC: Awake, alert, oriented times three. No focal deficit. LYMPHATIC: No lymph nodes palpable. SKIN: Intact. LABS: White count 4.85, hemoglobin 11.8, hematocrit 34.7, platelet count 173. Sodium 144, potassium 3.9, chloride 100, bicarb 32, BUN 8, creatinine 0.57, glucose 143. ASSESSMENT: 1. COPD, OXYGEN DEPENDENT 2. UTI, ENTEROBACTER CLOACAE 3. DECLINE IN FUNCTION AND MOBILITY AND GAIT DISTURBANCE 4. CAD 5. DYSLIPIDEMIA 6. HYPERTENSION 7. SEIZURE DISORDER 8. OSTEOARTHRITIS 9. DJD SPINE 10. HYPERTENSION 11. DEPRESSION 12. HISTORY OF BRAIN TUMOR 13. STATUS POST CRANIOTOMY PLAN: 1. Continue oxygen, Duonebs, Accu-Cheks, regular insulin coverage. 2. Labs every other day. 3. Physical Therapy/Occupational Therapy. TIME SPENT: More than 35 minutes MTDD
--- NOTE | 2017-05-23 15:16 | DS ---
DATE OF SERVICE: 04/25/17 FINAL DIAGNOSIS: 1. COPD EXACERBATION SECONDARY TO BRONCHITIS 2. UTI, ENTEROBACTER CLOACAE TREATED 3. DECLINE IN FUNCTION, MOBILITY AND GAIT DISTURBANCES 4. COPD, OXYGEN DEPENDENT 5. CORONARY ARTERY DISEASE 6. DYSLIPIDEMIA 7. HYPERTENSION 8. SEIZURE DISORDER - TREATED PROPHYLACTICALLY WITH KEPPRA 9. OSTEOARTHRITIS 10. 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 HYPOTHYROID 12. DEPRESSION 13. NICOTINE USE 14. CHOLECYSTECTOMY 15. HISTORY OF BRAIN TUMOR WITH CRANIOTOMY ON RADIATION THERAPY NOW DISCHARGE INSTRUCTIONS: Discharge patient to [facility] Dr. Wise will follow on [facility] rounds CBC, CMP within one week and every 3 months Accu-Cheks with coverage A1C and lipids every 6 months Keppra levels every 6 months MEDICATIONS AT DISCHARGE: The patient's family will be bringing her Oxycodone from her home Temozolomide chemotherapy medication NEW PRESCRIPTIONS: Prednisone 10 mg twice a day Duonebs twice a day Januvia 25 mg p.o. daily DIET INSTRUCTIONS: Consistent carbs - manager mba please evaluate the patient ACTIVITY: Up to dining table and may participate in [facility] activities. PT/OT evaluate and treat. SMOKING: Counseling for smoking done. DISEASE SPECIFIC EDUCATION: Fall precautions have been discussed. Fall risk discussed. Antibiotic use and risk of diarrhea has been discussed. HOSPITAL COURSE: This is a 71-year-old female with history of oxygen dependent COPD and recurrence of brain tumor for which the patient has been going to radiation therapy. The patient was having cough, congestion, shortness of breath prior to the emergency room. Chest x-ray was negative. ABG showed pc02 43.0, p02 56. At that time, the patient was admitted to the hospital for IV antibiotics and breathing treatments secondary to COPD exacerbation and bronchitis. CT scan of the chest showed sub centimeter nodules in the left upper and right middle lobes. The right-sided pleural effusion and overlying atelectasis or questionable pneumonia was there. She was started on Rocephin, breathing treatments and steroids. After eventual treatment with antibiotics and steroids the patient got better, breathing improving but the patient was still needing help to get around. At that time, the patient was admitted to Transitional Care Unit. PT/OT came and saw the patient. Gradually, was up and about, was able to get in and out of bed by herself, was able to ambulate with walker to the urinal. At that time, the plan was made for nursing home care at the [facility] for which the patient and family were agreeable. Eventually evaluated at [facility]. COPD was in control. Dependent edema was getting better. The patient has oxygen which is helping so will continue oxygen at this time. TIME SPENT: More than 40 minutes today. ERICKD
== END 2017-04-25 13:57 | disposition home or self-care (01) | DRG 202 ==
LOC: MEDSURG A 12:07 → MEDSURG B 04-23 13:54
PROVIDERS: ADMIT Emergency Medicine; ATTEND Emergency Medicine
DX: J20.9 Acute bronchitis, unspecified (principal); J44.0 Chronic obstructive pulmonary disease with (acute) lower respiratory infection; J44.1 Chronic obstructive pulmonary disease with (acute) exacerbation; N39.0 Urinary tract infection, site not specified; B96.89 Other specified bacterial agents as the cause of diseases classified elsewhere; I10 Essential (primary) hypertension; G40.909 Epilepsy, unspecified, not intractable, without status epilepticus; R09.02 Hypoxemia; R62.7 Adult failure to thrive; R26.89 Other abnormalities of gait and mobility; I25.10 Atherosclerotic heart disease of native coronary artery without angina pectoris; E78.5 Hyperlipidemia, unspecified; M19.90 Unspecified osteoarthritis, unspecified site; M47.9 Spondylosis, unspecified; E03.9 Hypothyroidism, unspecified; F32.9 Major depressive disorder, single episode, unspecified; G89.4 Chronic pain syndrome; E87.6 Hypokalemia; D49.6 Neoplasm of unspecified behavior of brain; R51 Headache; R60.0 Localized edema; R26.2 Difficulty in walking, not elsewhere classified; F17.200 Nicotine dependence, unspecified, uncomplicated; Z99.81 Dependence on supplemental oxygen; Z98.890 Other specified postprocedural states; Z79.899 Other long term (current) drug therapy
CPT/HCPCS: 36415; 80053; 82962; 85025; 94640; 97802; 99310; 99316

== ENCOUNTER 2018-04-27 18:30 | Emergency (ER) | payer OTHER ==
[2018-04-27 18:49] VITALS: BMI 30.6
[2018-04-27] MEDS ORDERED: DUONEB NEB STA (19:15)
--- NOTE | 2018-04-27 20:03 | CT ---
EXAM: CT scan of the chest without contrast HISTORY: Dyspnea TECHNIQUE: Helical imaging of the chest was performed without contrast. 5 mm thin axial images and coronal and sagittal reconstructions were provided for interpretation. Comparison 04/12/2017. FINDINGS: The heart is normal size. No mediastinal abnormalities are seen. The lungs are clear. Em physematous changes are seen within the lungs. There is atherosclerotic calcification of the thoracic aorta and coronary arteries. No lytic or blastic lesions are seen within the osseous structures. IMPRESSION: No acute abnormalities are seen within the thorax. Pulmonary Emphysema. Atherosclerotic disease of the thoracic aorta and coronary arteries.
[2018-04-27] MEDS ORDERED: ROCEPHIN 1 GM in SODIUM CHLORIDE 50 ML IV STA (20:07)
[2018-04-27] MEDS ORDERED: SOLU-MEDROL 40 MG IVP STA (20:07)
[2018-04-27] MEDS ORDERED: XOPENEX 0.63 MG NEB STA (20:08)
[2018-04-27] MEDS ORDERED: ROCEPHIN ONE (20:16)
--- NOTE | 2018-04-27 20:16 | ED.PDOC ---
General ED Provider: Dr. SB SANTACRUZ-ER Chief Complaint: Shortness of Air Stated Complaint: this nice lady was on an outing with her family and started having cough and wheezing without chest pain Time Seen by Physician: 18:40 Information Source: Patient, [facility], EMT Exam Limitations: No limitations Primary Care Provider: [facility] Nursing and Triage Documentation Reviewed and Agree: Yes Does patient meet sepsis criteria?: No System Inflammatory Response Syndrome: Not Applicable Sepsis Protocol: For patient's 13 years and over: Temp is 96.8 and below OR 101 and greater Pulse >90 BPM Resp >20/minute Acutely Altered Mental Status Are patient's symptoms suggestive of a new infection, such as: -Pneumonia -Skin, Soft Tissue -Endocarditis -UTI -Bone, Joint Infection -Implantable Device -Acute Abdominal Infection -Wound Infection -Meningitis -Blood Stream Catheter Infection -Unknown Respiratory Complaint Exam - Respiratory Complaint/Exam Onset/Duration: today Symptoms Are: Still present Initial Severity: Mild Current Severity: Mild Location: Chest Character: Reports: Non-productive cough Alleviating: Reports: Spontaneous resolution Associated Signs and Symptoms: Reports: Dyspnea, Wheezing History of Healthcare-Acquired Pneumonia: Lives at residential Pseudomonas Risk Factors: Reports: Chronic Lung Disease Tuberculosis Risk Factors: Reports: Chronic Resp. Faliure Home Oxygen Use: Yes Recent Stress Test: No Recent Echo/LV Function: No Current Antibiotic Use: No Current Asthma Medication Use: Yes Respiratory Distress: Mild Inadequate Respiratory Effort: No Dysphagia Present: No Stridor Present: No JVD Present: No Accessory Muscle Use: No Retractions: Not Present Diminished Breath Sounds: No Sinus Tenderness: None Grunting Respirations: No Kussmaul Respirations: No Differential Diagnoses: COPD Exacerbation, Bronchitis Non-Traumatic Chest Pain Syncope: EKG Performed Review of Systems - Review Of Systems Constitutional: Reports: No symptoms Eyes: Reports: No symptoms Ears, Nose, Mouth, Throat: Reports: No symptoms Respiratory: Reports: Cough, Wheezing Cardiac: Reports: No symptoms GI: Reports: No symptoms : Reports: No symptoms Musculoskeletal: Reports: No symptoms Skin: Reports: No symptoms Neurological: Reports: No symptoms Endocrine: Reports: No symptoms Hematologic/Lymphatic: Reports: No symptoms All Other Systems: Reviewed and Negative Past Medical History - Past Medical History Previously Healthy: Yes Endocrine: Reports: DM 2, Dyslipidemia Cardiovascular: Reports: None Respiratory: Reports: COPD Hematological: Reports: None Gastrointestinal: Reports: None Genitourinary: Reports: None Neuro/Psych: Reports: None Musculoskeletal: Reports: None Cancer: Reports: None, Other (brain) Last Menstrual Period: unknown - Surgical History General Surgical History: Reports: None - Family History Family History: Reports: None - Social History Smoking Status: Current every day smoker, Light tobacco smoker Hx Substance Use: No Alcohol Screening: None Physical Exam - Physical Exam Appearance: Well-appearing, No pain distress, Well-nourished Eyes: MARITZA, EOMI, Conjunctiva clear ENT: Ears normal, Nose normal, Oropharynx normal Neck: Supple Respiratory: Wheezes Cardiovascular: RRR GI/: Soft, Nontender, No masses, Bowel sounds normal, No Organomegaly Musculoskeletal: Normal strength, ROM intact, No edema, No calf tenderness Skin: Warm, Dry, Normal color Neurological: Sensation intact, Motor intact, Reflexes intact, Cranial nerves intact, Alert, Oriented Psychiatric: Affect appropriate, Mood appropriate, Anxious Interpretation - Radiology Interpretation Radiology Interpretation By: Radiologist Radiology Results: Negative Exam Interpreted: CT Scan - EKG Interpretation Time of EKG #1: 20:18 Rate: Normal Rhythm: Sinus Ectopy: None [place]: NL ST Segment: Normal Interpretation: nsr Re-Evaluation - Re-Evaluation Time of Re-Evaluation: 20:19 Status: Improved Vital Signs Stable: Yes Pain Level: 0 Appearance: NAD Lungs: Clear Skin: Warm and Dry Neuro: Alert and Oriented X3 CV: RRR Critical Care Note - Critical Care Note Total Time (mins): 0 Course - Course Hematology/Chemistry: 04/27/18 18:49 04/27/18 18:49 Orders, Labs, Meds: Lab Review 04/27/18 04/27/18 04/27/18 18:37 18:49 18:49 WBC 6.31 RBC 3.72 L Hgb 12.1 Hct 36.4 L MCV 97.8 MCH 32.5 H MCHC 33.2 RDW Coeff of Amanda 13.2 Plt Count 144 Immature Gran % (Auto) 1.6 Neut % (Auto) 53.5 Lymph % (Auto) 36.1 [place] % (Auto) 7.0 Eos % (Auto) 1.0 Baso % (Auto) 0.8 Immature Gran # (Auto) 0.1 Neut # (Auto) 3.4 Lymph # (Auto) 2.3 [place] # (Auto) 0.4 Eos # (Auto) 0.1 Baso # (Auto) 0.1 Puncture Site Rrad O2 Saturation 98.0 ABG pH 7.611 H* ABG pCO2 32.9 L ABG pO2 88.0 ABG HCO3 33.2 H ABG Total CO2 34 H ABG Base Excess 12 H Param Test + FiO2 % 21.0 Sodium 139.6 Potassium 3.73 Chloride 100.8 Carbon Dioxide 33.4 H Anion Gap 9.13 BUN 12.4 Creatinine 0.60 Estimated GFR (MDRD) 99.00 BUN/Creatinine Ratio 20.66 Glucose 148.5 H Calcium 9.20 Total Bilirubin 0.35 AST 27.2 ALT 18.3 Alkaline Phosphatase 83.7 NT-Pro-B Natriuret Pep Total Protein 6.65 Albumin 3.54 Globulin 3.11 Albumin/Globulin Ratio 1.13 04/27/18 18:49 WBC RBC Hgb Hct MCV MCH MCHC RDW Coeff of Amanda Plt Count Immature Gran % (Auto) Neut % (Auto) Lymph % (Auto) [place] % (Auto) Eos % (Auto) Baso % (Auto) Immature Gran # (Auto) Neut # (Auto) Lymph # (Auto) [place] # (Auto) Eos # (Auto) Baso # (Auto) Puncture Site O2 Saturation ABG pH ABG pCO2 ABG pO2 ABG HCO3 ABG Total CO2 ABG Base Excess Param Test FiO2 % Sodium Potassium Chloride Carbon Dioxide Anion Gap BUN Creatinine Estimated GFR (MDRD) BUN/Creatinine Ratio Glucose Calcium Total Bilirubin AST ALT Alkaline Phosphatase NT-Pro-B Natriuret Pep 145.000 H Total Protein Albumin Globulin Albumin/Globulin Ratio Orders Category Date Time Status ABG DRAW REQUEST Stat CARDIO 04/27/18 18:37 Completed EKG-(ED ONLY) Stat CARDIO 04/27/18 18:37 Completed NEBULIZER TREATMENT Stat CARDIO 04/27/18 19:15 Completed NEBULIZER TREATMENT Stat CARDIO 04/27/18 20:08 Ordered Reducing System Operator [ED DUDE RANCH MANAGER APPLIED] .ONCE EMERGENCY 04/27/18 18:38 Active IV [ED IV/MEDIPORT/POWERPORT] .ONCE EMERGENCY 04/27/18 18:39 Active ABG Stat LAB 04/27/18 18:37 Completed BLOOD CULTURE (ED ONLY) Stat LAB 04/27/18 18:49 Received CBC W/ AUTO DIFF Stat LAB 04/27/18 18:49 Completed COMPREHENSIVE METABOLIC PANEL Stat LAB 04/27/18 18:49 Completed PRO-BNP [NT-PROBNP] Stat LAB 04/27/18 18:49 Completed 0.9 % Sodium Chloride [Saline Flush] MEDS 04/27/18 18:39 Ordered 1 syr IVF PRN PRN Ceftriaxone Sodium [Rocephin] 1 gm MEDS 04/27/18 20:07 Active 0.9 % Sodium Chloride [Sodium Chloride] 50 ml IV ONCE Ipratropium/Albuterol Neb [Duoneb] MEDS 04/27/18 19:15 Discontinued 1 vial NEB ONCE STA Levalbuterol HCl [Xopenex 0.63 mg] MEDS 04/27/18 20:08 Discontinued 1 vial NEB ONCE STA Methylprednisolone Sod Succ/Pf [Solu-Medrol 40 mg] MEDS 04/27/18 20:07 Discontinued 40 [address] IVP ONCE STA CT CHEST W/O CONTRAST Stat RADS 04/27/18 18:38 Completed Medications Generic Name Dose Route Start Last Admin Trade Name Freq PRN Reason Stop Dose Admin Ceftriaxone Sodium 1 gm/ 50 mls @ 75 mls/hr 04/27/18 20:07 Sodium Chloride IV 04/27/18 20:46 ONCE STA Sodium Chloride 1 syr 04/27/18 18:39 Saline Flush IVF PRN PRN To flush IV Discontinued Medications Generic Name Dose Route Start Last Admin Trade Name Freq PRN Reason Stop Dose Admin Albuterol/Ipratropium 1 vial 04/27/18 19:15 04/27/18 19:25 Duoneb NEB 04/27/18 19:16 1 vial ONCE STA Administration Levalbuterol HCl 1 vial 04/27/18 20:08 Xopenex 0.63 Mg NEB 04/27/18 20:09 ONCE STA Methylprednisolone Sodium Succinate 40 mg 04/27/18 20:07 Solu-Medrol 40 Mg IVP 04/27/18 20:08 ONCE STA Vital Signs: Temp Pulse Resp BP Pulse Ox 04/27/18 19:10 99.4 F 04/27/18 18:36 97.5 F L 73 22 154/85 H 95 Departure - Departure Time of Disposition: 20:19 Disposition: TRANSFER SNF Discharge Problem: COPD (chronic obstructive pulmonary disease) Qualifiers: COPD type: COPD with acute exacerbation Qualified Code(s): J44.1 - Chronic obstructive pulmonary disease with (acute) exacerbation Instructions: COPD (Chronic Obstructive Pulmonary Disease) (ED) Condition: Good Pt referred to PMD for follow-up: Yes IPMP verified?: No Additional Instructions: use nebs qid--prednisone 20mg x 3 days then 10mg x 3 days---keflex 500mg bid x 7 days Allergies/Adverse Reactions: Allergies No Known Allergies Allergy (Verified 04/12/17 14:17) Home Medications: Ambulatory Orders Pramipexole Di-HCl [Pramipexole Er] 0.25 mg PO BEDTIME 01/15/17 Levothyroxine Sodium [Synthroid] 200 mcg PO DAILY 04/12/17 Levetiracetam [Keppra] 500 mg PO BID 04/17/17 Prednisone 10 mg PO BID #7 tablet 04/25/17 Acetaminophen [Tylenol] 325 mg PO Q4H PRN 04/27/18 Duloxetine HCl [Cymbalta] 60 mg PO BEDTIME 04/27/18 Ferrous Sulfate [Feosol] 325 mg PO BID 04/27/18 Furosemide [Lasix] 20 mg PO DAILY 04/27/18 Insulin Glargine,Hum.rec.anlog [Basaglar Kwikpen U-100] 14 unit SQ BEDTIME 04/27 Insulin Regular, Human [Novolin R] 100 unit IJ AC 04/27/18 Ipratropium/Albuterol Neb [Duoneb] 1 vial NEB BEDTIME 04/27/18 Levothyroxine Sodium 25 mcg PO DAILY 04/27/18 Multivitamin with Minerals [Multiple Vitamin] 1 each PO DAILY 04/27/18 Ondansetron HCl [Zofran] 4 mg PO Q6HR PRN 04/27/18 Risperidone [Risperdal] 0.5 mg PO DAILY 04/27/18 Sitagliptin Phosphate [Januvia] 50 mg PO DAILY 04/27/18 Sulfamethoxazole/Trimethoprim [Bactrim Ds 800/160 mg] 1 tab PO DAILY 04/27/18 Disposition Discussed With: Patient, Family
[2018-04-27 20:45] VITALS: BP 143/57; TEMP 97.6
== END 2018-04-27 20:53 ==
LOC: ED 18:30
DX: J44.1 Chronic obstructive pulmonary disease with (acute) exacerbation (principal); R06.02 Shortness of breath; F17.210 Nicotine dependence, cigarettes, uncomplicated; E11.9 Type 2 diabetes mellitus without complications; E78.5 Hyperlipidemia, unspecified; Z79.899 Other long term (current) drug therapy; R53.1 Weakness; F03.90 Unspecified dementia, unspecified severity, without behavioral disturbance, psychotic disturbance, mood disturbance, and anxiety; R60.0 Localized edema
CPT/HCPCS: 36415; 80053; 82803; 83880; 85025; 87040; 93005; 93010; 94640; 96365; 96375; 99284

== ENCOUNTER 2018-05-17 11:29 | Inpatient (IN) ==
[2018-05-17] MEDS ORDERED: ZOSYN 3.375 GM 3.375 GM in SODIUM CHLORIDE 50 ML IV STA (11:38)
[2018-05-17] MEDS ORDERED: SODIUM CHLORIDE 1,000 ML IV STA (11:50)
--- NOTE | 2018-05-17 12:14 | CT ---
EXAM: CT scan of the chest without contrast HISTORY: Fever, cough TECHNIQUE: Helical imaging of the chest was performed without contrast. 5 mm thin axial images and coronal and sagittal reconstructions were provided for interpretation. FINDINGS: The heart is normal size. No mediastinal abnormalities are seen. Lungs are clear. Mild e mphysematous changes are seen within the lungs. There is atherosclerotic calcification of the thorac ic aorta and coronary arteries. There has been previous cholecystectomy. No lytic or blastic lesions are seen within the osseous structures. IMPRESSION: No definite infiltrates are seen within the lungs. Pulmonary emphysema. Atherosclerotic disease of the thoracic aorta and coronary arteries.
--- NOTE | 2018-05-17 12:17 | CT ---
EXAM: CT scan of the abdomen and pelvis without contrast HISTORY: Fever TECHNIQUE: Helical imaging of the abdomen pelvis was performed without contrast. 3 mm thin axial im ages and coronal and sagittal reconstructions were provided for interpretation. FINDINGS: The liver, spleen, pancreas, adrenal glands and kidneys appear normal. The proximal urete rs are normal size. The small and large bowel loops are normal caliber. There is no free air. Ther e is no bowel wall thickening. The appendix was not seen. No definite inflammatory changes are seen in the right lower quadrant. There is a small umbilical hernia containing omental fat. The helical images obtained through the pelvis demonstrate a normal appearance of the rectum, urinary bladder. There has been previous hysterectomy. There is no free fluid seen within the pelvis. Lung bases are clear. No lytic or blastic lesions are seen within the osseous structures. IMPRESSION: There is no bowel obstruction or acute inflammatory change seen within the abdomen and p shun. There is no ureteral obstruction. Previous hysterectomy.
--- NOTE | 2018-05-17 12:55 | ED.PDOC ---
General ED Provider: Dr. SB SANTACRUZ-ER Chief Complaint: Fever Stated Complaint: she has been not eating, coughing aNd fever--bp of 70 upon arrival Time Seen by Physician: 11:40 Mode of Arrival: Stretcher Information Source: Patient Exam Limitations: No limitations Primary Care Provider: JR CRONIN Nursing and Triage Documentation Reviewed and Agree: Yes Does patient meet sepsis criteria?: No System Inflammatory Response Syndrome: Not Applicable Sepsis Protocol: For patient's 13 years and over: Temp is 96.8 and below OR 101 and greater Pulse >90 BPM Resp >20/minute Acutely Altered Mental Status Are patient's symptoms suggestive of a new infection, such as: -Pneumonia -Skin, Soft Tissue -Endocarditis -UTI -Bone, Joint Infection -Implantable Device -Acute Abdominal Infection -Wound Infection -Meningitis -Blood Stream Catheter Infection -Unknown Respiratory Complaint Exam - Respiratory Complaint/Exam Onset/Duration: several days Symptoms Are: Still present Timing: Intermittent Initial Severity: Mild Current Severity: Mild Location: Chest Character: Reports: Non-productive cough Aggravating: Reports: URI Alleviating: Denies: Nasal suction Associated Signs and Symptoms: Reports: Dyspnea, Fever, URI, Nasal congestion, Sore throat. Denies: Rapid breathing, Chills History of Healthcare-Acquired Pneumonia: Lives at [facility] Home Oxygen Use: Yes Recent Stress Test: No Recent Echo/LV Function: No Current Antibiotic Use: No Current Asthma Medication Use: No Respiratory Distress: None Inadequate Respiratory Effort: No Dysphagia Present: No Stridor Present: No JVD Present: No Accessory Muscle Use: No Retractions: Not Present Diminished Breath Sounds: No Sinus Tenderness: None Differential Diagnoses: COPD Exacerbation, Pneumonia, Bronchitis Review of Systems - Review Of Systems Constitutional: Reports: Chills, Fever, Weakness Eyes: Reports: No symptoms Ears, Nose, Mouth, Throat: Reports: No symptoms Respiratory: Reports: Cough Cardiac: Reports: No symptoms GI: Reports: No symptoms : Reports: No symptoms Musculoskeletal: Reports: No symptoms Skin: Reports: No symptoms Neurological: Reports: No symptoms Endocrine: Reports: No symptoms Hematologic/Lymphatic: Reports: No symptoms All Other Systems: Reviewed and Negative Past Medical History - Past Medical History Previously Healthy: Yes Endocrine: Reports: DM 2, Dyslipidemia Cardiovascular: Reports: None Respiratory: Reports: COPD Hematological: Reports: None Gastrointestinal: Reports: None Genitourinary: Reports: None Neuro/Psych: Reports: None Musculoskeletal: Reports: None Cancer: Reports: None, Other (brain) Last Menstrual Period: unknown - Surgical History General Surgical History: Reports: None - Family History Family History: Reports: None - Social History Smoking Status: Current every day smoker, Light tobacco smoker Hx Substance Use: No Alcohol Screening: None Physical Exam - Physical Exam Appearance: Well-appearing, No pain distress, Well-nourished Eyes: MARITZA ENT: Ears normal, Nose normal, Oropharynx normal Neck: Supple Respiratory: Airway patent, Breath sounds equal, Respirations nonlabored, Rhonchi Cardiovascular: RRR, Pulses normal, No rub, No murmur GI/: Soft, Nontender, No masses, Bowel sounds normal, No Organomegaly Musculoskeletal: Normal strength, ROM intact, No edema, No calf tenderness Skin: Warm, Dry, Normal color Neurological: Sensation intact, Motor intact, Reflexes intact, Cranial nerves intact, Alert, Oriented Psychiatric: Affect appropriate, Mood appropriate Interpretation - Radiology Interpretation Radiology Interpretation By: Radiologist Radiology Results: Negative Exam Interpreted: CT Scan - EKG Interpretation Time of EKG #1: 12:56 Rate: Normal Rhythm: Sinus Ectopy: None [place]: NL ST Segment: Normal Interpretation: nsr Physician Notification - Case Discussed Physician Notified: dr nash Time of Notification: 12:56 Critical Care Note - Critical Care Note Total Time (mins): 0 Course - Course Hematology/Chemistry: 05/17/18 12:05 05/17/18 12:05 Orders, Labs, Meds: Lab Review 05/17/18 05/17/18 05/17/18 11:36 12:02 12:05 WBC 9.55 RBC 3.73 L Hgb 12.3 Hct 36.7 L MCV 98.4 MCH 33.0 H MCHC 33.5 RDW Coeff of Amanda 13.7 Plt Count 138 L Immature Gran % (Auto) 1.6 Neut % (Auto) 83.1 Lymph % (Auto) 5.5 L [place] % (Auto) 8.9 Eos % (Auto) 0.3 Baso % (Auto) 0.6 Immature Gran # (Auto) 0.2 Neut # (Auto) 7.9 H Lymph # (Auto) 0.5 L [place] # (Auto) 0.9 Eos # (Auto) 0.0 Baso # (Auto) 0.1 Puncture Site R radial O2 Saturation 93.0 L ABG pH 7.468 H ABG pCO2 37.9 ABG pO2 63.0 L ABG HCO3 27.5 H ABG Total CO2 29 H ABG Base Excess 4 H Param Test + FiO2 % 21.0 Sodium Potassium Chloride Carbon Dioxide Anion Gap BUN Creatinine Estimated GFR (MDRD) BUN/Creatinine Ratio Glucose Lactic Acid Calcium Total Bilirubin AST ALT Alkaline Phosphatase Total Protein Albumin Globulin Albumin/Globulin Ratio Procalcitonin Influ A Molecular Assay Negative by naat Influ B Molecular Assay Negative by naat 05/17/18 05/17/18 05/17/18 12:05 12:05 12:05 WBC RBC Hgb Hct MCV MCH MCHC RDW Coeff of Amanda Plt Count Immature Gran % (Auto) Neut % (Auto) Lymph % (Auto) [place] % (Auto) Eos % (Auto) Baso % (Auto) Immature Gran # (Auto) Neut # (Auto) Lymph # (Auto) [place] # (Auto) Eos # (Auto) Baso # (Auto) Puncture Site O2 Saturation ABG pH ABG pCO2 ABG pO2 ABG HCO3 ABG Total CO2 ABG Base Excess Param Test FiO2 % Sodium 134.3 L Potassium 3.90 Chloride 98.4 Carbon Dioxide 27.9 Anion Gap 11.90 BUN 18.3 H Creatinine 1.14 Estimated GFR (MDRD) 47.00 BUN/Creatinine Ratio 16.05 Glucose 272.1 H Lactic Acid 2.21 H Calcium 9.06 Total Bilirubin 0.63 AST 22.0 ALT 19.4 Alkaline Phosphatase 77.6 Total Protein 6.14 L Albumin 3.46 L Globulin 2.68 Albumin/Globulin Ratio 1.29 Procalcitonin 4.30 Influ A Molecular Assay Influ B Molecular Assay Orders Category Date Time Status ABG DRAW REQUEST Stat CARDIO 05/17/18 11:37 Completed EKG-(ED ONLY) Stat CARDIO 05/17/18 11:36 Completed Imaging Assistant [ED SLIP INJECTOR AND APPLICATOR APPLIED] .ONCE EMERGENCY 05/17/18 11:38 Active IV [ED IV/MEDIPORT/POWERPORT] .ONCE EMERGENCY 05/17/18 11:37 Active ABG Stat LAB 05/17/18 11:36 Completed BLOOD CULTURE (ED ONLY) Stat LAB 05/17/18 12:05 Received CBC W/ AUTO DIFF Stat LAB 05/17/18 12:05 Completed COMPREHENSIVE METABOLIC PANEL Stat LAB 05/17/18 12:05 Completed FLU A/B MOLECULAR Stat LAB 05/17/18 12:02 Completed LACTIC ACID Stat LAB 05/17/18 12:05 Completed PROCALCITONIN Stat LAB 05/17/18 12:05 Completed 0.9 % Sodium Chloride [Saline Flush] MEDS 05/17/18 11:37 Ordered 1 syr IVF PRN PRN Piperacillin Sodium/Tazobactam [Zosyn 3.375 gm] 3.375 MEDS 05/17/18 11:38 Discontinued gm 0.9 % Sodium Chloride [Sodium Chloride] 50 ml IV ONCE Sodium Chloride 0.9% [Sodium Chloride] 1,000 ml MEDS 05/17/18 11:[address] ABDOMEN/PELVIS WO CONTRAST Stat RADS 05/17/18 11:[address] CHEST W/O CONTRAST Stat RADS 05/17/18 11:38 Completed Medications Generic Name Dose Route Start Last Admin Trade Name Freq PRN Reason Stop Dose Admin Sodium Chloride 1 syr 05/17/18 11:37 Saline Flush IVF PRN PRN To flush IV Discontinued Medications Generic Name Dose Route Start Last Admin Trade Name Freq PRN Reason Stop Dose Admin Piperacillin Sod/Tazobactam 50 mls @ 50 mls/hr 05/17/18 11:38 Sod 3.375 gm/ Sodium Chloride IV 05/17/18 12:37 ONCE STA Sodium Chloride 1,000 mls @ 1,000 mls/hr 05/17/18 11:50 05/17/18 12:26 Sodium Chloride IV 05/17/18 12:49 1,000 mls/hr BOLUS STA Administration Vital Signs: Temp Pulse Resp BP Pulse Ox 05/17/18 11:37 97.8 F 88 22 78/44 L 90 L Departure - Departure Time of Disposition: 12:56 Disposition: ADMITTED INPATIENT Discharge Problem: COPD exacerbation, Dehydration Instructions: COPD (Chronic Obstructive Pulmonary Disease) (ED) Condition: Stable Pt referred to PMD for follow-up: Yes IPMP verified?: No Allergies/Adverse Reactions: Allergies No Known Allergies Allergy (Verified 04/12/17 14:17) Home Medications: Ambulatory Orders Pramipexole Di-HCl [Pramipexole Er] 0.25 mg PO BEDTIME 01/15/17 Levothyroxine Sodium [Synthroid] 200 mcg PO DAILY 04/12/17 Levetiracetam [Keppra] 500 mg PO BID 04/17/17 Prednisone 10 mg PO BID #7 tablet 04/25/17 Acetaminophen [Tylenol] 325 mg PO Q4H PRN 04/27/18 Duloxetine HCl [Cymbalta] 60 mg PO BEDTIME 04/27/18 Ferrous Sulfate [Feosol] 325 mg PO BID 04/27/18 Furosemide [Lasix] 20 mg PO DAILY 04/27/18 Insulin Glargine,Hum.rec.anlog [Basaglar Kwikpen U-100] 14 unit SQ BEDTIME 04/27 Insulin Regular, Human [Novolin R] 100 unit IJ AC 04/27/18 Ipratropium/Albuterol Neb [Duoneb] 1 vial NEB BEDTIME 04/27/18 Levothyroxine Sodium 25 mcg PO DAILY 04/27/18 Multivitamin with Minerals [Multiple Vitamin] 1 each PO DAILY 04/27/18 Ondansetron HCl [Zofran] 4 mg PO Q6HR PRN 04/27/18 Risperidone [Risperdal] 0.5 mg PO DAILY 04/27/18 Sitagliptin Phosphate [Januvia] 50 mg PO DAILY 04/27/18 Sulfamethoxazole/Trimethoprim [Bactrim Ds 800/160 mg] 1 tab PO DAILY 04/27/18 Disposition Discussed With: Patient
[2018-05-17] MEDS ORDERED: TYLENOL PO PRN (12:58)
[2018-05-17] MEDS ORDERED: DUONEB NEB PRN (12:59)
[2018-05-17] MEDS ORDERED: ZOFRAN TAB PO PRN (12:59)
[2018-05-17 14:15] VITALS: BMI 31.3
[2018-05-17] MEDS: ZOSYN 3.375 GM 3.375 GM in SODIUM CHLORIDE 50 ML IV SCH ×2 (15:09→17:22)
[2018-05-17] MEDS: SODIUM CHLORIDE 1,000 ML IV SCH ×2 (15:09→19:13)
[2018-05-17] MEDS: HUMULIN R SUBCUT PRN ×2 (17:23→20:14)
[2018-05-17] MEDS ORDERED: CYMBALTA ONE (19:47)
[2018-05-17] MEDS ORDERED: FERROUS SULFATE ONE (19:47)
[2018-05-17] MEDS ORDERED: OXYCONTIN ONE (19:48)
[2018-05-17] MEDS ORDERED: LANTUS SUBCUT ONE (19:54)
[2018-05-17] MEDS ORDERED: TORADOL ONE (19:55)
[2018-05-17] MEDS ORDERED: TORADOL IVP PRN (20:06)
[2018-05-17] MEDS: KEPPRA PO SCH (20:12)
[2018-05-17] MEDS ORDERED: GLUCOPHAGE PO SCH (21:00)
[2018-05-17] MEDS ORDERED: PRAMIPEXOLE DI HCL 0.25 MG PO SCH (21:00)
[2018-05-17] MEDS ORDERED: PREDNISONE PO SCH (21:00)
[2018-05-17] MEDS ORDERED: DRONABINOL 5 MG PO SCH (21:00)
[2018-05-17] MEDS ORDERED: NON-FORMULARY MEDICATION (Ferrous Sulfate [Feosol] 325 MG) PO SCH (21:00)
[2018-05-17] MEDS ORDERED: INSULIN GLARGINE HUM REC ANLOG 14 UNIT SQ SCH (21:00)
[2018-05-17] MEDS ORDERED: OXYCONTIN PO SCH (21:00)
[2018-05-17] MEDS ORDERED: [UNRECOGNIZED DRUG - OTHER] SQ SCH (21:00)
[2018-05-17] MEDS ORDERED: NON-FORMULARY MEDICATION (Duloxetine Hcl [Cymbalta] 60 MG) PO SCH (21:00)
[2018-05-18] MEDS: ZOSYN 3.375 GM 3.375 GM in SODIUM CHLORIDE 50 ML IV SCH ×5 (00:49→23:08)
[2018-05-18] MEDS: PEPCID PO SCH (06:14)
[2018-05-18] MEDS: HUMULIN R SUBCUT PRN ×4 (06:14→21:07)
[2018-05-18] MEDS: DUONEB NEB SCH ×2 (07:20→20:58)
[2018-05-18] MEDS: LOVENOX SUBCUT SCH (08:29)
[2018-05-18] MEDS: RISPERDAL PO SCH (08:30)
[2018-05-18] MEDS: LIPITOR PO SCH (08:30)
[2018-05-18] MEDS: KEPPRA PO SCH ×2 (08:31→21:05)
[2018-05-18] MEDS: SYNTHROID PO SCH ×2 (08:31→08:33)
[2018-05-18] MEDS: JANUVIA PO SCH (08:31)
[2018-05-18] MEDS: FERROUS SULFATE PO SCH ×2 (08:31→21:05)
[2018-05-18] MEDS: GLUCOPHAGE PO SCH ×2 (08:32→17:54)
[2018-05-18] MEDS: OXYCONTIN PO SCH ×2 (08:32→21:06)
[2018-05-18] MEDS: PREDNISONE PO SCH ×2 (08:32→17:53)
[2018-05-18] MEDS: DRONABINOL 5 MG PO SCH ×2 (08:34→21:06)
[2018-05-18] MEDS ORDERED: NON-FORMULARY MEDICATION (Atorvastatin Calcium [Atorvastatin Calcium] 40 MG) PO SCH (09:00)
[2018-05-18] MEDS ORDERED: NON-FORMULARY MEDICATION (Levothyroxine Sodium [Synthroid] 200 MCG) PO SCH (09:00)
[2018-05-18] MEDS ORDERED: NON-FORMULARY MEDICATION (Risperidone [Risperdal] 0.5 MG) PO SCH (09:00)
[2018-05-18] MEDS ORDERED: NICODERM 14 MG TD SCH (10:00)
[2018-05-18] MEDS: SODIUM CHLORIDE 1,000 ML IV SCH (11:02)
[2018-05-18] MEDS: CYMBALTA PO SCH (21:05)
[2018-05-18] MEDS: PRAMIPEXOLE DI HCL 0.25 MG PO SCH (21:07)
[2018-05-18] MEDS: LANTUS SUBCUT SCH (21:09)
[2018-05-19] MEDS: SODIUM CHLORIDE 1,000 ML IV SCH ×2 (03:54→09:15)
[2018-05-19] MEDS: PEPCID PO SCH (05:34)
[2018-05-19] MEDS: SYNTHROID PO SCH ×2 (05:34→05:35)
[2018-05-19] MEDS: ZOSYN 3.375 GM 3.375 GM in SODIUM CHLORIDE 50 ML IV SCH ×3 (05:34→17:17)
[2018-05-19] MEDS: HUMULIN R SUBCUT PRN ×3 (05:59→20:26)
[2018-05-19] MEDS: DRONABINOL 5 MG PO SCH ×2 (09:15→20:23)
[2018-05-19] MEDS: KEPPRA PO SCH ×2 (09:22→20:21)
[2018-05-19] MEDS: JANUVIA PO SCH (09:23)
[2018-05-19] MEDS: PREDNISONE PO SCH ×2 (09:23→17:17)
[2018-05-19] MEDS: GLUCOPHAGE PO SCH ×2 (09:23→17:17)
[2018-05-19] MEDS: RISPERDAL PO SCH (09:23)
[2018-05-19] MEDS: OXYCONTIN PO SCH ×2 (09:23→20:22)
[2018-05-19] MEDS: FERROUS SULFATE PO SCH ×2 (09:23→20:22)
[2018-05-19] MEDS: LIPITOR PO SCH (09:24)
[2018-05-19] MEDS: LOVENOX SUBCUT SCH (09:24)
[2018-05-19] MEDS ORDERED: DUONEB NEB STA (09:29)
--- NOTE | 2018-05-19 11:49 | PCM.PROG ---
Attending Provider: ATTENDING PROVIDER: Dr. ANNABELLE PENALOZA This patient is seen with Nina Dixon, Nurse Practitioner. DATE OF SERVICE: 05/19/18 SUBJECTIVE: This 72 year old WHITE/ F was hospitalized 05/17/18. The patient is lying in bed, resting comfortably. No shortness of breath, wearing 02. Urine positive for ESBL, sensitive to Rocephin. She has been eating well. REVIEW OF SYSTEMS: CONSTITUTIONAL: No night sweats. No fatigue, malaise, lethargy. No fever or chills. HEENT: Eyes: No visual changes. No eye pain. No eye discharge. ENT: No runny nose. No epistaxis. No sinus pain. No odynophagia. No congestion. RESPIRATORY: Cough. No congestion. No hemoptysis. No shortness of breath. CARDIOVASCULAR: No angina symptoms. No CHF symptoms. No atypical chest pain for CAD. No palpitations. No orthopnea.. GASTROINTESTINAL: No abdominal pain. No nausea or vomiting. No diarrhea or constipation. No hematemesis. No hematochezia. GENITOURINARY: No urgency. No frequency. No dysuria. No hematuria. No obstructive symptoms. No discharge. No pain. No significant abnormal bleeding. MUSCULOSKELETAL: No musculoskeletal pain; no joint swelling. NEUROLOGICAL: Awake, confused. No headache. No neck pain. No syncope. No seizures. No dizziness. PSYCHIATRIC: Not anxious. No depression. No suicidal thoughts. No homicidal thoughts. SKIN: No rash. No lesions. No wounds. ENDOCRINE: No unexplained weight loss. No weight gain. HEMATOLOGIC/LYMPHATIC: No anemia. No purpura. No petechiae. No prolonged or excessive bleeding. No palpable lymph nodes. PHYSICAL EXAMINATION: GENERAL: The patient is awake, confused, lying in bed in no distress. VITAL SIGNS: Temperature 98.0 F, Pulse 60, Respiratory Rate 20, BP 151/71, Pulse Ox 99% HEENT: Head normocephalic, atraumatic. Eyes: Extraocular muscles are intact. Pupils are equal, round and reactive to light and accommodation. Ears: No lesions. Nose appeared normal. Throat: No exudate or erythema. NECK: Supple. No JVD, no carotid bruit. No lymphadenopathy or thyromegaly. LUNGS: Diminished breath sounds bilaterally. Clear to auscultation. Percussion note normal. Chest symmetrical. HEART: S1, S2, no S3. No murmurs. No cyanosis or clubbing. No ascites. Pulses: Dorsalis pedis and posterior tibial pulses +1 to +2 both sides. ABDOMEN: Soft. Non-tender. Bowel sounds active. No CVA tenderness. No mass felt. EXTREMITIES: Trace bilateral lower extremity edema. Full range of motion of all extremities, equal. NEUROLOGIC: No focal deficit. Cranial nerves II through XII are grossly intact. No headache, no double vision or headache. SKIN: Not dry. Intact. Turgor-normal. LYMPHATIC: No palpable lymph nodes/no lymphedema. MUSCULOSKELETAL: Normal joints with no swelling. Muscle tone is normal. LAB REVIEW: 05/19/18 04:40 05/19/18 04:40 05/19/18 04:40: Sodium 137.9, Potassium 4.24, Chloride 104.4, Carbon Dioxide 30.7 H, Anion Gap 7.04, BUN 12.8, Creatinine 0.55 L, Estimated GFR (MDRD) 109.00 , BUN/Creatinine Ratio 23.27, Glucose 270.0 H, Calcium 9.05, Total Bilirubin 0.40, AST 17.6, ALT 19.3, Alkaline Phosphatase 71.2, Total Protein 5.74 L, Albumin 3.00 L, Globulin 2.74, Albumin/Globulin Ratio 1.09 05/19/18 04:40: WBC 7.70, RBC 3.17 L, Hgb 10.5 L, Hct 31.5 L, MCV 99.4 H, MCH 33.1 H, MCHC 33.3, RDW Coeff of Amanda 13.2, Plt Count 121 L, Immature Gran % (Auto ) 1.2, Neut % (Auto) 79.9, Lymph % (Auto) 9.0 L, [place] % (Auto) 9.2, Eos % (Auto ) 0.4, Baso % (Auto) 0.3, Immature Gran # (Auto) 0.1, Neut # (Auto) 6.2, Lymph # (Auto) 0.7, [place] # (Auto) 0.7, Eos # (Auto) 0.0, Baso # (Auto) 0.0 ASSESSMENT: 1. UTI, POSITIVE FOR E. COLI 2. ACUTE BRONCHITIS 3. COPD EXACERBATION 4. DEMENTIA WITH BEHAVIORAL DISTURBANCES 5. HYPERTENSION 6. DIABETES MELLITUS TYPE 2 PLAN: 1. NEBS t.i.d. AELKS 2. T4, TSH 3. D/C IV fluids Plan and coordination of the patient's care discussed in the presence of Assistant Professor Of Life Sciences and nurse. CONDITION: Stable SCRIBED BY: DAV BAE Header Set Up Operator scribed while in presence of service performed by Dr. Penaloza/Nina Dixon APRN on 05/19/18 ([id number])
[2018-05-19] MEDS: DUONEB NEB SCH ×2 (14:10→20:35)
--- NOTE | 2018-05-19 15:03 | PN ---
DATE OF SERVICE: 05/17/18 SUBJECTIVE: Ms. [place] was hospitalized through the emergency room after being examined by the ER attending, Dr. Soria. The patient has acute bronchitis with fever with cough and congestion. Chest x-ray does not show any pneumonia, but the patient is dehydrated. PLAN: The patient will be given IV fluids, steroids, antibiotics. The condition is stable for now. She has some back problems and back pain, lower back pain. TIME SPENT: More than 30 minutes. Plan and coordination of the patient's care discussed in the presence of nurse. GRIFFIN
--- NOTE | 2018-05-19 15:14 | PN ---
DATE OF SERVICE: 05/18/18 SUBJECTIVE: 72 year old white female was hospitalized with dehydration, COPD exacerbation. The patient had a bowel movement this morning. She is a smoker who wants a Nicotine patch. REVIEW OF SYSTEMS: CONSTITUTIONAL: No night sweats. No fatigue, malaise, lethargy. No fever or chills. HEENT: Eyes: No visual changes. No eye pain. No eye discharge. ENT: No runny nose. No epistaxis. No sinus pain. No sore throat. No odynophagia. No congestion. RESPIRATORY: Mild cough, no congestion. No pleuritic pain. No hemoptysis. No shortness of breath. CARDIOVASCULAR: No angina symptoms. No CHF symptoms. No atypical chest pain for CAD. No palpitations. No orthopnea. GASTROINTESTINAL: No abdominal pain. No nausea or vomiting. No diarrhea or constipation. No hematemesis. No hematochezia. GENITOURINARY: No urgency. No frequency. No dysuria. No hematuria. No obstructive symptoms. No discharge. No pain. No significant abnormal bleeding. MUSCULOSKELETAL: No musculoskeletal pain; no joint swelling. NEUROLOGICAL: No headache. No neck pain. No syncope. No seizures. No dizziness. PSYCHIATRIC: Not anxious. No depression. No suicidal thoughts. No homicidal thoughts. SKIN: No rash. No lesions. No wounds. ENDOCRINE: No unexplained weight loss. No weight gain. HEMATOLOGIC/LYMPHATIC: No anemia. No purpura. No petechiae. No prolonged or excessive bleeding. No palpable lymph nodes. PHYSICAL EXAMINATION: GENERAL: The patient is in no distress. VITAL SIGNS: Temperature 98.6, pulse 75, respiratory rate 18, blood pressure 103/55, pulse oximetry 97%. HEENT: Head normocephalic, atraumatic. Eyes: Extraocular muscles are intact. Pupils are equal, round and reactive to light and accommodation. Ears: No lesions. Nose appeared normal. Throat: No exudate or erythema. NECK: Supple. No JVD, no carotid bruit. No lymphadenopathy or thyromegaly. LUNGS: Decreased breath sounds with mild wheeze. Chest symmetrical. HEART: S1, S2, no S3. No murmurs. No cyanosis or clubbing. No ascites. Pulses: Dorsalis pedis and posterior tibial pulses +1 to +2 both sides. ABDOMEN: Soft. Nontender. Bowel sounds active. No CVA tenderness. No mass felt. EXTREMITIES: No edema. Full range of motion of all extremities, equal. NEUROLOGIC: No focal deficit. Cranial nerves II through XII are grossly intact. No headache, no double vision or headache. SKIN: Not dry. Intact. Turgor - normal. LYMPHATIC: No palpable lymph nodes/no lymphedema. MUSCULOSKELETAL: Normal joints with no swelling. Muscle tone is normal. LABS: Hemoglobin 11.3, hematocrit 34, WBC 8,500 with normal differential, creatinine 0.6, BUN 18, potassium 4.3, glucose 189. ASSESSMENT: 1. ACUTE BRONCHITIS WITH CHRONIC OBSTRUCTIVE PULMONARY DISEASE 2. HISTORY OF SMOKING 3. ATHEROSCLEROTIC GENERALIZED DISEASE 4. CORONARY ARTERY DISEASE BY CT SCAN OF THE CHEST 5. DIABETES MELLITUS 6. HYPERTENSION Y. HYPOTHYROIDISM PLAN: 1. DuoNebs. 2. Zosyn. 3. Steroids. TIME SPENT: More than 30 minutes. Plan and coordination of the patient's care discussed in the presence of nurse. GRIFFIN
--- NOTE | 2018-05-19 15:17 | PN ---
DATE OF SERVICE: 05/19/18 SUBJECTIVE: Ms. Quick was seen and examined with the nurse practitioner. Condition is improving. Cardiovascular and respiratory status stable. Continue antibiotics. Ms. Quick is being treated for upper respiratory infection, bronchitis. She has history of COPD. She has a Nicotine Patch. Counselling for smoking done. She is being treated with steroids, antibiotics and Nebs treatments. TIME SPENT: More than 30 minutes. Plan and coordination of the patient's care discussed in the presence of nurse. GRIFFIN
[2018-05-19] MEDS: COREG PO SCH (17:17)
[2018-05-19] MEDS: CYMBALTA PO SCH (20:21)
[2018-05-19] MEDS: ZESTRIL PO SCH (20:21)
[2018-05-19] MEDS: LANTUS SUBCUT SCH (20:24)
[2018-05-19] MEDS: PRAMIPEXOLE DI HCL 0.25 MG PO SCH (20:24)
[2018-05-19] MEDS ORDERED: NON-FORMULARY MEDICATION (Lisinopril [Lisinopril] 20 MG) PO SCH (21:00)
[2018-05-20] MEDS: ZOSYN 3.375 GM 3.375 GM in SODIUM CHLORIDE 50 ML IV SCH ×5 (00:34→23:52)
[2018-05-20] MEDS: DUONEB NEB SCH ×3 (05:45→19:45)
[2018-05-20] MEDS: SYNTHROID PO SCH ×2 (06:00→06:01)
[2018-05-20] MEDS: PEPCID PO SCH (06:01)
[2018-05-20] MEDS: LASIX TAB PO SCH (06:01)
[2018-05-20] MEDS: LIPITOR PO SCH (08:30)
[2018-05-20] MEDS: PREDNISONE PO SCH ×2 (08:31→17:08)
[2018-05-20] MEDS: COREG PO SCH ×2 (08:31→17:08)
[2018-05-20] MEDS: OXYCONTIN PO SCH ×2 (08:31→20:57)
[2018-05-20] MEDS: FERROUS SULFATE PO SCH ×2 (08:31→20:56)
[2018-05-20] MEDS: JANUVIA PO SCH (08:31)
[2018-05-20] MEDS: GLUCOPHAGE PO SCH ×2 (08:31→17:08)
[2018-05-20] MEDS: ZESTRIL PO SCH ×2 (08:32→20:56)
[2018-05-20] MEDS: DRONABINOL 5 MG PO SCH ×2 (08:32→21:45)
[2018-05-20] MEDS: RISPERDAL PO SCH (08:32)
[2018-05-20] MEDS: KEPPRA PO SCH ×2 (08:32→20:56)
[2018-05-20] MEDS: LOVENOX SUBCUT SCH (08:32)
--- NOTE | 2018-05-20 10:38 | PCM.PROG ---
Attending Provider: ATTENDING PROVIDER: Dr. ANNABELLE PENALOZA DATE OF SERVICE: 05/20/18 SUBJECTIVE: This 72 year old WHITE/ F was hospitalized 05/17/18 with acute bronchitis, COPD, and history of smoking. Condition improved clinically. She has croupy cough. The patient's daughter is in the room and gave history and seems to be quite knowledgeable. 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 REVIEW OF SYSTEMS: CONSTITUTIONAL: No night sweats. No fatigue, malaise, lethargy. No fever or chills. HEENT: Eyes: No visual changes. No eye pain. No eye discharge. ENT: No runny nose. No epistaxis. No sinus pain. No odynophagia. No congestion. RESPIRATORY: No cough, no congestion. No hemoptysis. No shortness of breath. CARDIOVASCULAR: No angina symptoms. No CHF symptoms. No atypical chest pain for CAD. No palpitations. No orthopnea.. GASTROINTESTINAL: No abdominal pain. No nausea or vomiting. No diarrhea or constipation. No hematemesis. No hematochezia. GENITOURINARY: No urgency. No frequency. No dysuria. No hematuria. No obstructive symptoms. No discharge. No pain. No significant abnormal bleeding. MUSCULOSKELETAL: No musculoskeletal pain; no joint swelling. NEUROLOGICAL: Awake, alert, oriented to time, place and person. No headache. No neck pain. No syncope. No seizures. No dizziness. PSYCHIATRIC: Not anxious. No depression. No suicidal thoughts. No homicidal thoughts. SKIN: No rash. No lesions. No wounds. ENDOCRINE: No unexplained weight loss. No weight gain. HEMATOLOGIC/LYMPHATIC: No anemia. No purpura. No petechiae. No prolonged or excessive bleeding. No palpable lymph nodes. PHYSICAL EXAMINATION: GENERAL: The patient is awake, alert and oriented, lying in bed in no distress. VITAL SIGNS: Temperature 98.0 F, Pulse 63, Respiratory Rate 16, BP 161/90, Pulse Ox 96% HEENT: Head normocephalic, atraumatic. Eyes: Extraocular muscles are intact. Pupils are equal, round and reactive to light and accommodation. Ears: No lesions. Nose appeared normal. Throat: No exudate or erythema. NECK: Supple. No JVD, no carotid bruit. No lymphadenopathy or thyromegaly. LUNGS: Decreased breath sounds with mild wheeze. Percussion note normal. Chest symmetrical. HEART: S1, S2, no S3. No murmurs. No cyanosis or clubbing. No ascites. Pulses: Dorsalis pedis and posterior tibial pulses +1 to +2 both sides. ABDOMEN: Soft. Non-tender. Bowel sounds active. No CVA tenderness. No mass felt. EXTREMITIES: No edema. Full range of motion of all extremities, equal. NEUROLOGIC: No focal deficit. Cranial nerves II through XII are grossly intact. No headache, no double vision or headache. SKIN: Warm and dry. Intact. Turgor-normal. LYMPHATIC: No palpable lymph nodes/no lymphedema. MUSCULOSKELETAL: Normal joints with no swelling. Muscle tone is normal. LAB REVIEW: 05/20/18 05:15 05/20/18 05:15 05/20/18 05:15: Sodium 142.7, Potassium 3.74, Chloride 101.4, Carbon Dioxide 30.9 H, Anion Gap 14.14, BUN 9.1, Creatinine 0.51 L, Estimated GFR (MDRD) 119.00 , BUN/Creatinine Ratio 17.84, Glucose 182.0 H, Calcium 8.97, Total Bilirubin 0.38, AST 19.1, ALT 16.4, Alkaline Phosphatase 69.3, Total Protein 6.03 L, Albumin 3.18 L, Globulin 2.85, Albumin/Globulin Ratio 1.11 05/20/18 05:15: WBC 7.59, RBC 3.07 L, Hgb 10.0 L, Hct 29.8 L, MCV 97.1, MCH 32.6 H, MCHC 33.6, RDW Coeff of Amanda 13.1, Plt Count 139 L, Immature Gran % (Auto ) 0.9, Neut % (Auto) 73.4, Lymph % (Auto) 15.5, [place] % (Auto) 9.5, Eos % (Auto) 0.3, Baso % (Auto) 0.4, Immature Gran # (Auto) 0.1, Neut # (Auto) 5.6, Lymph # ( Auto) 1.2, [place] # (Auto) 0.7, Eos # (Auto) 0.0, Baso # (Auto) 0.0 05/19/18 04:40: TSH 0.235 L 05/19/18 04:40: Free T4 1.56 ASSESSMENT: 1. Acute bronchitis/COPD/smoking. 2. Diabetes mellitus Type 2. 3. 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 She underwent radiation and recent chemotherapy, follows with Dr. Whitley, Hematology/Oncology and Dr. Moreno, Neurosurgeon with all treatment stopped for now. PLAN: 1. PFT 2. Echocardiogram 3. A1C 4. Lipid profile 5. D/C IV fluids 6. Counseling for smoking done Plan and coordination of the patient's care discussed in the presence of Welding Machine Operator Gas and nurse. CONDITION: STABLE. PROGNOSIS: POOR. SCRIBED BY: DAV BAE, Stock Blender scribed while in presence of service performed by Dr. ANNABELLE PENALOZA on 05/20/18 ([id number])
[2018-05-20] MEDS: HUMULIN R SUBCUT PRN ×3 (11:11→20:57)
--- NOTE | 2018-05-20 14:41 | HP ---
DATE OF SERVICE: 05/17/18 HISTORY OF PRESENT ILLNESS: This is a 72-year-old white female who [place] also [place]. She is a patient of Dr. Faye. She has not been eating for the past several days, coughing, low grade fever. PAST MEDICAL HISTORY: Diabetes mellitus Type 2 Dyslipidemia COPD Dementia Hypothyroidism History of seizures Anxiety Depression Anemia Leg edema Behavioral disorder History of recurrent UTIs Smoker PAST SURGICAL HISTORY: NKDA REVIEW OF SYSTEMS: CONSTITUTIONAL: Positive for fever, weakness, chills. No night sweats. No malaise, lethargy. HEENT: Eyes: No visual changes. No eye pain. No eye discharge. ENT: No runny nose. No epistaxis. No sinus pain. No sore throat. No odynophagia. No ear pain. No congestion. RESPIRATORY: Cough. Shortness of berath. No congestion. No hemoptysis. CARDIOVASCULAR: No angina symptoms. No CHF symptoms. No atypical chest pain for CAD. No palpitations. No PND. No orthopnea. GASTROINTESTINAL: No abdominal pain. No nausea or vomiting. No diarrhea or constipation. No hematemesis. No hematochezia. GENITOURINARY: No urgency. No frequency. No dysuria. No hematuria. No obstructive symptoms. No discharge. No pain. No significant abnormal bleeding. MUSCULOSKELETAL: No musculoskeletal pain. No joint swelling. No arthritis. NEUROLOGICAL: No headache. No neck pain. No syncope. No seizures. No dizziness. PSYCHIATRIC: Not anxious. No depression. No suicidal thoughts. No homicidal thoughts. SKIN: No rash. No lesions. No wounds. ENDOCRINE: No unexplained weight loss. No weight gain. HEMATOLOGIC/LYMPHATIC: No anemia. No purpura. No petechiae. No prolonged or excessive bleeding. No palpable lymph nodes. PERSONAL/FAMILY/SOCIAL HISTORY: She is still a current heavy everyday smoker. No alcohol or ilicit drug use. MEDICATIONS: Pramipexole 0.25 mg p.o. bedtime Lisinopril 20 mg p.o. b.i.d. Metformin 500 mg p.o. b.i.d. Atorvastatin 40 mg p.o. daily Carvedilol 6.25 mg p.o. b.i.d. Dronabinol 5 mg capsule p.o. b.i.d. Oxycodone 10 mg p.o. b.i.d. Levothyroxine 200 mcg p.o. daily Levetiracetam 500 mg p.o. b.i.d. Prednisone 10 mg p.o. b.i.d. Acetaminophen 325 mg p.o. q.4h p.r.n. Multivitamins one each p.o. daily Duloxetine 60 mg p.o. bedtime Levothyroxine 25 mcg p.o. daily Risperidone 0.5 mg p.o. daily Novolin R see protocol Furosemide - Lasix 20 mg p.o. daily Januvia 50 mg p.o. daily Feosol 325 mg p.o. b.i.d. Insulin Basaglar Kwik Pen 14 unit SQ bedtime Sulfamethoxazole/Trimethoprim one tab p.o. MoWeFr Ondansetron 4 mg p.o. q.6hr p.r.n. Ipratropium/Albuterol one vial neb q.4h p.r.n. Famotidine 20 mg p.o. q.d. a.c. ALLERGIES: NKDA PHYSICAL EXAMINATION: VITAL SIGNS: Temperature 97.8, heart rate 88, respirations 22, BP 78/44, pulse ox 90%. HEENT: Head normocephalic, atraumatic. Eyes: Extraocular muscles are intact. Pupils are equal, round and reactive to light and accommodation. Ears: No lesions. Nose appeared normal. Throat: No exudate or erythema. NECK: Supple. No JVD, no carotid bruit. No lymphadenopathy or thyromegaly. LUNGS: Diminished breath sounds bilaterally. Clear to auscultation. Percussion note normal. Chest symmetrical. HEART: S1, S2, no S3. No murmurs. No cyanosis or clubbing. No ascites. Pulses: Dorsalis pedis and posterior tibial pulses +1 to +2 bilaterally. ABDOMEN: Soft. Nontender. Bowel sounds active. No CVA tenderness. No mass felt. EXTREMITIES: Trace bilateral leg edema. Full range of motion of all extremities, equal. NEUROLOGIC: Alert, oriented to person, some bouts of confusion. No focal deficit. Cranial nerves II through XII are grossly intact. No headache, no double vision or headache. SKIN: Not dry. Intact. Turgor - normal. LYMPHATIC: No palpable lymph nodes/no lymphedema. MUSCULOSKELETAL: Normal joints with no swelling. Muscle tone is normal. CT scan showed changes associated with acute COPD exacerbation. White count 9.5 , hemoglobin 12.3, hematocrit 36.7, platelets 138. Sodium 134, potassium 3.9, BUN 18.3, creatinine 1.14, glucose 272. ABGs on room air 02 sat 93, pH 7.468, pc02 37, p02 63, bicarb 27.5, total c02 29, base excess of 4. Influenza A and B are both negative. ASSESSMENT: 1. ACUTE COPD EXACERBATION 2. DEHYDRATION 3. COPD 4. SMOKER 5. HYPOTENSION 6. DIABETES MELLITUS TYPE 2 7. ANEMIA PLAN: 1. We will admit. 2. CBC, CMP daily. 3. Routine telemetry orders. 4. UA. 5. Continue all home medications. 6. Oxygen at 1 to 2L via nasal cannula. 7. Regular low sodium diet. 8. Zosyn 3.375 IV. 9. NS IV at 75 cc/hr. 10. Tylenol as needed for fever. TIME SPENT: More than 70 minutes. MTDD
[2018-05-20] MEDS: CYMBALTA PO SCH (20:57)
[2018-05-20] MEDS: LANTUS SUBCUT SCH (21:04)
[2018-05-20] MEDS: PRAMIPEXOLE DI HCL 0.25 MG PO SCH (21:46)
[2018-05-21] MEDS: DUONEB NEB SCH ×2 (04:50→14:07)
[2018-05-21] MEDS: ZOSYN 3.375 GM 3.375 GM in SODIUM CHLORIDE 50 ML IV SCH ×2 (05:36→12:43)
[2018-05-21] MEDS ORDERED: SYNTHROID ONE (06:03)
[2018-05-21] MEDS: SYNTHROID PO SCH ×2 (06:07→06:13)
[2018-05-21] MEDS: LASIX TAB PO SCH (06:10)
[2018-05-21] MEDS: PEPCID PO SCH (06:11)
[2018-05-21] MEDS: HUMULIN R SUBCUT PRN ×2 (06:42→11:27)
[2018-05-21] MEDS: COREG PO SCH (08:56)
[2018-05-21] MEDS: JANUVIA PO SCH (08:57)
[2018-05-21] MEDS: OXYCONTIN PO SCH (08:57)
[2018-05-21] MEDS: GLUCOPHAGE PO SCH (08:57)
[2018-05-21] MEDS: ZESTRIL PO SCH (08:58)
[2018-05-21] MEDS: RISPERDAL PO SCH (08:58)
[2018-05-21] MEDS: PREDNISONE PO SCH (08:58)
[2018-05-21] MEDS: DRONABINOL 5 MG PO SCH (08:59)
[2018-05-21] MEDS: KEPPRA PO SCH (09:05)
[2018-05-21] MEDS: FERROUS SULFATE PO SCH (09:05)
[2018-05-21] MEDS: LIPITOR PO SCH (09:05)
[2018-05-21] MEDS: LOVENOX SUBCUT SCH (09:06)
--- NOTE | 2018-05-21 09:59 | PCM.PROG ---
Attending Provider: ATTENDING PROVIDER: Dr. ANNABELLE RENE This patient is seen with Nina Dixon, Nurse Practitioner. DATE OF SERVICE: 05/21/18 SUBJECTIVE: This 72 year old WHITE/ F was hospitalized 05/17/18. The patient is lying in bed resting comfortably. She has been eating well. She has had five days of Invanz treatment and is afebrile. REVIEW OF SYSTEMS: CONSTITUTIONAL: Weakness. No night sweats. No malaise, lethargy. No fever or chills. HEENT: Eyes: No visual changes. No eye pain. No eye discharge. ENT: No runny nose. No epistaxis. No sinus pain. No odynophagia. No congestion. RESPIRATORY: Cough, no congestion. No hemoptysis. No shortness of breath. CARDIOVASCULAR: No angina symptoms. No CHF symptoms. No atypical chest pain for CAD. No palpitations. No orthopnea.. GASTROINTESTINAL: No abdominal pain. No nausea or vomiting. No diarrhea or constipation. No hematemesis. No hematochezia. GENITOURINARY: No urgency. No frequency. No dysuria. No hematuria. No obstructive symptoms. No discharge. No pain. No significant abnormal bleeding. MUSCULOSKELETAL: No musculoskeletal pain; no joint swelling. NEUROLOGICAL: Awake, alert, oriented to time, place and person. No headache. No neck pain. No syncope. No seizures. No dizziness. PSYCHIATRIC: Not anxious. No depression. No suicidal thoughts. No homicidal thoughts. SKIN: No rash. No lesions. No wounds. ENDOCRINE: No unexplained weight loss. No weight gain. HEMATOLOGIC/LYMPHATIC: No anemia. No purpura. No petechiae. No prolonged or excessive bleeding. No palpable lymph nodes. PHYSICAL EXAMINATION: GENERAL: The patient is awake, alert and oriented, lying/sitting in bed in no distress. VITAL SIGNS: Temperature 97.9 F, Pulse 69, Respiratory Rate 22, BP 141/73, Pulse Ox 95% HEENT: Head normocephalic, atraumatic. Eyes: Extraocular muscles are intact. Pupils are equal, round and reactive to light and accommodation. Ears: No lesions. Nose appeared normal. Throat: No exudate or erythema. NECK: Supple. No JVD, no carotid bruit. No lymphadenopathy or thyromegaly. LUNGS: Diminished breath sounds. Clear to auscultation. Percussion note normal. Chest symmetrical. HEART: S1, S2, no S3. No murmurs. No cyanosis or clubbing. No ascites. Pulses: Dorsalis pedis and posterior tibial pulses +1 to +2 both sides. ABDOMEN: Soft. Non-tender. Bowel sounds active. No CVA tenderness. No mass felt. EXTREMITIES: No edema. Full range of motion of all extremities, equal. NEUROLOGIC: No focal deficit. Cranial nerves II through XII are grossly intact. No headache, no double vision or headache. SKIN: Not dry. Intact. Turgor-normal. LYMPHATIC: No palpable lymph nodes/no lymphedema. MUSCULOSKELETAL: Normal joints with no swelling. Muscle tone is normal. LAB REVIEW: 05/21/18 05:00 05/21/18 05:00 05/21/18 05:00: Sodium 140.0, Potassium 3.70, Chloride 104.0, Carbon Dioxide 31.0 H, Anion Gap 8.70, BUN 9.0, Creatinine 0.60, Estimated GFR (MDRD) 99.00, BUN/Creatinine Ratio 15.00, Glucose 184.0 H, Calcium 8.90, Total Bilirubin 0.20 , AST 13.0 L, ALT 15.0, Alkaline Phosphatase 72.0, Total Protein 6.20 L, Albumin 3.20 L, Globulin 3.00, Albumin/Globulin Ratio 1.06 05/21/18 05:00: WBC 4.53 L, RBC 3.27 L, Hgb 10.4 L, Hct 31.4 L, MCV 96.0, MCH 31.8 H, MCHC 33.1, RDW Coeff of Amanda 12.9, Plt Count 143, Immature Gran % (Auto) 1.5, Neut % (Auto) 66.2, Lymph % (Auto) 20.1, [place] % (Auto) 10.8 H, Eos % (Auto ) 0.7, Baso % (Auto) 0.7, Immature Gran # (Auto) 0.1, Neut # (Auto) 3.0, Lymph # (Auto) 0.9, [place] # (Auto) 0.5, Eos # (Auto) 0.0, Baso # (Auto) 0.0 05/20/18 05:15: Hemoglobin A1c 8.35 H 05/20/18 05:15: Triglycerides 76.8, Cholesterol 126.9, LDL Cholesterol, Calc 76 , VLDL Cholesterol 15, HDL Cholesterol 35.6, Cholesterol/HDL Ratio 3.6 L ASSESSMENT: 1. UTI, POSITIVE E. COLI AND ESBL 2. ACUTE BRONCHITIS/COPD/SMOKING. 3. DIABETES MELLITUS TYPE 2. 4. ANAPLASTIC ASTROCYTOMA LEFT FRONTAL LOBE WITH CRANIOTOMY DONE IN [place], NOVEMBER 2016. SHE UNDERWENT RADIATION AND RECENT CHEMOTHERAPY, FOLLOWS WITH DR. HOLMAN, HEMATOLOGY/ONCOLOGY AND DR. CADENA, NEUROSURGEON WITH ALL TREATMENT STOPPED FOR NOW. PLAN: 1. Decrease Synthroid 200 mcg 2. Macrobid 100 mg b.i.d. times 7 days 3. Prednsione 10 mg daily for 5 days, 5 mg daily for 5 days, 2.5 mg daily for 5 days then stop. 4. Duonebs t.i.d. 5. Continue Coreg 3.125 mg. Plan and coordination of the patient's care discussed in the presence of Contract Administration Manager and nurse. CONDITION: Stable SCRIBED BY: DAV BAE, Forging Machine Operator scribed while in presence of service performed by Dr. Rene/Nina Dixon APRN on 05/21/18 ([id number])
--- NOTE | 2018-05-21 12:06 | CM.DICTOOL ---
ADMISSION: 05/17/18 12:56 DISCHARGE: 05/21/18 DATE OF SERVICE: 05/21/18 FINAL DIAGNOSIS COPD EXACERBATION ACUTE BRONCHITIS UTI, E-COLI ORGANISM; ESBL POSITIVE CAD HYPERTENSION DYSLIPIDEMIA DIABETES, TYPE II HYPOTHYROID CHRONIC RESPIRATORY FAILURE ANEMIA ANAPLASTIC ASTROCYTOMA, LEFT FRONTAL LOBE S/P CRANIOTOMY W/TUMOR EXCISION (2016) S/P FAILED RADIATION & CHEMO (DR. HOLMAN, HEMOTOLOGIST/DR. CADENA, NEUROSURGEON) SEIZURE DISORDER OSTEOARTHRITIS DEPRESSION CRANIOTOMY, 11/2016 CHOLECYSTECTOMY, 1979' CURRENT EVERYDAY SMOKER, LIGHT LAST VITALS Temp Pulse Resp BP Pulse Ox 97.9 F 69 22 141/73 H 95 05/21/18 05:48 05/21/18 05:48 05/21/18 05:48 05/21/18 05:48 05/21/18 05:48 TAKE THESE MEDICATIONS AT HOME Acetaminophen (Tylenol) 650 mg PO Q4H PRN PRN Reason: Mild Pain Albuterol/Ipratropium (Duoneb) 1 vial NEB RTTID [facility] Last Admin: 05/21/18 04:50 Dose: 1 vial Atorvastatin Calcium (Lipitor) 40 mg PO DAILY [facility] Last Admin: 05/20/18 08:30 Dose: 40 mg Carvedilol (Coreg) 3.125 mg PO BIDWM [facility] Last Admin: 05/21/18 08:56 Dose: 3.125 mg Dronabinol [Dronabinol]) 5 mg PO BID [facility] Last Admin: 05/21/18 08:59 Dose: Not Given Duloxetine HCl (Cymbalta) 60 mg PO BEDTIME [facility] Last Admin: 05/20/18 20:57 Dose: 60 mg Famotidine (Pepcid) 20 mg PO QDAC [facility] Last Admin: 05/21/18 06:11 Dose: 20 mg Ferrous Sulfate (Ferrous Sulfate) 324 mg PO BID [facility] Last Admin: 05/20/18 20:56 Dose: 324 mg Furosemide (Lasix Tab) 20 mg PO QDAC [facility] Last Admin: 05/21/18 06:10 Dose: 20 mg Insulin Glargine (Lantus) 14 unit SUBCUT BEDTIME [facility] Last Admin: 05/20/18 21:04 Dose: 14 unit Insulin Human Regular (Humulin R) 0 unit SUBCUT PRN PRN; Protocol PRN Reason: Hyperglycemia Last Admin: 05/21/18 06:42 Dose: 3 unit Levetiracetam (Keppra) 500 mg PO BID [facility] Last Admin: 05/20/18 20:56 Dose: 500 mg Levothyroxine Sodium (Synthroid) 200 mcg PO QDAC [facility] Last Admin: 05/21/18 06:13 Dose: 200 mcg Lisinopril (Zestril) 20 mg PO BID [facility] Last Admin: 05/21/18 08:58 Dose: 20 mg Macrobid 100 mg PO BID x7 days Metformin HCl (Glucophage) 500 mg PO BIDWM [facility] Last Admin: 05/21/18 08:57 Dose: 500 mg Ondansetron HCl (Zofran Tab) 4 mg PO Q6HR PRN PRN Reason: Nausea / Vomiting Oxycodone HCl (Oxycontin) 10 mg PO Q12HR [facility] Last Admin: 05/21/18 08:57 Dose: 10 mg Pramipexole Di-Hcl [Pramipexole Er] 0.25 mg PO BEDTIME [facility] Last Admin: 05/20/18 21:46 Dose: Not Given Prednisone (Prednisone) 10 mg PO DAILYWM THEN, 5 mg PO DAILYWM THEN, 2.5 mg PO DAILYWM, THEN STOP [facility] Last Admin: 05/21/18 08:58 Dose: 10 mg Risperidone (Risperdal) 0.5 mg PO DAILY [facility] Last Admin: 05/21/18 08:58 Dose: 0.5 mg Sitagliptin Phosphate (Januvia) 50 mg PO DAILY [facility] Last Admin: 05/21/18 08:57 Dose: 50 mg Sulfamethoxazole/Trimethoprim (Bactrim DS) 800/160 mg PO DAILY MO,WE,FR ALLERGIES No Known Allergies Allergy (Verified 04/12/17 14:17) NEW PRESCRIPTIONS: Carvedilol [Coreg] 3.125 mg PO BIDWM #60 tablet 05/21/18 Ipratropium/Albuterol Neb [Duoneb] 1 vial NEB RTQ8H #90 vial.neb 05/21/18 Nitrofurantoin Monohyd/M-Cryst [Macrobid 100 mg Capsule] 100 mg PO BID 7 Days # 14 capsule 05/21/18 Prednisone 5 mg PO DIRECTED #18 tablet 05/21/18 SMOKING: SMOKING CESSATION WAS ENCOURAGED. THE PATIENT EXPLAINED TO US THAT SHE SMOKES VERY LITTLE DAILY. WE PROVIDED RISKS OF CONTINUATION AND BENEFITS OF COMPLETE CESSATION WITH REGARD TO HER CURRENT COPD AND CARDIOPULMONARY HEALTH. THE DAUGHTER HAS BEEN PRESENT TO HEAR THIS INFORMATION. THE PATIENT AND HER DAUGHTER DECLINED ASSISTANCE THROUGH USE OF NICOTINE PATCH. THEY BOTH FEEL THAT MS. BLANCO WILL BE ABLE TO CONTINUE COMPLETE CESSATION WITHOUT THIS SUPPORT. DISEASE SPECIFIC EDUCATION: DISCHARGE PLANS WERE EXPLAINED TO THE DAUGHTER AND PATIENT PENITENTIARY MEDICATIONS NEW MEDICATIONS AND MEDICATION CHANGES FOLLOW UP COPD UTI (E-COLI AND ESBL) DEHYDRATION HYPERTENSION SMOKING CESSATION LAB REVIEW: 05/21/18 05:00 05/21/18 05:00 05/21/18 05:00: Sodium 140.0, Potassium 3.70, Chloride 104.0, Carbon Dioxide 31.0 H, Anion Gap 8.70, BUN 9.0, Creatinine 0.60, Estimated GFR (MDRD) 99.00, BUN/Creatinine Ratio 15.00, Glucose 184.0 H, Calcium 8.90, Total Bilirubin 0.20 , AST 13.0 L, ALT 15.0, Alkaline Phosphatase 72.0, Total Protein 6.20 L, Albumin 3.20 L, Globulin 3.00, Albumin/Globulin Ratio 1.06 05/21/18 05:00: WBC 4.53 L, RBC 3.27 L, Hgb 10.4 L, Hct 31.4 L, MCV 96.0, MCH 31.8 H, MCHC 33.1, RDW Coeff of Amanda 12.9, Plt Count 143, Immature Gran % (Auto) 1.5, Neut % (Auto) 66.2, Lymph % (Auto) 20.1, [place] % (Auto) 10.8 H, Eos % (Auto ) 0.7, Baso % (Auto) 0.7, Immature Gran # (Auto) 0.1, Neut # (Auto) 3.0, Lymph # (Auto) 0.9, [place] # (Auto) 0.5, Eos # (Auto) 0.0, Baso # (Auto) 0.0 PLAN: DISCHARGE BACK TO [facility] TODAY, 05/21/18 CLOTH FRAMER WILL FOLLOW DURING USUAL PENITENTIARY ROUNDS RESUME PENITENTIARY MEDICATIONS PER LIST PROVIDED BY THE NURSING STAFF PLEASE NOTE THE DECREASE IN SYNTHROID (LEVOTHYROXINE SODIUM) TO 200 MCG PO QAM PLEASE NOTE THE DECREASE IN CARVEDILOL (COREG) TO 3.125 MG PO BID PLEASE NOTE THE CHANGE IN DOSE FOR THE PREDNISONE (SEE BELOW, NEW MEDICATIONS) PLEASE NOTE THE CHANGE IN ADMINISTRATION FREQUENCY FOR THE DUONEBS (SEE BELOW) NEW MEDICATIONS DUONEBS (ALBUTEROL/IPRATROPIUM), ONE NEB TID SCHEDULED SYNTHROID 200 MCG PO Q AM ON AN EMPTY STOMACH COREG 3.125 MG PO BID MACROBID 100 MG PO BID X 7 DAYS PREDNISONE 5 MG, TAKE TWO TABS (10 MG) PO BID X 5 DAYS, THEN TAKE ONE TAB (5 MG ) PO DAILY X 5 DAYS, THEN TAKE ONE-HALF TAB (2.5 MG) PO DAILY X 5 DAYS, THEN STOP. TAKE WITH FOOD LABS CBC WITH DIFF AND CMP IN ONE WEEK RESUME ACCU-CHECKS ACHS PER DR. CAR'S SLIDING SCALE PROTOCOL ACTIVITY PT/OT PLEASE EVALUATE AND TREAT INDICATED MAY PARTICIPATE IN PENITENTIARY ACTIVITY PROGRAM UP TO DINING ROOM FOR MEALS PLEASE OBSERVE CONTACT PRECAUTIONS IN REGARD TO THE UTI WITH E-COLI AND POSITIVE ESBL PER PENITENTIARY PROTOCOL DIET CONSISTENT CARBS DIE CAST ENGINEER, PLEASE CONSULT TO PROVIDE FOR OPTIMAL NUTRITIONAL NEEDS SUMMARY THE PATIENT IS ALERT AND ORIENTED TO PERSON. SHE BECOMES DISORIENTED AT TIMES BUT CONTINUES TO BE COOPERATIVE FOR CARE. SHE CURRENTLY RESIDES AT [facility]. HER SHE AND HER FAMILY DESIRE RETURN THERE AT DISCHARGE. SHE REQUIRES ASSISTANCE WITH ADL'S DUE TO HER KNOWN HISTORY OF LEFT FRONTAL ANAPLASTIC ASTROCYTOMA S/P CRAINOTOMY, FAILED CHEMO AND RADIATION. SHE IS ABLE TO AMBULATE WITH USE OF A ROLLING WALKER AND STAND-BY ASSISTANCE. SHE IS WEAKENED DUE TO THIS HOSPITAL STAY AND ILLNESS. THE SKIN TURGOR IS FAIR TO POOR. SKIN TO BOTH ARMS IS FRAGILE AND HAS MULTIPLE AREAS OF BRUISING IN VARIOUS STAGES OF HEALING. SHE HAS NO DECUBITUS ULCERS AT DISCHARGE. HYDRATION AND NUTRITIONAL STATUS ARE IMPROVED AT DISCHARGE. THE PATIENT AND HER DAUGHTER ARE BOTH AWARE AND AGREEABLE FOR TODAY'S DISCHARGE PLANS. THE PRIMARY CARE PHYSICIAN WILL RESUME SERVICES FOLLOWING RETURN TO THE PENITENTIARY. CURRENT CODE STATUS: FULL CODE STONE DAVIS APRN ANNABELLE PENALOZA M.D.
[2018-05-21 15:08] VITALS: BP 138/72; TEMP 98.2
--- NOTE | 2018-05-22 08:26 | ECHO2D ---
Date of Exam: 05/21/18 Ordering Physician: DR. ANNABELLE PENALOZA Room # : 115 Reason for Echo: SOB, WEAKNESS, HYPERTENSION M-Mode Normal Adult Results LV Dimensions Normal Adult Results AoV Opening excursions >1.6 >1.6 LVEDD-base- 3.5-5.8 4.3 Ao root dimensions 2.0-3.7 3.1 LVESD-base- 3.1-4.6 L. Atrium dimensions 1.9-3.8 3.6 Post. Wall thickness 0.8-1.1 1.2 IV septum (thickness) 0.7-1.2 1.2 Post. Wall excursion 0.72-1.3 NORMAL Septal motion NORMAL Systolic motion R. Ventricular cavity 1.5-2.0 NORMAL LVEF 60% 66% Paradoxical septal wall motion NORMAL 2-D : 2-D M Mode Echocardiogram was performed using apical four chamber and left parasternal long and short axis views. Mitral, tricuspid and aortic valves appear to be normal. Contractility of the left ventricle seems to be normal, so is the cavity size. Left atrial cavity size and aortic root appear to be normal. There is no pericardial effusion. There is no thrombus noted in the left ventricular or left aortic cavity. No mitral valve prolapse noted. M-MODE: MV: NORMAL AV: NORMAL TV: NORMAL PV: CHAMBER SIZE: NORMAL WALL MOTION: NORMAL PERICARDIUM: NORMAL INTERPRETATION: 1. BORDERLINE LEFT VENTRICULAR HYPERTROPHY 2. NORMAL VALVES 3. NORMAL LEFT VENTRICULAR CONTRACTILITY MTDD
--- NOTE | 2018-05-22 11:38 | DS ---
DATE OF SERVICE: 05/21/18 FINAL DIAGNOSIS: 1. COPD EXACERBATION 2. ACUTE BRONCHITIS 3. UTI, E-COLI ORGANISM, ESBL POSITIVE 4. CAD 5. HYPERTENSION 6. DYSLIPIDEMIA 7. DIABETES TYPE 2 8. HYPOTHYROID 9. CHRONIC RESPIRATORY FAILURE 10. ANEMIA 11. ANAPLASTIC ASTROCYTOMA, LEFT FRONTAL LOBE S/P CRANIOTOMY W/TUMOR EXCISION 2016 12. S/P FAILED RADIATION AND CHEMO (DR. HOLMAN, GEOPHYSICAL LABORATORY DIRECTOR/DR. CADENA, NEUROSURGEON) 13. SEIZURE DISORDER 14. OSTEOARTHRITIS 15. DEPRESSION 16. CRANIOTOMY, 11/2016 17. CHOLECYSTECTOMY, 18. CURRENT EVERYDAY SMOKER, LIGHT DISCHARGE INSTRUCTIONS: 1. Followup appointment: elastic attacher coverstitch will follow during usual half-way rounds. The patient is discharged back to [facility]. 2. CBC with Diff and CMP in one week 3. Resume Accu-Cheks a.c. and h.s. a sper Dr. Wise's sliding scale protocol. MEDICATIONS AT DISCHARGE: Tylenol 650 mg p.o. q.4h p.r.n. Duoneb t.i.d. ALEKS Lipitor 40 mg p.o. daily ALEKS Coreg 3.125 mg p.o. b.i.d. with meal Dronabinol 5 mg p.o. b.i.d. ALEKS Cymbalta 60 mg p.o. bedtime ALEKS Pepcid 20 mg p.o. q.d a.c. ALEKS Ferrous Sulfate 324 mg p.o. b.i.d. ALEKS Lasix 20 mg p.o. q.d a.c. ALEKS Lantus 14 unit subcut bedtime [facility]LE[facility] Humulin R 0 unit subcut p.r.n. Keppra 500 mg p.o. b.i.d. ALEKS Synthroid 200 mcg p.o. q.d. a.c. ALEKS Zestril 20 mg p.o. b.i.d. ALEKS Macrobid 100 mg p.o. b.i.d. times 7 days Metformin 500 mg p.o. b.i.d. with meal ALEKS Zofran 4 mg p.o. q.6h p.r.n. OxyContin 10 mg p.o. q.12h ALEKS Pramipexole 0.25 mg p.o. bedtime ALEKS Prednisone 10 mg p.o. daily with meal then 5 mg p.o. daily with meal then 2.5 mg p.o. daily with meal then stop ALEKS Risperidone 0.5 mg p.o. daily ALEKS Januvia 50 mg p.o. daily ALEKS Bactrim DS 800/160 mg p.o. daily Mo,,Sat NEW PRESCRIPTIONS: Carvedilol (Coreg) 3.125 mg p.o. b.i.d. with meal Ipratropium/Albuterol (Duoneb) neb RT q.8hr Nitrofurantoin (Macrobid 100 mg capsule) 100 mg p.o. b.i.d. 7 days Prednisone 5 mg p.o. as directed DIET INSTRUCTIONS: Consistent carbs Bridge Game Director please consult to provide for optimal nutritional needs ACTIVITY: PT/OT please evaluate and treat as indicated. May participate in half-way activity program. Up to dining room for meals. Please observe contact precautions in regard to the UTI with E-coli and positive ESLB as per half-way protocol. SMOKING: Smoking cessation was encouraged. The patient explained to us that she smokes very little daily. We provided risks of continuation and benefits of complete cessation with regard to her current COPD and cardiopulmonary health. The daughter has been present to hear this information. The patient and her daughter declined assistance through use of nicotine patch. They both feel that Ms. Quick will be able to continue complete cessation without this support. DISEASE SPECIFIC EDUCATION: Discharge plans were explained to the daughter and patient [facility] medications and medication changes Follow up COPD UTI ( E-coli and ESBL) Dehydration Hypertension Smoking cessation HOSPITAL COURSE: This 72-year-old white female is a resident of [facility] who was brought in with shortness of breath and cough. She is still a heavy smoker with long history of COPD. Chest x-ray showed no acute changes just changes associated with acute COPD exacerbation. She was in mild respiratory distress. Initial 02 sat was 87%. She does wear oxygen p.r.n. at the half-way. UA was abnormal positive for E. coli as well as ESBL positive. She was admitted, started on IV Zosyn as well as IV fluids, NS at 75 cc/hr, put on sliding scale coverage. All of her home medications were continued. We did make Duonebs t.i.d. scheduled. T4 and TSH showed low TSH. She is on 225 mcg of Synthroid which we decreased to 200 mcg daily. She was hypotensive on admission with blood pressure 80/50 likely due to dehydration and mild respiratory distress. After IV fluids her blood pressure increased. Initially her blood pressure meds were held. She is on Lisinopril 20 mg b.i.d. which we restarted. She had previously been on Coreg 6.25 b.i.d. which we decreased to 3.125 as her heart rate was already in the 60s with holding this medication so we restarted her on 3.125 b.i.d. and she has tolerated this well along with Lasix 20 mg daily. She has been on several days of IV Zosyn which was sensitive. We will discharge her back to the half-way on Macrobid 100 mg p.o. b.i.d. for the next 7 days which was also sensitive according to the report. Information has been given to her regarding smoking cessation. She will continue on nebs t.i.d. scheduled. Will put her on a tapering dose of Prednisone. She is not our patient and is quite unsure she came in on Prednisone 10 b.i.d. and seems that she had been on this medication for some time but she does not have severe enough COPD to warrant this as a daily medication so will put her on 10 mg daily for 5 days and then 5 mg daily for 5 days and then 2.5 mg daily for 5 days and then wean her off of the Prednisone and then Dr. Faye will follow up with her on regular rounds and determine whether he thinks that her case warrants daily Prednisone use. It did show some cardiomegaly on her chest x-ray. Dr. Rene did an echo prior to discharge. She has been eating 100% of her meals. Keppra level was normal. Her vital signs have been stable and labs all look normal on today, day of discharge so we will send her back to [facility]. She will have CBC and CMP in one week and Dr. Faye to follow up with her on rounds. TIME SPENT: More than 60 minutes. GRIFFIN
--- NOTE | 2018-05-22 13:21 | PN ---
DATE OF SERVICE: 05/21/18 SUBJECTIVE: The patient was seen and examined today by nurse practitioner. The patient's condition has improved. Dehydration, bronchitis seems to have resolved. Echocardiogram showed normal left ventricular contractility, normal valves, calcific aortic valves noted with no stenosis. Condition is stable. The patient will be discharged to the alf to be followed by primary care. TIME SPENT: More than 30 minutes. Plan and coordination of the patient's care discussed in the presence of nurse. GRIFFIN
--- NOTE | 2018-05-22 13:29 | PN ---
CODING FOR BILLING 05/17/18 LEVEL 5 05/18/18 INTERMEDIATE 05/19/18 INTERMEDIATE 05/20/18 INTERMEDIATE 05/21/18 DISCHARGE MTDD
== END 2018-05-21 16:48 | DRG 204 ==
LOC: ED 11:29 → MEDSURG B 12:56
PROVIDERS: ADMIT Internal Medicine; ATTEND Internal Medicine
DX: R06.00 Dyspnea, unspecified (principal); J44.1 Chronic obstructive pulmonary disease with (acute) exacerbation; J96.10 Chronic respiratory failure, unspecified whether with hypoxia or hypercapnia; N39.0 Urinary tract infection, site not specified; F03.91 Unspecified dementia, unspecified severity, with behavioral disturbance; J20.9 Acute bronchitis, unspecified; I25.10 Atherosclerotic heart disease of native coronary artery without angina pectoris; I10 Essential (primary) hypertension; E78.5 Hyperlipidemia, unspecified; E11.9 Type 2 diabetes mellitus without complications; E03.9 Hypothyroidism, unspecified; E86.0 Dehydration; F32.9 Major depressive disorder, single episode, unspecified; B96.20 Unspecified Escherichia coli [E. coli] as the cause of diseases classified elsewhere; D64.9 Anemia, unspecified; G40.909 Epilepsy, unspecified, not intractable, without status epilepticus; M19.90 Unspecified osteoarthritis, unspecified site; R53.1 Weakness; Z72.0 Tobacco use; Z99.81 Dependence on supplemental oxygen
CPT/HCPCS: 36415; 80053; 80061; 81001; 82803; 82962; 83036; 83605; 84145; 84439; 84443; 85025; 87040; 87081; 87086; 87186; 87502; 93005; 93010; 94640; 96361; 96365; 99284

== ENCOUNTER 2018-06-07 21:20 | Inpatient (IN) ==
[2018-06-07] MEDS ORDERED: ZOSYN 3.375 GM 3.375 GM in SODIUM CHLORIDE 50 ML IV STA (21:38)
[2018-06-07] MEDS ORDERED: SODIUM CHLORIDE 1,000 ML IV STA (21:38)
[2018-06-07 21:41] VITALS: BMI 33.1
--- NOTE | 2018-06-07 21:43 | ED.PDOC ---
General ED Provider: Dr. RICO GILLIS Chief Complaint: Fever Stated Complaint: fever at the assisted with T 102.1 F She was given Tylenol prior to arrival Time Seen by Physician: 21:41 Mode of Arrival: Ambulance Information Source: [facility] Primary Care Provider: ANNABELLE PENALOZA Seen Within Last 72 Hours for Same Complaint By: ED Nursing and Triage Documentation Reviewed and Agree: No Does patient meet sepsis criteria?: Yes If yes, has appropriate treatment been initiated?: Yes System Inflammatory Response Syndrome: Pulse >90 BPM Sepsis Protocol: For patient's 13 years and over: Temp is 96.8 and below OR 101 and greater Pulse >90 BPM Resp >20/minute Acutely Altered Mental Status Are patient's symptoms suggestive of a new infection, such as: -Pneumonia -Skin, Soft Tissue -Endocarditis -UTI -Bone, Joint Infection -Implantable Device -Acute Abdominal Infection -Wound Infection -Meningitis -Blood Stream Catheter Infection -Unknown Miscellaneous Complaint Exam - Febrile Illness/Adult Complaint/Exam Onset/Duration: 1 day Symptoms Are: Still present Timing: Constant Highest Temperature Recorded: 102.1 Associated Signs and Symptoms: Reports: Myalgia Review of Systems - Review Of Systems Constitutional: Reports: Fever Eyes: Reports: No symptoms Ears, Nose, Mouth, Throat: Reports: No symptoms Respiratory: Reports: Cough, Short of air, Wheezing Cardiac: Reports: No symptoms GI: Reports: No symptoms : Reports: No symptoms Musculoskeletal: Reports: No symptoms Skin: Reports: No symptoms Neurological: Reports: No symptoms Endocrine: Reports: No symptoms Hematologic/Lymphatic: Reports: No symptoms All Other Systems: Reviewed and Negative Past Medical History - Past Medical History Previously Healthy: Yes Endocrine: Reports: DM 2, Hypothyroid, Dyslipidemia Cardiovascular: Reports: CAD, Hypertension Respiratory: Reports: COPD, Bronchitis, Other (Hypoxia, Respiratory failure ) Hematological: Reports: Anemia Gastrointestinal: Reports: Unknown Genitourinary: Reports: Unknown Neuro/Psych: Reports: Depression, Dementia Musculoskeletal: Reports: None 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) Last Menstrual Period: hysterectomy Other Pertinent Past Medical History: ESBL, Adult falure to thrive , Pressure ulcers - Surgical History General Surgical History: Reports: None - Family History Family History: Reports: None - Social History Smoking Status: Current every day smoker, Light tobacco smoker Hx Substance Use: No Alcohol Screening: None - Immunizations Tetanus Shot up to Date: No (unknown) Physical Exam - Physical Exam Appearance: Ill-appearing Ill-appearing: Moderate Eyes: MARITZA, EOMI, Conjunctiva clear Neck: Supple Respiratory: Airway patent, Breath sounds equal, Rhonchi Cardiovascular: RRR, Pulses normal, No rub, No murmur GI/: Soft, Nontender, No masses, Bowel sounds normal, No Organomegaly Musculoskeletal: Normal strength, ROM intact, No edema, No calf tenderness Skin: Warm, Dry, Normal color Neurological: Alert, Oriented Psychiatric: Anxious Physician Notification - Case Discussed Physician Notified: Dr. Faye Time of Notification: 23:00 (Admit ) Critical Care Note - Critical Care Note Total Time (mins): 40 Course - Course Hematology/Chemistry: 06/07/18 22:20 06/07/18 22:20 Orders, Labs, Meds: Lab Review 06/07/18 06/07/18 06/07/18 22:04 22:10 22:20 WBC 7.81 RBC 3.07 L Hgb 9.8 L Hct 29.4 L MCV 95.8 MCH 31.9 H MCHC 33.3 RDW Coeff of Amanda 13.5 Plt Count 137 L Neut % (Auto) Senior Animator Lymph % (Auto) Senior Animator Valencia % (Auto) Senior Animator Eos % (Auto) Senior Animator Neutrophils % (Manual) 67.0 Lymphocytes % (Manual) 18.0 Monocytes % (Manual) 14.0 H Eosinophils % (Manual) 1.0 Anisocytosis Not present Puncture Site L rad O2 Saturation 92.0 L ABG pH 7.439 ABG pCO2 36.6 ABG pO2 61.0 L ABG HCO3 24.8 ABG Total CO2 26 ABG Base Excess 1 Param Test + FiO2 % 2.0 Sodium Potassium Chloride Carbon Dioxide Anion Gap BUN Creatinine Estimated GFR (MDRD) BUN/Creatinine Ratio Glucose Lactic Acid Calcium Total Bilirubin AST ALT Alkaline Phosphatase Total Creatine Kinase Troponin I Total Protein Albumin Globulin Albumin/Globulin Ratio Procalcitonin Influ A Molecular Assay Negative by naat Influ B Molecular Assay Negative by naat 06/07/18 06/07/18 06/07/18 22:20 22:20 22:20 WBC RBC Hgb Hct MCV MCH MCHC RDW Coeff of Amanda Plt Count Neut % (Auto) Lymph % (Auto) Valencia % (Auto) Eos % (Auto) Neutrophils % (Manual) Lymphocytes % (Manual) Monocytes % (Manual) Eosinophils % (Manual) Anisocytosis Puncture Site O2 Saturation ABG pH ABG pCO2 ABG pO2 ABG HCO3 ABG Total CO2 ABG Base Excess Param Test FiO2 % Sodium 134.1 L Potassium 4.01 Chloride 100.7 Carbon Dioxide 29.2 Anion Gap 8.21 BUN 22.9 H Creatinine 1.37 H Estimated GFR (MDRD) 38.00 BUN/Creatinine Ratio 16.71 Glucose 216.5 H Lactic Acid 1.16 Calcium 8.93 Total Bilirubin 0.71 AST 26.3 ALT 16.8 Alkaline Phosphatase 104.7 Total Creatine Kinase Troponin I Total Protein 6.23 L Albumin 3.19 L Globulin 3.04 Albumin/Globulin Ratio 1.04 Procalcitonin 0.84 Influ A Molecular Assay Influ B Molecular Assay 06/07/18 22:20 WBC RBC Hgb Hct MCV MCH MCHC RDW Coeff of Amanda Plt Count Neut % (Auto) Lymph % (Auto) Valencia % (Auto) Eos % (Auto) Neutrophils % (Manual) Lymphocytes % (Manual) Monocytes % (Manual) Eosinophils % (Manual) Anisocytosis Puncture Site O2 Saturation ABG pH ABG pCO2 ABG pO2 ABG HCO3 ABG Total CO2 ABG Base Excess Param Test FiO2 % Sodium Potassium Chloride Carbon Dioxide Anion Gap BUN Creatinine Estimated GFR (MDRD) BUN/Creatinine Ratio Glucose Lactic Acid Calcium Total Bilirubin AST ALT Alkaline Phosphatase Total Creatine Kinase 32.3 Troponin I 0.020 Total Protein Albumin Globulin Albumin/Globulin Ratio Procalcitonin Influ A Molecular Assay Influ B Molecular Assay Orders Category Date Time Status ABG DRAW REQUEST Routine CARDIO 06/07/18 22:10 Completed EKG-(ED ONLY) Stat CARDIO 06/07/18 21:54 Completed NEBULIZER TREATMENT Routine CARDIO 06/07/18 23:31 Ordered NEBULIZER TREATMENT Stat CARDIO 06/07/18 21:55 Completed OXYGEN Routine CARDIO 06/07/18 23:26 Ordered ACTIVITY .Early Mobilization for VTE Prevention CARE 06/07/18 23:26 Active BLOOD GLUCOSE MONITORING 0630,1100,1700,2100 CARE 06/07/18 23:28 Active GIVE HS SNACK 2100 CARE 06/07/18 23:28 Active INTAKE & OUTPUT Q8HR CARE 06/07/18 23:26 Active VITAL SIGNS Q4HR CARE 06/07/18 23:26 Active ADA 1800 IMMANUEL. DIET DIETARY 06/07/18 Breakfast Ordered HS SNACK DIETARY 06/07/18 Dinner Ordered ED APPLY O2 .ONCE EMERGENCY 06/07/18 21:39 Active ED SENIOR UNDERWRITING ASSISTANT APPLIED .ONCE EMERGENCY 06/07/18 21:39 Active ED IV/MEDIPORT/POWERPORT .ONCE EMERGENCY 06/07/18 22:03 Active ED VITAL SIGNS Q1HR EMERGENCY 06/07/18 21:39 Completed ABG Stat LAB 06/07/18 22:10 Completed BASIC METABOLIC PANEL DAILY@0600 LAB 06/08/18 06:00 Ordered BASIC METABOLIC PANEL DAILY@0600 LAB 06/09/18 06:00 Ordered BLOOD CULTURE (ED ONLY) Stat LAB 06/07/18 21:53 Received CBC W/ AUTO DIFF DAILY@0600 LAB 06/08/18 06:00 Ordered CBC W/ AUTO DIFF DAILY@0600 LAB 06/09/18 06:00 Ordered CBC W/ AUTO DIFF Stat LAB 06/07/18 22:20 Completed COMPREHENSIVE METABOLIC PANEL Stat LAB 06/07/18 22:20 Completed CREATINE KINASE Stat LAB 06/07/18 22:20 Completed FLU A & B MOLECULAR [FLU A/B MOLECULAR] Stat LAB 06/07/18 22:04 Completed LACTIC ACID Stat LAB 06/07/18 22:20 Completed MANUAL DIFFERENTIAL Stat LAB 06/07/18 22:20 Completed PROCALCITONIN Stat LAB 06/07/18 22:20 Completed TROPONIN I Stat LAB 06/07/18 22:20 Completed URINALYSIS C & S IF INDICATED Stat LAB 06/07/18 21:38 Uncollected 0.9 % Sodium Chloride [Saline Flush] MEDS 06/07/18 22:03 Ordered 1 syr IVF PRN PRN Acetaminophen [Tylenol] MEDS 06/07/18 23:26 Ordered 650 mg PO Q4H PRN Enoxaparin Sodium [Lovenox] MEDS 06/08/18 09:00 Ordered 30 mg SUBCUT DAILY Ipratropium/Albuterol Neb [Duoneb] MEDS 06/07/18 22:29 Discontinued 1 vial NEB .STK-MED ONE Ipratropium/Albuterol Neb [Duoneb] MEDS 06/07/18 21:54 Discontinued 1 vial NEB ONCE STA Ipratropium/Albuterol Neb [Duoneb] MEDS 06/08/18 06:00 Ordered 1 vial NEB RTQID Ondansetron HCl/Pf [Zofran 4 mg/2 ml] MEDS 06/07/18 23:26 Ordered 4 mg IVP Q6H PRN Piperacillin Sodium/Tazobactam [Zosyn 3.375 gm] 3.375 MEDS 06/07/18 21:38 Discontinued gm 0.9 % Sodium Chloride [Sodium Chloride] 50 ml IV ONCE Potassium Chloride in 0.9%NaCl [Sodium Chloride 0.9%- MEDS 06/07/18 23:30 Ordered KCl 20 Meq] 1,000 ml IV 125 mls/hr Sodium Chloride 0.9% [Sodium Chloride] 1,000 ml MEDS 06/07/18 21:38 Discontinued IV 1,000 mls/hr RESUSCITATION STATUS Routine OTHERS 06/07/18 23:26 Ordered CHEST, 1V AP ONLY Stat RADS 06/07/18 21:38 Completed Medications Generic Name Dose Route Start Last Admin Trade Name Freq PRN Reason Stop Dose Admin Acetaminophen 650 mg 06/07/18 23:26 Tylenol PO Q4H PRN Fever > 102 Albuterol/Ipratropium 1 vial 06/08/18 06:00 Duoneb NEB RTQID [facility] Carvedilol 3.125 mg 06/08/18 08:00 Coreg PO BIDWM ALEKS Enoxaparin Sodium 30 mg 06/08/18 09:00 Lovenox SUBCUT DAILY ALEKS Famotidine 20 mg 06/08/18 06:30 Pepcid PO QDAC ALEKS Furosemide 20 mg 06/08/18 09:00 Lasix Tab PO DAILY ALEKS Potassium Chloride/Sodium Chloride 1,000 mls @ 125 mls/hr 06/07/18 23:30 Sodium Chloride 0.9%-Kcl 20 Meq IV .Q8H [facility] Insulin Human Regular 0 unit 06/07/18 23:55 Humulin R SUBCUT DAILY PRN hyperglycemia Protocol Levetiracetam 500 mg 06/08/18 09:00 Keppra PO BID [facility] Levothyroxine Sodium 25 mcg 06/08/18 06:30 Synthroid PO QDAC [facility] Metformin HCl 500 mg 06/08/18 09:00 Glucophage PO BID [facility] Non-Formulary Medication 425 mg 06/08/18 09:00 Cranberry Fruit Extract [Cranberry] PO DAILY ALEKS Non-Formulary Medication 5 mg 06/08/18 09:00 Dronabinol [Dronabinol] PO BID ALEKS Non-Formulary Medication 60 mg 06/08/18 21:00 Duloxetine Hcl [Cymbalta] PO BEDTIME ALEKS Non-Formulary Medication 325 mg 06/08/18 09:00 Ferrous Sulfate [Feosol] PO BID A[facility] Non-Formulary Medication 14 unit 06/08/18 21:00 Insulin Glargine,Hum.Rec.Anlog [Basaglar Kwikpen U-100] SQ BEDTIME A[facility] Non-Formulary Medication 200 mcg 06/08/18 09:00 Levothyroxine Sodium [Synthroid] PO DAILY A[facility] Non-Formulary Medication 20 mg 06/08/18 09:00 Lisinopril [Lisinopril] PO BID A[facility] Non-Formulary Medication 0.25 mg 06/08/18 21:00 Pramipexole Di-Hcl [Pramipexole Er] PO BEDTIME A[facility] Non-Formulary Medication 0.5 mg 06/08/18 09:00 Risperidone [Risperdal] PO DAILY [facility] Non-Formulary Medication 40 mg 06/08/18 09:00 Atorvastatin Calcium [Atorvastatin Calcium] PO DAILY [facility] Ondansetron HCl 4 mg 06/07/18 23:26 Zofran 4 Mg/2 Ml IVP Q6H PRN Nausea / Vomiting Oxycodone HCl 10 mg 06/08/18 09:00 Oxycontin PO BID [facility] Sitagliptin Phosphate 50 mg 06/08/18 09:00 Januvia PO DAILY [facility] Sodium Chloride 1 syr 06/07/18 22:03 Saline Flush IVF PRN PRN To flush IV Discontinued Medications Generic Name Dose Route Start Last Admin Trade Name Freq PRN Reason Stop Dose Admin Albuterol/Ipratropium 1 vial 06/07/18 21:54 06/07/18 22:15 Duoneb NEB 06/07/18 21:55 1 vial ONCE STA Administration Piperacillin Sod/Tazobactam 50 mls @ 50 mls/hr 06/07/18 21:38 06/07/18 21:51 Sod 3.375 gm/ Sodium Chloride IV 06/07/18 22:37 50 mls/hr ONCE STA Administration Sodium Chloride 1,000 mls @ 1,000 mls/hr 06/07/18 21:38 06/07/18 21:52 Sodium Chloride IV 06/07/18 22:37 1,000 mls/hr .Q1H STA Administration Vital Signs: Temp Pulse Resp BP Pulse Ox 06/07/18 23:27 99.6 F 108 H 22 127/47 L 92 L 06/07/18 21:59 100.4 F H 06/07/18 21:21 100.4 F H 96 H 32 H 103/37 L 91 L Departure - Departure Time of Disposition: 23:35 Disposition: ADMITTED INPATIENT Discharge Problem: Pneumonia Qualifiers: Pneumonia type: due to unspecified organism Laterality: left Lung location: lower lobe of lung Qualified Code(s): J18.1 - Lobar pneumonia, unspecified organism Condition: Stable Pt referred to PMD for follow-up: Yes IPMP verified?: No Allergies/Adverse Reactions: Allergies No Known Allergies Allergy (Verified 04/12/17 14:17) Home Medications: Ambulatory Orders Pramipexole Di-HCl [Pramipexole Er] 0.25 mg PO BEDTIME 01/15/17 Levothyroxine Sodium [Synthroid] 200 mcg PO DAILY 04/12/17 Levetiracetam [Keppra] 500 mg PO BID 04/17/17 Acetaminophen [Tylenol] 650 mg PO Q4H PRN 04/27/18 Duloxetine HCl [Cymbalta] 60 mg PO BEDTIME 04/27/18 Ferrous Sulfate [Feosol] 325 mg PO BID 04/27/18 Furosemide [Lasix] 20 mg PO DAILY 04/27/18 Insulin Glargine,Hum.rec.anlog [Basaglar Kwikpen U-100] 14 unit SQ BEDTIME 04/27 Insulin Regular, Human [Novolin R] See Protocol IJ DAILY 04/27/18 Ondansetron HCl [Zofran] 4 mg PO Q6HR PRN 04/27/18 Risperidone [Risperdal] 0.5 mg PO DAILY 04/27/18 Sitagliptin Phosphate [Januvia] 50 mg PO DAILY 04/27/18 Sulfamethoxazole/Trimethoprim [Bactrim Ds 800/160 mg] 1 tab PO MOWEFR 04/27/18 Famotidine [Pepcid] 20 mg PO QDAC 05/17/18 Carvedilol [Coreg] 3.125 mg PO BIDWM #60 tablet 05/21/18 Ipratropium/Albuterol Neb [Duoneb] 1 vial NEB RTQ8H #90 vial.neb 05/21/18 Cranberry Fruit Extract [Cranberry] 425 mg PO DAILY 06/07/18 Insulin Regular, Human [Novolin R] 1 unit IJ DIRECTED 06/07/18 Levothyroxine Sodium [Synthroid] 25 mcg PO QDAC 06/07/18 Oxycodone HCl [Oxycontin] 10 mg PO BID 06/07/18
[2018-06-07] MEDS ORDERED: DUONEB NEB STA (21:54)
--- NOTE | 2018-06-07 22:18 | DI ---
EXAM: AP single view of the chest. HISTORY: Fever. FINDINGS: The bones are unremarkable. The cardiac silhouette is enlarged. The pulmonary vasculature is within normal limits. The right costophrenic angle is clear. The left costophrenic angle is not well visualized. There is left basilar atelectasis and/or pneumonia. Impression: Left basilar atelectasis and/or pneumonia. Cardiomegaly.
[2018-06-07] MEDS ORDERED: DUONEB NEB ONE (22:29)
[2018-06-07] MEDS ORDERED: TYLENOL PO PRN (23:26)
[2018-06-07] MEDS ORDERED: ZOFRAN 4 MG/2 ML IVP PRN (23:26)
[2018-06-08] MEDS ORDERED: ZOSYN 2.25 GM 2.25 GM in SODIUM CHLORIDE 50 ML IV SCH ×2
--- NOTE | 2018-06-08 00:17 | PCM ---
- Chief Complaint Chief Complaint: Febrile URI possible Pneumonia - History of Present Illness History of Present Illness: 72 yo WF resident of [facility] with 48 hours febrile URI now not responsive to tylenol. I was called early 06/06/18 around 1 am and informed patient had fever ,mild cough and rhinorrhea, I discused tylenol and to call back if still febrile 30-45 minutes later. No further calls until 06/07/18 8pm with fever 101 -102 not responsive to tylenol. Patient family wants her sent to [place] ER for evaluation. She has had an admission earlier this month for COPD exacerbation and was seen by Dr. Rene. 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 S/P failed raidation and chemo. Dr. Moreno. Seizure do, OA, depression, craniotomy 11/2016, chol 1980s. Ligth smoker. She was d/c to [place], CBC and CMP in 1 week post d/c and to continue SSI. She wasd/c with duoneb, macrobid and prednisone. PT/OT eval/treat, smoking cessation encouraged. She was brought in for that admit with SOA. Still smokes long history of COPD. CXR ont hat eval no acute changes. Mild resp distress initial o2 87%, O2 PRN NH. UA + ESBL. Admitted started on zosyn, IV fluids, NS 75CC/hour, SS coverage. Home meds continued. Duoneb TID. They decreased her levothyroxine to 200mcg at that visit. Hypotensive, BP improved w/ fluids. D/C NH w/ macrobid BID x 7 days. Recommended nebs TID, steroid taper. Cardiomegaly noted, Echo borderlien left ventricular hypertrophy, normal valves, normal LV contractility on 05/21/18. Presented to the ER [facility] with temp at [place] up to 102.1. Seen by DR. Stevenson at 21:41. She had elevated temp, elevated pulse and elevated Resp with altered mental status, meeting SIRS criteria. Cough, SOA, wheezing. As noted above numerous comorbid conditions to include DM2, dyslipidemia, obesity BMI 33, COPD , chronic tobacco, urine ESBL, pressure ulcers, brain cancer. Dr. Stovall called me tonluann at 2300 and informed me of need to admit. WBC 7.81, Hgb 9.8, 29.4, plt 137. Sodium 134, k+ 4.01, cl 100.7. BUN 22.9, Cr 1.37. Negative procalcitonin. Lactic acid 1.16. CK 32.3, torponin 0.020. ABG supports primary respiratory alkalosis acute w/ secondary metabolic alkalosis too. Flu negative. Urine ordered, not yet available. Blood cultures taken x 2. She received 1 dose of zosyn in ER. Reviewed Chart, labs, discussed case with Dr. Stovall. Patient seen in room 114 at 00:45 am 06/08/18 for Hospital day 1. Admit order for 23:33 but I was not able to get to see patient until after 0000. She has met SIRS criteria, sepsis with concern for urological and or pulmonary. Febrile illness, abx are needed. [place] resident with many issues. Talked with Daughter Sarah who noted mother was normal self on /sat this past week, isolated after last hospital stay but doing okay. Looking at pics, eating and held cig (did not smoke just held it). Starting night mild abd pain, mild cough, mild worsening. Saturday am fever and feeling worse. She notes she would get different reports from day and night nurses. Daytime eating well, and doing great and night nurse stating not eating anything and acting sickly. Saturday and saturday PO intake dropped. She smelled wet to daughter, incontinent of urine, had been incontinent of stool, with 3 unformed stools yesterday extremely foul smelling. Daughter noted that they had to clean her and make bed multiple times. Limited meals on 06/07/18. Normally daughter takes mother home on sundays but she is now in hospital. Discussed w/ daughter the above. They had actually planned on talking with hospice on saturday. I will place the order to see if they can see her today (06/08/18). She has known ESBL. REviewed last culture and the abx best to cover for pneumonia cefepime/vanco/levaquin will not cover the agent. She got zosyn x 1 in ER. Concern for zosyn and Vanco worsening renal function. Macrobid is sensitive she was on that agent. Confusion, dementia worsening. She is now not responsive, not communicative. She will open eyes, she did stick out tongue (black coating), no reported vomiting. She will answer yup and nope but these do not seem to be appropriate, daughter in room agreed. They were doing chemo up until 1 month ago, stopped 04/2018. She has terminal brain tumor, end stage COPD, now ESBL. She had been on bactrim prophy 3x weekly up until rcently. Isolation since out of hospital 05/21/18. No known stroke, no known time period for all of this to happen. Health is poor at this time. SIRS/SEPSIS MDR pathogen in urine. I discussed again call with [facility] 1 am 06/06/18 and they told me fever and URI, mild cough, I discussed tylenol and call me back if still running fever. Called and did well saturday. Daughter notes that was not true, she has been acting like this since . Confusion, fatigue, c/o abd pain. INcontinent of stool, very foul smelling, >3 unformed in 24 hours. Patient is not able to answer questions other than yep/nope and these are not appropriate at times. Concern for ability to give PO agents. GCS 10-11 at present time [id number]. - Review of Systems Constitutional: fever, chills, weakness, sweats, fatigue, loss of appetite Eyes: No: blurred vision, double-vision, discharge, itching, pain, redness, photophobia, other Ears: No: pain, bleeding, drainage, ringing, hearing loss, other Nose: congestion, discharge. No: bleeding, other Throat: pain. No: swelling, voice change, other Mouth: No: bleeding, pain, swelling, other Respiratory: cough, shortness of air, wheeze, pain with breathing. No: hemoptysis, other Cardiovascular: No: chest pain, left arm pain, diaphoresis, PND, orthopnea, edema, palpitations, syncope, other Gastrointestinal: nausea. No: abdominal pain, vomiting, diarrhea, melena, hematemesis, hematochezia, dysphagia, constipation, other Genitourinary: No: dysuria, hematuria, frequency, incontinence, flank pain, vaginal discharge, abnormal bleeding, pelvic pain, other Neurological: headache. No: dizziness, seizure, numbness, weakness, speech difficulty, problems with walking, tremor, fainting, other Musculoskeletal: No: pain, swelling in joints, other Skin: No: rash, pruritus, lacerations, wounds, bruising, other Immunology: No: hives, itching, frequent infections, difficulty healing, other Hematology: No: easy bruising, easy bleeding, swollen glands, other Endocrine: No: weight changes, cold intolerance, heat intolerance, excessive thirst, excessive hunger, polyuria, other Psychiatric: depression. No: anxiety, sleeplessness, hopelessness, suicidal, hallucinations, other Habits: tobacco use. No: substance use, alcohol use, other - Past Medical History Past Medical History: COPD, petroleum terminal plant operator tobacco, ESBL urine, CAD, HTN, dyslipidemia, DM 2 a1c goal <8.5, Chronic respiratory failure, anaplastic astrocytoma, left frotnal lobe s/p craniotomy w/ tumor excision 2016. S/P failed radiation and chemo (Dr. Whitley hematoligst/Dr. Moreno neur). Sieizures , OA, depression, light tobacco user. Hypothyroid (overtreated dose decreased 05/21 to 200mcg daily). RLS, Chronic O2 use. - Past Surgical History Past Surgical History: Jacy, Hysterectomy, Craniotomy (2017). - Allergies Allergies/Adverse Reactions: Allergies Allergy/AdvReac Type Severity Reaction Status Date / Time No Known Allergies Allergy Verified 04/12/17 14:17 - Medications Medications: Medications Generic Name Dose Route Start Last Admin Trade Name Freq PRN Reason Stop Dose Admin Acetaminophen 650 mg 06/07/18 23:26 Tylenol PO Q4H PRN Fever > 102 Albuterol/Ipratropium 1 vial 06/08/18 06:00 Duoneb NEB RTQID ALEKS Enoxaparin Sodium 30 mg 06/08/18 09:00 Lovenox SUBCUT DAILY ALEKS Potassium Chloride/Sodium Chloride 1,000 mls @ 125 mls/hr 06/07/18 23:30 Sodium Chloride 0.9%-Kcl 20 Meq IV .Q8H ALEKS Ondansetron HCl 4 mg 06/07/18 23:26 Zofran 4 Mg/2 Ml IVP Q6H PRN Nausea / Vomiting Sodium Chloride 1 syr 06/07/18 22:03 Saline Flush IVF PRN PRN To flush IV - Family History Past Family History: Diabetes/Heart Disease runs in family. - Social History Past Social History: Chronic tobacco, no ETOH, no drugs. - Vital Signs Temperature: 99.6 F Pulse Rate: 108 Respiratory Rate: 22 Blood Pressure: 127/47 O2 Sat by Pulse Oximetry: 92 - Body Composition Height: 5 ft 5 in Weight: 199 lb 6.4 oz Body Mass Index (BMI): 33.1 - Physical Examination HEENT: Constitutional: Appearance-Ill appearing, numerous tears to upper extremities, numerous ecchymosis and e/o skin breakdown. REactive to tape, easily torn skin , thin. She is resting in left lateral decubitus, sore on left wrist eval by nursing and wrapped by nursing. She is not in any acute resp or physical distress, Older than stated age. Orientation- Not oriented to person/place/ time. Build and Nutrition-[Obese female] General- Patient is avoidant of pain stimuli, will open eyes to command, did stick out tongue. Somnolent. Integumentary: General-No e/o infectious rash. Numerous small ecchymoses. Palpation- Normal radial pulse, cap refil bilateral UE and LE. Toenail onychomycosis. Thin skin. #2 sacral/buttock decub ulcers present from NH. Head/Neck: Head- normocephalic and atraumatic. Neck- without visible/palpable lumps or pulsations. Palpation- No bony tenderness about head/neck along frontal, occipital, temporal, parietal, mastoid, jawline, zygoma, orbit or any other location. NO temporal artery tenderness. No TMJ tenderness. Neck Supple. Eye: Reactive to light, accomodation, equal/round. Opened eyes to command. ENMT: Pinna- normal without tenderness or erythema. External auditory canal Left- normal without erythema or discharge, no excessive cerumen. External auditory canal Right-normal without erythema or discharge, no excessive cerumen. TM left- Unable to visualize, head on pillow she was not responsive to roll. TM Right- Chan/pearly, normal light reflex and anatomy Hearing Assessment -normal to conversational speech. Nose and sinus- No sinus tenderness along frontal/maxillary region. External appearance normal and midline. Nares- bilateral quiet airflow,clear discharge. Nasal mucosa- No bleeding noted and no ulcerations observed. Erythematous Turbinates boggy. Lips- normal color, moist without cracks/lesions Oral Cavity/Palate- hard/soft palate intact without lesions, oral mucosa pink and moist. Tongue normal midline. Black hairy tongue. Dentures uppers. Oropharynx- no pharyngeal erythema, Uvula midline. No post nasal drip. No exudate. Salivary glands- Non tender to palpation CHEST/LUNG:Auscultation- Breath coarse and distant throughout all lung menon. NO accessory muscle usage. Normal tracheal sounds, bronchial sounds overlying sternum, Bronchovessicular sounds between scapulae posteriorly, vessicular breath sounds heard throughout periphery coarse and mucoid. Adventitious sounds - wheezes, rales, rhonchi throughout. CARDIOVASCULAR: Palpation/Percussion- Normal PMI, no palpable thrill Auscultation- Regular rate and rhythm. No murmur noted but difficult to auscultate over pulmonic sounds. ABDOMEN: Inspection- Auscultation- Bowel sounds normal, no abdominal bruits. Palpation/Percussion- soft, reported tender, but didnot awaken with palpation. no rebound tenderness, no rigidity (guarding), no jar tenderness, no masses. Peripheral Vascular: Upper extremity Left- Normal temperature with pink nailbeds and no ulcerations. Upper extremity Right- Normal temperature with pink nailbeds and no ulcerations. Lower extremity- Normal temperature with pink nailbeds and no ulcerations. DP pulses 2+ bilaterally. Pedal hair intact. Normal capillary refill. Edema- No edema. Musculoskeletal: Limited as patient would not comply. She moved extremities to pain and stimulus but would not resist motions. Neurological: General- Moves all 4 extremities symmetrically w/ pain/tickle. Would not cooperate with CN eval. Neuro exam difficult GCS 10-11. Neuropsych: Not Oriented tp Person, place or time. (AAOx3), Confused, not providing adequate information. Concen infection, worsening dementia, worsening brain tumor. We will checkimaging, get Hospice involved. - Lab/Tests/Diagnostic Imaging Lab/Tests/Diagnostic Imaging: Laboratory Last Values WBC 7.81 K/ul (4.6-10.2) 06/07/18 22:20 RBC 3.07 10^6/ul (4.20-5.40) L 06/07/18 22:20 Hgb 9.8 g/dl (12.0-16.0) L 06/07/18 22:20 Hct 29.4 % (37.0-47.0) L 06/07/18 22:20 MCV 95.8 fl (81.0-99.0) 06/07/18 22:20 MCH 31.9 pg (27.0-31.0) H 06/07/18 22:20 MCHC 33.3 (31.8-35.4) 06/07/18 22:20 RDW Coeff of Amanda 13.5 % (11.6-14.8) 06/07/18 22:20 Plt Count 137 10^3/uL (140-440) L 06/07/18 22:20 Neut % (Auto) Radiology Rn 06/07/18 22:20 Lymph % (Auto) Radiology Rn 06/07/18 22:20 Crowley % (Auto) Radiology Rn 06/07/18 22:20 Eos % (Auto) Radiology Rn 06/07/18 22:20 Neutrophils % (Manual) 67.0 % (42.2-75.2) 06/07/18 22:20 Lymphocytes % (Manual) 18.0 % (10.0-50.0) 06/07/18 22:20 Monocytes % (Manual) 14.0 % (0.0-10.0) H 06/07/18 22:20 Eosinophils % (Manual) 1.0 % (0.0-5.0) 06/07/18 22:20 Anisocytosis Not present (NOT PRESENT) 06/07/18 22:20 Puncture Site L rad 06/07/18 22:10 O2 Saturation 92.0 % (95-100) L 06/07/18 22:10 ABG pH 7.439 (7.35-7.45) 06/07/18 22:10 ABG pCO2 36.6 mmHg (35-45) 06/07/18 22:10 ABG pO2 61.0 mmHg (85-100) L 06/07/18 22:10 ABG HCO3 24.8 (22.0-26.0) 06/07/18 22:10 ABG Total CO2 26 (22.0-28.0) 06/07/18 22:10 ABG Base Excess 1 (-2.0-2.0) 06/07/18 22:10 Param Test + 10/27/18 22:10 FiO2 % 2.0 % 06/07/18 22:10 Sodium 134.1 mmol/L (137-145) L 06/07/18 22:20 Potassium 4.01 mmol/L (3.5-5.1) 06/07/18 22:20 Chloride 100.7 mmol/L (98-107) 06/07/18 22:20 Carbon Dioxide 29.2 mmol/L (22-30.0) 06/07/18 22:20 Anion Gap 8.21 06/07/18 22:20 BUN 22.9 mg/dL (7-17) H 06/07/18 22:20 Creatinine 1.37 mg/dL (0.60-1.30) H 06/07/18 22:20 Estimated GFR (MDRD) 38.00 mL/min 06/07/18 22:20 BUN/Creatinine Ratio 16.71 06/07/18 22:20 Glucose 216.5 mg/dL (74-106) H 06/07/18 22:20 Lactic Acid 1.16 mmol/L (0.7-2.1) 06/07/18 22:20 Calcium 8.93 mg/dL (8.4-10.2) 06/07/18 22:20 Total Bilirubin 0.71 mg/dL (0.2-1.3) 06/07/18 22:20 AST 26.3 U/L (14-36) 06/07/18 22:20 ALT 16.8 U/L (0-35) 06/07/18 22:20 Alkaline Phosphatase 104.7 U/L (53-141) 06/07/18 22:20 Total Creatine Kinase 32.3 U/L (30-135) 06/07/18 22:20 Troponin I 0.020 ng/ml (0.0000-0.120) 06/07/18 22:20 Total Protein 6.23 g/dL (6.3-8.2) L 06/07/18 22:20 Albumin 3.19 g/dL (3.5-5.0) L 06/07/18 22:20 Globulin 3.04 06/07/18 22:20 Albumin/Globulin Ratio 1.04 06/07/18 22:20 Procalcitonin 0.84 ng/mL (0.09) 06/07/18 22:20 Influ A Molecular Assay Negative by naat (NEGATIVE) 06/07/18 22:04 Influ B Molecular Assay Negative by naat (NEGATIVE) 06/07/18 22:04 CXR: Bibasilar atelectasis vs pneumonia. Echo from 1010 Borderline LVH, normal valves, normal left ventricular contractility. - Assessment (1) DARIUS (acute kidney injury) Status: Acute Code(s): N17.9 - ACUTE KIDNEY FAILURE, UNSPECIFIED SNOMED Code (s): 79519343 (2) Light smoker Status: Acute (3) Pneumonia Status: Acute Code(s): J18.9 - PNEUMONIA, UNSPECIFIED ORGANISM SNOMED Code(s ): 903448090 Qualifiers: Pneumonia type: due to unspecified organism Laterality: left Lung location: lower lobe of lung Qualified Code(s): J18.1 - Lobar pneumonia, unspecified organism (4) COPD (chronic obstructive pulmonary disease) Status: Acute Code(s): J44.9 - CHRONIC OBSTRUCTIVE PULMONARY DISEASE, UNSPECIFIED SNOMED Code(s): 67254340 Qualifiers: COPD type: COPD with acute exacerbation Qualified Code(s): J44.1 - Chronic obstructive pulmonary disease with (acute) exacerbation (5) Dehydration Status: Acute Code(s): E86.0 - DEHYDRATION SNOMED Code(s): 90317318 (6) SIRS (systemic inflammatory response syndrome) Status: Acute Code(s): R65.10 - SIRS OF NON-INFECTIOUS ORIGIN W/O ACUTE ORGAN DYSFUNCTION SNOMED Code(s): 482730037 (7) Type 2 diabetes mellitus with hemoglobin A1c goal of less than 8.5% Status: Acute Code(s): E11.9 - TYPE 2 DIABETES MELLITUS WITHOUT COMPLICATIONS SNOMED Code(s): 49324258 (8) Hyponatremia Status: Acute Code(s): E87.1 - HYPO-OSMOLALITY AND HYPONATREMIA SNOMED Code( s): 26011731 (9) End stage COPD Status: Acute Code(s): J44.9 - CHRONIC OBSTRUCTIVE PULMONARY DISEASE, UNSPECIFIED SNOMED Code(s): 800395626 (10) Brain tumor Status: Acute Code(s): D49.6 - NEOPLASM OF UNSPECIFIED BEHAVIOR OF BRAIN SNOMED Code(s): 484577051 (11) Confusion Status: Acute Code(s): R41.0 - DISORIENTATION, UNSPECIFIED SNOMED Code(s): 154576451 (12) Abdominal pain Status: Acute Code(s): R10.9 - UNSPECIFIED ABDOMINAL PAIN SNOMED Code(s): 20391164 (13) Decubitus ulcer Status: Acute Code(s): L89.90 - PRESSURE ULCER OF UNSPECIFIED SITE, UNSPECIFIED STAGE SNOMED Code(s): 161607846 - Plan Plan: SIRS w/ Sepsis Possible Pneumonia possible urological source: Recent ESBL, CXR atelectasis vs pneumonia. PORT score at least 150 points with Class V 27-29.2% mortality and hospital recommend evaluation. CURB 65 supports this as well with 4 points. ER started Zosyn. I will stop this, change to cefepime, vancomycin, levaquin and dose based on her current renal function. With her recent admit, recent abx use, I have to consider HAP and consider MDR agents. I will change abx from zosyn to cefepime. [place] CRCL 42-54 ml/min, EGFR 38. Cefepime renal dose to 2 gram q 24 hours. Vancomycin 15mg/kg/dose IV BID is typically recommended, which would be 1356.8 mg/dose. With current renal funciton 1250 mg q 24 hours and we will have pharmacy help with trough. Goal for her 15-20 mcg/ml. Levaquin 500 today, 250 daily thereafter IV. We will treat for estimated 5 days of abx, consider 7 days. Nebs albuterol q 4 hours, Ipratropium QID and O2 titrate to 92-98%. Negative procalcitonin. I will change the cefepime to imipenem after this first dose. This was sensitive on the ESBL culture from 05/21 and will cover pneumonia as well. - F/U Blood cultures - REpeat CBC in am - REpeat CMP in am - O2 titrate to 92-98%. - Await UA C/S. - Albuterol q 4 hours prn - Ipratropium QID scheduled - Cefepime 2 gram q 24 hours based on renal function (DOSE 1 given but D/C as Urine ESBL is resistant to this) - Vanco 1250 mg q 24 hours. - Levaquin 500mg today and then 250mg daily (ESBL URINE RESISTANT TO THIS) - Primaxin 500 q 8 (renal dosed instead of 500 Q 6). - Albuterol Q4 hours - Ipratropium QID mixed with albuterol. ESBL Urine: Change cefepime to primaxin. Terminal Brain cancer: Worsening cognition, not responding to answers. DOes respond to pain. Will open eyes, no meaningful conversation. She did sit up once and state "I have to pee." Stopped chemo 04/2018. Was considering hospice eval on 06/09/18. I will place referral. - CT head. Dementia/Confusion: CT head. - CT head - CBC/CMP in am. DM 2 Diabetes Goal <8.5 A1C: Last A1C 8.35 05/20/18. SSI while in hospital. - Sliding scale - Hold metformin while in hospital. Psuedohyponatremia: mild persistent hyponatremia after Sodium corrects to 136 based on glucose of 216.5 and sodium of 134.1. - Repeat CMP in 24 hours. DARIUS: Baseline Creatine runs about 0.51-0.60. We will repeat CMP. - MOnitor CMP. Hypothyroid: 25mcg tablet held at d/c. It was resumed at admit. I have held this again. Concern Cdiff: - Check Cdiff stool Smoking: Tobacco Cessation discussed today for 2 minutes. We reviewed lifestyle choices and discussed quitting. Ready to quit status discussed. The risks and hazards of continued tobacco abuse were discussed with the patient today and total tobacco cessation as recommended. It was clearly and unambiguously explained that continued tobacco usage will adversely affect overall morbidity and mortality of the patient. Patient was informed that tobacco use can lead to numerous cancers, worsening of cardiovascular and pulmonary systems and that lung damage is often permanent and irreversible. I advised the patient to inform me if any further assistance is requested, as we can offer counseling services, nicotine replacement inhaled, patch, lozenge, gum , or prescription medications to include Chantix or Wellbutrin for assistance. I will reassess the interest in tobacco cessation at the next and all subsequent visits. DVT Prophy: Lovenox 30 Diet: ADA 1800 shayan Activity: Up with assist/Bed alarm Code Status: DNR. Dispo: Suspect need to keep for ~3 days due to acute illness, recent hospitalization 05/17-05/21 with return to [place] and now return to hospital. She is DNR. Abx Day 1 10/28/18. - HOSPICE REFERRAL. Addendum: Called 3:13 am, urinary issues, requested mendosa. Verbal order place mendosa. Urine culture collected. Addendum 2: checked on patient at 9 am and patient was out for CT Head/abd/ pelvis Addendum 3: CT head no acute process. CT abd/pelvis, enlarged left kidney compared to right with fat stranding. Concern for pyelo. 1.9 cm ventral abd wall subcutaneous density on left abdomen. ?Injection site. Aneusrym both common iliac arteries. Atherosclerosis is present. Addendum 4: Called 10PM last night 06/08/18 with + blood culture Gram + in pairs suggestive of strep. She is on primaxin, vanco and levquin. Now suspected ?Renal source vs less likely pneumonia. ESBL historically are not Gram Positive. >70 minutes spent 06/08/18 with patient.
[2018-06-08] MEDS ORDERED: LEVAQUIN 500 MG in PREMIX 100 ML D5W 1 BAG IV STA (00:33)
[2018-06-08] MEDS ORDERED: ALBUTEROL 0.083% NEB NEB PRN (00:39)
[2018-06-08] MEDS ORDERED: LEVAQUIN 100 ML IV ONE (00:52)
[2018-06-08] MEDS: SODIUM CHLORIDE 0.9%-KCL 20 MEQ 1,000 ML IV SCH ×3 (00:56→16:11)
[2018-06-08] MEDS ORDERED: MAXIPIME 2 GM in SODIUM CHLORIDE 100 ML IV SCH (01:00)
[2018-06-08] MEDS ORDERED: MAXIPIME IV ONE (02:02)
[2018-06-08] MEDS: VANCOMYCIN 1.25 GM in SODIUM CHLORIDE 250 ML IV SCH ×2 (03:56→09:22)
[2018-06-08] MEDS ORDERED: PRIMAXIN 500 MG in SODIUM CHLORIDE 100 ML IV SCH (05:00)
[2018-06-08] MEDS: ATROVENT 0.02% NEB NEB SCH ×4 (05:20→23:15)
[2018-06-08] MEDS ORDERED: DUONEB NEB SCH (06:00)
[2018-06-08] MEDS: PEPCID PO SCH (06:06)
[2018-06-08] MEDS ORDERED: SYNTHROID PO SCH (06:30)
[2018-06-08] MEDS ORDERED: COREG PO SCH (08:00)
[2018-06-08] MEDS ORDERED: NON-FORMULARY MEDICATION (Risperidone [Risperdal] 0.5 MG) PO SCH (09:00)
[2018-06-08] MEDS ORDERED: GLUCOPHAGE PO SCH (09:00)
[2018-06-08] MEDS ORDERED: NON-FORMULARY MEDICATION (Atorvastatin Calcium [Atorvastatin Calcium] 40 MG) PO SCH (09:00)
[2018-06-08] MEDS ORDERED: NON-FORMULARY MEDICATION (Ferrous Sulfate [Feosol] 325 MG) PO SCH (09:00)
[2018-06-08] MEDS ORDERED: NON-FORMULARY MEDICATION (Levothyroxine Sodium [Synthroid] 200 MCG) PO SCH (09:00)
[2018-06-08] MEDS ORDERED: NON-FORMULARY MEDICATION (Lisinopril [Lisinopril] 20 MG) PO SCH (09:00)
[2018-06-08] MEDS: ZESTRIL PO SCH ×2 (09:22→21:09)
[2018-06-08] MEDS: COREG PO SCH ×2 (09:22→16:38)
[2018-06-08] MEDS: JANUVIA PO SCH (09:23)
[2018-06-08] MEDS: KEPPRA PO SCH ×2 (09:23→21:10)
[2018-06-08] MEDS: FERROUS SULFATE PO SCH ×2 (09:23→21:09)
[2018-06-08] MEDS: SYNTHROID PO SCH (09:24)
[2018-06-08] MEDS: RISPERDAL PO SCH (09:25)
[2018-06-08] MEDS: OXYCONTIN PO SCH ×2 (09:25→21:09)
[2018-06-08] MEDS: LASIX TAB PO SCH (09:25)
[2018-06-08] MEDS: LOVENOX SUBCUT SCH (09:26)
[2018-06-08] MEDS: CRANBERRY FRUIT EXTRACT 425 MG PO SCH (09:27)
[2018-06-08] MEDS: DRONABINOL 5 MG PO SCH ×2 (09:28→21:10)
--- NOTE | 2018-06-08 09:34 | CT ---
EXAM: CT of the head without contrast. HISTORY: Altered mental status. COMPARISON: 04/24/2017. TECHNIQUE: Noncontrast CT of the head. FINDINGS: Operative changes of left temporal craniotomy are again seen. Underlying encephalomalacia appears sim ilar. There is similar mild ex vacuo dilatation of the temporal horn of the left lateral ventricle. N o large area of griffin white matter differentiation loss is seen. The mild prominence of the sulci. Mil d to moderate bicerebral periventricular white matter hypodensities are identified. Intracranial shayan cified atherosclerotic plaque is seen. The visualized paranasal sinuses are unopacified. IMPRESSION: No evidence of an acute intracranial process. Operative changes of left temporal craniotomy with similar underlying temporal encephalomalacia. Mild atrophy. Mild to moderate chronic small vessel ischemic changes.
--- NOTE | 2018-06-08 09:41 | CT ---
EXAM: Noncontrast CT of the abdomen and pelvis HISTORY: Abdominal pain COMPARISON: 05/17/2018 TECHNIQUE: Axial noncontrast CT of the abdomen pelvis with sagittal and coronal reformats. FINDINGS: The heart is enlarged. Noncontrast technique limits evaluation of the abdominal viscera. The unenhanced liver appears unrema rkable. The gallbladder has been removed. A splenic calcified granuloma is seen. The unenhanced ad renals and pancreas appear unremarkable. There are a few right renal probable vascular calcification s. Mild left perinephric fat stranding is identified. The left kidney is mildly enlarged compared to the right. Left renal probable vascular calcifications are seen. No hydronephrosis or ureteral calcu li are seen. A tiny calcification near the left renal pelvis also appears to be vascular in etiology on sagittal images. The stomach is underdistended. No abnormal small bowel dilation is seen. The colon appears within nor mal limits. The appendix is not seen. There is calcified atherosclerotic plaque of the aorta and some of its branches. Both common iliac ar teries are mildly dilated, both measuring 1.6 cm. A Hanks catheter is seen in the bladder. No free ai r or free fluid is seen. There is multilevel degenerative disc disease and facet arthropathy. A smal l fat-containing umbilical hernia is seen. The left lower ventral abdominal wall subcutaneous nodular density is seen measuring 1.9 cm. IMPRESSION: Mild asymmetric enlargement of the left kidney with adjacent fat stranding. This could be inflammato ry or infectious. Follow-up to resolution recommended. Bilateral renal probable vascular calcifications. No definite evidence of urolithiasis. Atherosclerosis. 1.9 cm left ventral abdominal wall subcutaneous nodular density which could related to medication inj ection. 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 Status post cholecystectomy. Noncontrast exam.
[2018-06-08] MEDS: HUMULIN R SUBCUT PRN ×3 (11:05→21:17)
[2018-06-08] MEDS: PRIMAXIN 500 MG in SODIUM CHLORIDE 100 ML IV SCH ×2 (12:13→21:58)
[2018-06-08] MEDS ORDERED: LIPITOR PO SCH (21:00)
[2018-06-08] MEDS ORDERED: NON-FORMULARY MEDICATION (Duloxetine Hcl [Cymbalta] 60 MG) PO SCH (21:00)
[2018-06-08] MEDS ORDERED: INSULIN GLARGINE HUM REC ANLOG 14 UNIT SQ SCH (21:00)
[2018-06-08] MEDS ORDERED: [UNRECOGNIZED DRUG - OTHER] SQ SCH (21:00)
[2018-06-08] MEDS ORDERED: PRAMIPEXOLE DI HCL 0.25 MG PO SCH (21:00)
[2018-06-08] MEDS: LEVAQUIN 250 MG in PREMIX 50 ML D5W 1 BAG IV SCH (21:08)
[2018-06-08] MEDS: LANTUS SUBCUT SCH (21:08)
[2018-06-08] MEDS: CYMBALTA PO SCH (21:09)
[2018-06-08] MEDS: MIRAPEX PO SCH (21:09)
[2018-06-08] MEDS: LIPITOR PO SCH (21:10)
[2018-06-09] MEDS: SODIUM CHLORIDE 0.9%-KCL 20 MEQ 1,000 ML IV SCH ×4 (03:13→19:05)
[2018-06-09] MEDS: PRIMAXIN 500 MG in SODIUM CHLORIDE 100 ML IV SCH ×3 (04:29→21:26)
[2018-06-09] MEDS: ATROVENT 0.02% NEB NEB SCH ×4 (05:00→23:15)
[2018-06-09] MEDS: SYNTHROID PO SCH (05:35)
[2018-06-09] MEDS: PEPCID PO SCH (05:36)
[2018-06-09] MEDS: LASIX TAB PO SCH (05:36)
[2018-06-09] MEDS: HUMULIN R SUBCUT PRN ×4 (05:42→20:22)
--- NOTE | 2018-06-09 07:49 | PCM.PROG ---
Subjective: 72 yr old CF HD 1 pneumonia vs pyelo, + BC x 2 G+ Cocci in pairs. Daughter and son in law present in room this am. Discussed case over last 24 hours. Vitals look great. Telemetry reviewed and NSR and some SR w/ BBB. She has been afebrile <100.3 since 0600 06/08/18. HR has been up and down, BP has been stable. Glucose improved 216/206.7/157.8. Urine output last 2 shifts 2ml/kg/ hr and 1.25 ml/kg/hr. Reviewed labs she has e/o hemodilution w/ drop of WBC 7.8 to 6.4 to 5.45, hgb 9.8 to 9.4 to 8.6. Plt 137 to 133 to 120. Sodium remains mildly hyponatremic at 134.5, K+ stable at 3.96 and renal function improving drastically from 1.37 to 1.21 to 0.85. She is on abx day 2. She was given a single dose of zosyn in ER 06/07/18. On 06/08/18 she was changed to cefepime, vanco, levaquin. This was adjusted by me based on ESBL urine culture and I changed the cefepime to primaxin. She was unresponsive 06/08/18 but this has markedly improved. CT head, no acute process 06/08/18. CT abdomen mildly enlarged left kidney compared to right. She is breathing better, mendosa is in place. Vitals improving, urine output stable, afebrile 24 hours. Blood cultures are + x 2. This am she feels marked better, answering questions, AAox3 , daughter noted this has not been like this since night. I am leaning towards urological source of infection. 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 Hospice referral has been placed. Patient has no c/o pain this am. She has very thin skin, numerous areas of skin breakdown. Again, markedly improved from 24 hours ago. NO stools in 24 hours. I will take her off cdiff precaution at this time as she has not had any stools. No abd pain, mild nausea. NO stooling. REVIEW OF SYMPTOMS: (Positives bolded) General: weight loss, fever (RESOLVED), chills, night sweats, fatigue, appetite loss HEENT: blurry vision, eye pain, eye discharge, dry eyes, decreased vision, sore throat tinnitus, bloody nose, hearing loss, sinus pain/pressure, ear pain/ pressure. Respiratory: shortness of breath, cough, hemoptysis, wheezing, pleurisy, Cardiovascular: chest pain, PND, palpitation, edema, orthopnea, syncope, swelling of extremities Gastro: Nausea, vomiting, diarrhea, hematemesis, abdominal pain, Possible constipation Genito: hematuria, dysuria, glycosuria, hesitancy, frequency, incontinence, + Mendosa in place Musckelo: Arthralgia, myalgia, muscle weakness, joint swelling, NSAID use Skin: rash, pruritis, sores, nail changes, skin thickening, change in wart/mole , nail changes Neuro: Migraine, numbness, ataxia, tremor, vertigo, weakness, memory loss ( improving), Irritability, dizziness Endocrine: excessive thirst, polyuria, cold intolerance, heat intolerance, goiter Psychiatric: depression, anxiety, anti-depressants, alcohol abuse, drug abuse, insomnia, change in sleep pattern and mood changes Heme/lymph: easy bruising, bleeding gums, blood clots, swollen glands, lymphedema, Allergic/immune: allergic rhinitis, hay fever, asthma, hives Objective: Vital Signs - 24 hr 06/08/18 06/08/18 06/08/18 08:00 10:00 13:47 Temperature 98 F 98.5 F Pulse Rate 78 68 Respiratory 24 20 20 Rate Blood Pressure 147/64 H 122/68 O2 Sat by Pulse 95 Oximetry 06/08/18 06/08/18 06/09/18 18:00 21:54 01:58 Temperature 98.5 F 98.1 F 97.8 F Pulse Rate 87 78 78 Respiratory 18 12 14 Rate Blood Pressure 105/50 L 128/58 L 132/66 O2 Sat by Pulse 95 96 95 Oximetry 06/09/18 06/09/18 05:57 07:23 Temperature 98.4 F 99.6 F Pulse Rate 77 108 H Respiratory 20 22 Rate Blood Pressure 130/60 127/47 L O2 Sat by Pulse 97 92 L Oximetry Constitutional: Appearance-Ill appearing, markedly improved from 24 hours ago. Still w/ numerous tears to upper extremities, left has bandages in place. numerous ecchymosis and e/o skin breakdown. Reactive to tape, easily torn skin , thin. She is resting supine, awake conversant, which is new compared to yesterday. She is still not in any acute resp or physical distress, Appears Older than stated age. Orientation- NOW she is oriented to person/place/time. conversant and pleasant to conversation. Son-in-law and daughter in room. Build and Nutrition-[Obese female] General- Patient is awake, alert, follows commands. Integumentary: General-No e/o infectious rash. Numerous small ecchymoses bilateral UE. Palpation- Normal radial pulse, cap refil bilateral UE and LE. Toenail onychomycosis. Thin skin. #2 sacral/buttock decub ulcers present from NH. protected barriers in place, rolling parameters in place. Head/Neck: Head- normocephalic and atraumatic. Neck- without visible/palpable lumps or pulsations. Palpation- No bony tenderness about head/neck along frontal, occipital, temporal, parietal, mastoid, jawline, zygoma, orbit or any other location. NO temporal artery tenderness. No TMJ tenderness. Neck Supple. Eye: Reactive to light, accomodation, equal/round. Opened eyes to command. Normal extraoccular motions. PERRLA. ENMT: Nose and sinus- No sinus tenderness along frontal/maxillary region. External appearance normal and midline. Nares- bilateral quiet airflow,clear discharge. Nasal mucosa- No bleeding noted and no ulcerations observed. Erythematous Turbinates boggy. Lips- normal color, moist without cracks/lesions Oral Cavity/Palate- hard/soft palate intact without lesions, oral mucosa pink and moist. Tongue normal midline. Black hairy tongue. Dentures uppers. Oropharynx- no pharyngeal erythema, Uvula midline. No post nasal drip. No exudate. Salivary glands- Non tender to palpation CHEST/LUNG:Auscultation- Breath coarse and distant throughout all lung menon. NO accessory muscle usage. Normal tracheal sounds, bronchial sounds overlying sternum, Bronchovessicular sounds between scapulae posteriorly, vessicular breath sounds heard throughout periphery coarse and mucoid. These are better, better protection of airway, clearing secretions on own. Regular neb treatments are given. Adventitious sounds- wheezes, rales, rhonchi throughout. This is better/more stable and seems to be at baseline. CARDIOVASCULAR: Palpation/Percussion- Normal PMI, no palpable thrill Auscultation- Regular rate and rhythm. No murmur noted but still difficult to auscultate over pulmonic sounds. ABDOMEN: Inspection- Auscultation- Bowel sounds normal, no abdominal bruits. Palpation/Percussion- soft, nontender, no rebound tenderness, no rigidity ( guarding), no jar tenderness, no masses. Peripheral Vascular: Upper extremity Left- Normal temperature with pink nailbeds and no ulcerations. Upper extremity Right- Normal temperature with pink nailbeds and no ulcerations. Lower extremity- Normal temperature with pink nailbeds and no ulcerations. DP pulses 2+ bilaterally. Normal capillary refill. Normal pulses. Edema- No edema. Musculoskeletal:Moving all 4. Ecg Technician 5/5. Hip flexion 5/5. Bicep flexion 5/5. Tricep 5/5. Str and movement seem okay. Will get phys therapy to evaluate ambulation. Neurological: General- Moves all 4 extremities symmetrically. Reflexes 1+ and symmetrical patellar, achilles, bicep. Followed commands. Now GCS 15. Neuropsych: Oriented Fully now. Person, place or time. (AAOx3), Still mildly Confused. Some retro amnesia over past 1 week. Brain imaging evaluated and no acute process. Infection seems to be resolving. She is more alert, awake. Pleasant. No SI/HI. Mood stable. Laboratory Last Values WBC 5.45 K/ul (4.6-10.2) 06/09/18 04:30 RBC 2.68 10^6/ul (4.20-5.40) L 06/09/18 04:30 Hgb 8.6 g/dl (12.0-16.0) L 06/09/18 04:30 Hct 25.7 % (37.0-47.0) L 06/09/18 04:30 MCV 95.9 fl (81.0-99.0) 06/09/18 04:30 MCH 32.1 pg (27.0-31.0) H 06/09/18 04:30 MCHC 33.5 (31.8-35.4) 06/09/18 04:30 RDW Coeff of Amanda 13.5 % (11.6-14.8) 06/09/18 04:30 Plt Count 120 10^3/uL (140-440) L 06/09/18 04:30 Neut % (Auto) Carbonating Stone Cleaner 06/07/18 22:20 Lymph % (Auto) Carbonating Stone Cleaner 06/07/18 22:20 [place] % (Auto) Carbonating Stone Cleaner 06/07/18 22:20 Eos % (Auto) Carbonating Stone Cleaner 06/07/18 22:20 Neutrophils % (Manual) 72.0 % (42.2-75.2) 06/09/18 04:30 Band Neutrophils % 2.0 % (0.0-5.0) 06/09/18 04:30 Lymphocytes % (Manual) 18.0 % (10.0-50.0) 06/09/18 04:30 Monocytes % (Manual) 8.0 % (0.0-10.0) 06/09/18 04:30 Eosinophils % (Manual) 1.0 % (0.0-5.0) 06/08/18 05:20 Metamyelocytes % 2.0 % (0.0-2.0) 06/08/18 05:20 Anisocytosis Not present (NOT PRESENT) 06/09/18 04:30 Puncture Site L rad 06/07/18 22:10 O2 Saturation 92.0 % (95-100) L 06/07/18 22:10 ABG pH 7.439 (7.35-7.45) 06/07/18 22:10 ABG pCO2 36.6 mmHg (35-45) 06/07/18 22:10 ABG pO2 61.0 mmHg (85-100) L 06/07/18 22:10 ABG HCO3 24.8 (22.0-26.0) 06/07/18 22:10 ABG Total CO2 26 (22.0-28.0) 06/07/18 22:10 ABG Base Excess 1 (-2.0-2.0) 06/07/18 22:10 Param Test + 06/07/18 22:10 FiO2 % 2.0 % 06/07/18 22:10 Sodium 134.5 mmol/L (137-145) L 06/09/18 04:30 Potassium 3.96 mmol/L (3.5-5.1) 06/09/18 04:30 Chloride 105.2 mmol/L (98-107) 06/09/18 04:30 Carbon Dioxide 26.8 mmol/L (22-30.0) 06/09/18 04:30 Anion Gap 6.46 06/09/18 04:30 BUN 14.7 mg/dL (7-17) 06/09/18 04:30 Creatinine 0.85 mg/dL (0.60-1.30) 06/09/18 04:30 Estimated GFR (MDRD) 66.00 mL/min 06/09/18 04:30 BUN/Creatinine Ratio 17.29 06/09/18 04:30 Glucose 157.8 mg/dL (74-106) H 06/09/18 04:30 Lactic Acid 1.16 mmol/L (0.7-2.1) 06/07/18 22:20 Calcium 8.32 mg/dL (8.4-10.2) L 06/09/18 04:30 Total Bilirubin 0.71 mg/dL (0.2-1.3) 06/07/18 22:20 AST 26.3 U/L (14-36) 06/07/18 22:20 ALT 16.8 U/L (0-35) 06/07/18 22:20 Alkaline Phosphatase 104.7 U/L (53-141) 06/07/18 22:20 Total Creatine Kinase 32.3 U/L (30-135) 06/07/18 22:20 Troponin I 0.020 ng/ml (0.0000-0.120) 06/07/18 22:20 Total Protein 6.23 g/dL (6.3-8.2) L 06/07/18 22:20 Albumin 3.19 g/dL (3.5-5.0) L 06/07/18 22:20 Globulin 3.04 06/07/18 22:20 Albumin/Globulin Ratio 1.04 06/07/18 22:20 Procalcitonin 0.84 ng/mL (0.09) 06/07/18 22:20 Urine Color Yellow (YELLOW) 06/08/18 03:41 Urine Clarity Turbid (CLEAR) 06/08/18 03:41 Urine pH 6.0 (5-9) 06/08/18 03:41 Ur Specific [place] [id number] (1.005-1.030) 06/08/18 03:41 Urine Protein 2+ (NEGATIVE) 06/08/18 03:41 Urine Glucose (UA) Negative (NEGATIVE) 06/08/18 03:41 Urine Ketones Negative (NEGATIVE) 06/08/18 03:41 Urine Blood 2+ (NEGATIVE) 06/08/18 03:41 Urine Nitrite Positive (NEGATIVE) 06/08/18 03:41 Urine Bilirubin Negative (NEGATIVE) 06/08/18 03:41 Urine Urobilinogen 0.2 (0.2) 06/08/18 03:41 Ur Leukocyte Esterase 2+ (NEGATIVE) 06/08/18 03:41 Urine Microscopic RBC 5-10 (0-2) 06/08/18 03:41 Urine Microscopic WBC Tntc (0-2) 06/08/18 03:41 Ur Squamous Epith Cells 5-10 (0-5) 06/08/18 03:41 Urine Bacteria 2+ (NOT PRESENT) 06/08/18 03:41 Urine Mucus 1+ (NOT PRESENT) 06/08/18 03:41 Influ A Molecular Assay Negative by naat (NEGATIVE) 06/07/18 22:04 Influ B Molecular Assay Negative by naat (NEGATIVE) 06/07/18 22:04 H/H Trends 06/07/18 06/08/18 06/09/18 Range/Units 22:20 05:20 04:30 Hgb 9.8 L 9.4 L 8.6 L (12.0-16.0) g/dl Hct 29.4 L 28.4 L 25.7 L (37.0-47.0) % WBC Trends 06/07/18 06/08/18 06/09/18 Range/Units 22:20 05:20 04:30 WBC 7.81 6.41 5.45 (4.6-10.2) K/ul Blood culture: + for cocci in pairs. Urine culture Pending UA with + Nitrite 06/08/18 CT Head: "No E/O Intracranial process Operative changes left temporal craniotomy with similar underlying temporal encephalomalacia mild atrophy mild to moderate chronic small vessel ischemic changes." 06/08/18 CT Abd/pelvis: WO contrast. "Mild asymtetric enlargement of left kidney w/ adjacent fat stranding. Inflammatory vs infectious. Bilateral renal vascular calcifications. NO urolithiasis. Atherosclerosis. 1.9 cm left ventral abdominal wall subcutaneous nodular density could relate to medication injection. Aneursym dilation of both common ilac arteries measuring 1.6 cm. Status post deepika, noncontrasted exam. " (1) DARIUS (acute kidney injury) Status: Resolved Code(s): N17.9 - ACUTE KIDNEY FAILURE, UNSPECIFIED SNOMED Code(s): 41471818 (2) Light smoker Status: Chronic (3) Pneumonia Status: Acute Code(s): J18.9 - PNEUMONIA, UNSPECIFIED ORGANISM SNOMED Code(s ): 293549249 (4) COPD (chronic obstructive pulmonary disease) Status: Chronic Code(s): J44.9 - CHRONIC OBSTRUCTIVE PULMONARY DISEASE, UNSPECIFIED SNOMED Code(s): 72583590 (5) Dehydration Status: Resolved Code(s): E86.0 - DEHYDRATION SNOMED Code(s): 23671731 (6) SIRS (systemic inflammatory response syndrome) Status: Acute Code(s): R65.10 - SIRS OF NON-INFECTIOUS ORIGIN W/O ACUTE ORGAN DYSFUNCTION SNOMED Code(s): 859862067 (7) Type 2 diabetes mellitus with hemoglobin A1c goal of less than 8.5% Status: Chronic Code(s): E11.9 - TYPE 2 DIABETES MELLITUS WITHOUT COMPLICATIONS SNOMED Code(s): 99784328 (8) Hyponatremia Status: Chronic Code(s): E87.1 - HYPO-OSMOLALITY AND HYPONATREMIA SNOMED Code(s): 86408737 (9) End stage COPD Status: Chronic Code(s): J44.9 - CHRONIC OBSTRUCTIVE PULMONARY DISEASE, UNSPECIFIED SNOMED Code(s): 184594458 (10) Brain tumor Status: Chronic Code(s): D49.6 - NEOPLASM OF UNSPECIFIED BEHAVIOR OF BRAIN SNOMED Code(s): 659882031 (11) Confusion Status: Acute Code(s): R41.0 - DISORIENTATION, UNSPECIFIED SNOMED Code(s): 054790878 (12) Abdominal pain Status: Acute Code(s): R10.9 - UNSPECIFIED ABDOMINAL PAIN SNOMED Code(s): 35755943 (13) Decubitus ulcer Status: Acute Code(s): L89.90 - PRESSURE ULCER OF UNSPECIFIED SITE, UNSPECIFIED STAGE SNOMED Code(s): 787910103 Plan: SIRS W/ Sepsis Urological vs pulmonic source: W/ CT abd urological source seems more likely. BC + x 2 w/ cocci in pairs. I will continue vanco, levaquin and primaxin. I will likely continue these for 7-10 days. She has been afebrile 24 hours, awake and alert now, improving. CT showed e/o possible pyelo on left. Mendosa in place. Tele in place and reviewed and SR/SR w/ BBB. No concerning rhythms. She is afebrile, AAOX3 now and in no pain. She is markedly improved from yesterday. Continue abx. Hospice to see her today. D/w care management and consider swing bed. Phys therapy and Occ therapy to see her when able. - Levaquin Day 2 (Continue 250 daily) - Primaxin Day 2 (Talk with pharmacy and consider adjust to 400 q 6 hours.) - Vancomycin Day 2 (Talk with pharmacy and can likely use 1250 BID dosing now) Talk w/ pharmacy. - Vanco trough to be checked - Back down on fluids to 75/hour. - CBC in am - CMP in am. - F/U with blood and urine cultures. Anemia: Hemodilution suspected. All cell lines have declined. I will back down on fluids. - CBC tomorrow. DARIUS: Resolved. GFR up to 66 from 38. CrCl [place] now 88ml/min. I will discuss with pharmacy to make sure doses of abx are adjusted to renal parameters. Hyponatremia: Chronic appearing, stable at 134.5. Continue to monitor. DM 2 A1C Goal <8.5: Glucose ssi coverage. Metformin held. She is 157.8 today and reasonable. Caution hypoglycemia. Goal for her is 150-250 for now. Diarrhea: Resolved D/C C. Diff precautions, no stools in 24 hours. Low Calcium: 8.32. Albumin 3.19. Corrects to 9.0. DVT Prophy: Continue lovenox Brain tumor: Still consider hospice eval today to discuss options. Diet: ADA 1800 kcal. Activity: Up with assist. Tobacco: Not interested in patches at present. Cessation at d/c encouraged. Dispo: Will keep another 1-2 days and consider swing bed. Phys therapy and occ therapy to evaluate. Will d/c C. Diff precautions as no stools. Continue vanco, primaxin and levaquin. Await blood culture. Consider addition of miralax if no stool in next 24 hours. >35 minutes spent with patient/family this am. Discussed case with nurse, child caregiver, reviewed new labs, overnight notes, Telemetry reviewed.
[2018-06-09] MEDS: KEPPRA PO SCH ×2 (08:45→20:19)
[2018-06-09] MEDS: OXYCONTIN PO SCH ×2 (08:45→20:19)
[2018-06-09] MEDS: ZESTRIL PO SCH ×2 (08:45→20:19)
[2018-06-09] MEDS: RISPERDAL PO SCH (08:45)
[2018-06-09] MEDS: JANUVIA PO SCH (08:45)
[2018-06-09] MEDS: COREG PO SCH ×2 (08:46→17:08)
[2018-06-09] MEDS: VANCOMYCIN 1.25 GM in SODIUM CHLORIDE 250 ML IV SCH (08:46)
[2018-06-09] MEDS: FERROUS SULFATE PO SCH ×2 (08:46→20:19)
[2018-06-09] MEDS: LOVENOX SUBCUT SCH (08:46)
[2018-06-09] MEDS: DRONABINOL 5 MG PO SCH ×2 (08:47→20:26)
[2018-06-09] MEDS: CRANBERRY FRUIT EXTRACT 425 MG PO SCH (08:47)
[2018-06-09] MEDS: LEVAQUIN 250 MG in PREMIX 50 ML D5W 1 BAG IV SCH (20:16)
[2018-06-09] MEDS: CYMBALTA PO SCH (20:18)
[2018-06-09] MEDS: LIPITOR PO SCH (20:18)
[2018-06-09] MEDS: MIRAPEX PO SCH (20:19)
[2018-06-09] MEDS: LANTUS SUBCUT SCH (20:20)
[2018-06-10] MEDS: ATROVENT 0.02% NEB NEB SCH ×4 (05:05→23:40)
[2018-06-10] MEDS: PRIMAXIN 500 MG in SODIUM CHLORIDE 100 ML IV SCH ×3 (05:55→20:39)
[2018-06-10] MEDS: LASIX TAB PO SCH (05:55)
[2018-06-10] MEDS: PEPCID PO SCH (05:56)
[2018-06-10] MEDS: SYNTHROID PO SCH (05:56)
[2018-06-10] MEDS: SODIUM CHLORIDE 0.9%-KCL 20 MEQ 1,000 ML IV SCH ×2 (05:57→13:04)
[2018-06-10] MEDS: HUMULIN R SUBCUT PRN ×3 (05:58→16:54)
--- NOTE | 2018-06-10 07:32 | PCM.PROG ---
Subjective: 72 YO Hospital day 3 w/ admission for sepsis w/ urological vs pulmonic source. Overnight cultures returned + x 2 for Stap Epi multiple drug resistant. C+S showed Gent, tulio/dalfo, rif and vanco would work. We will complete 7 day course of vancomycin. She has ESBL + in urine with multiple drug resistance as well. C+S showed ertapenem, impenem, macrobid, pip/tazo would work for her. It is my opinion that we will finish 5 days of levaquin and then we will continue primaxin and levaquin for at least [address] supports urological source more than the X-ray showed pulmonic one. Vitals have been normal for last 24, afebrile x 48. Urine output has improved drastically and she has had minimum of 1ml/kg/hour per 8 hour shift uout and max of up to 3ml/kg/hour. She has no e/of fluid overload. She has remained SR on telemetry. Overall she is doing better. I would like to consider d/c tomorrow to swing x 3 days. Vanco can be changed to BID dosing and NH can do this one but the primaxin needs to continue for a total of 7 days. Today is day 3. Tomorrow would be day 4. If we put her in swing, we could complete the course of abx in hospital and d/c back to [facility]. Notes from yesterday reviewed. She has been removed from the C.Diff precautions as no BM in hospital stay. I will add some miralax to help w / BM. ON nurse no reported issues, patient is doing better. D/w Am nurse as well. Breathing is more stable. Good uout, tolerating food, more alert/awake, more confused today. She thinks it is in 1967 in [place]. No family in room this am. REVIEW OF SYMPTOMS: (Positives bolded) General: weight loss, fever, chills, night sweats, fatigue, appetite loss HEENT: blurry vision, eye pain, eye discharge, dry eyes, decreased vision, sore throat tinnitus, bloody nose, hearing loss, sinus pain/pressure, ear pain/ pressure. Respiratory: shortness of breath, cough, hemoptysis, wheezing, pleurisy, Cardiovascular: chest pain, PND, palpitation, edema, orthopnea, syncope, swelling of extremities Gastro: Nausea, vomiting, diarrhea, hematemesis, abdominal pain, constipation Genito: hematuria, dysuria, glycosuria, hesitancy, frequency, incontinence Musckelo: Arthralgia, myalgia, muscle weakness, joint swelling, NSAID use Skin: rash, pruritis, sores, nail changes, skin thickening, change in wart/mole , Neuro: Migraine, numbness, ataxia, tremor, vertigo, weakness, memory loss, Irritability, dizziness Endocrine: excessive thirst, polyuria, cold intolerance, heat intolerance, goiter Psychiatric: depression, anxiety, anti-depressants, alcohol abuse, drug abuse, insomnia, change in sleep pattern and mood changes Heme/lymph: easy bruising, bleeding gums, blood clots, swollen glands, lymphedema, Allergic/immune: allergic rhinitis, hay fever, asthma, hives ID: Blood culture + x 2 and urine culture +. Staph Epi MDR and ESBL ECOLI MDR. Objective: Vital Signs - 24 hr 06/09/18 06/09/18 06/09/18 09:55 10:00 14:00 Temperature 98.4 F 98.7 F Pulse Rate 74 76 Respiratory 20 20 Rate Blood Pressure 128/62 126/64 O2 Sat by Pulse 93 L 97 97 Oximetry 06/09/18 06/09/18 06/10/18 18:00 22:00 05:30 Temperature 98.4 F 97.9 F 98.2 F Pulse Rate 78 79 80 Respiratory 20 18 16 Rate Blood Pressure 128/69 132/73 137/69 O2 Sat by Pulse 97 96 100 Oximetry Constitutional: Appearance- improving daily. Skin tears UE w/ bandages in place. numerous ecchymosis and e/o skin breakdown bilateral UE. Reactive to tape, easily torn skin, thin. She is sitting in bedside chair. She is still not in any acute resp or physical distress, Appears Older than stated age. Orientation- oriented to name/hospital, but not aware of city, time conversant and pleasant to conversation. Build and Nutrition-Obese female General- Patient is awake, alert, follows commands. Integumentary: General-No e/o infectious rash. Numerous medium ecchymoses bilateral UE. Palpation- Normal radial pulse, cap refil bilateral UE and LE. Toenail onychomycosis. Thin skin. #2 sacral/buttock decub ulcers present from AL. protected barriers in place, rolling parameters in place. Skin tear left forearm healing, has bandage in place. Head/Neck: Head- normocephalic and atraumatic. Neck- without visible/palpable lumps or pulsations. Palpation- No bony tenderness about head/neck along frontal, occipital, temporal, parietal, mastoid, jawline, zygoma, orbit or any other location. NO temporal artery tenderness. No TMJ tenderness. Neck Supple. Eye: Reactive to light, accomodation, equal/round. Opened eyes to command. Normal extraoccular motions. PERRLA. ENMT: Nose and sinus- No sinus tenderness along frontal/maxillary region. External appearance normal and midline. Nares- bilateral quiet airflow,clear discharge. Nasal mucosa- No bleeding noted and no ulcerations observed. Erythematous Turbinates boggy. Lips- normal color, moist without cracks/lesions Oral Cavity/Palate- hard/soft palate intact without lesions, oral mucosa pink and moist. Tongue normal midline. Black hairy tongue. Dentures uppers. Oropharynx- no pharyngeal erythema, Uvula midline. No post nasal drip. No exudate. Salivary glands- Non tender to palpation CHEST/LUNG:Auscultation- Breath coarse and distant throughout all lung menon. NO accessory muscle usage. Tracheal sounds, bronchial sounds overlying sternum, Bronchovessicular sounds between scapulae posteriorly, vessicular breath sounds heard throughout periphery coarse and mucoid. These are better, better protection of airway, clearing secretions on own. Regular neb treatments are given. Adventitious sounds- wheezes, rales, rhonchi throughout. This is better /more stable and seems to be at baseline. No coughing, she is improving/ stable. CARDIOVASCULAR: Palpation/Percussion- Normal PMI, no palpable thrill Auscultation- Regular rate and rhythm. No murmur noted but still difficult to auscultate over pulmonic sounds. ABDOMEN: Inspection- Auscultation- Bowel sounds normal, no abdominal bruits. Palpation/Percussion- soft, nontender, no rebound tenderness, no rigidity ( guarding), no jar tenderness, no masses. Peripheral Vascular: Upper extremity Left- Normal temperature with pink nailbeds and no ulcerations. Upper extremity Right- Normal temperature with pink nailbeds and no ulcerations. Lower extremity- Normal temperature with pink nailbeds and no ulcerations. DP pulses 2+ bilaterally. Normal capillary refill. Normal pulses. Edema- No edema. Musculoskeletal:Moves all 4. [employer] 5/5. Hip flexion 5/5. Bicep flexion 5/5. Tricep 5/5. Str and movement seem okay. Will get phys therapy to evaluate ambulation. Neurological: General- Moves all 4 extremities symmetrically. Reflexes 1+ and symmetrical patellar, achilles, bicep. Followed commands. Now GCS 15. Pysch: Confused, thinks it is 1968 [place], no c/o. Blood culture + Staph Epi MDR Urine Culture + ESBL MDR Levaquin Day 3 Primaxin Day 3 Vancom Day 3. Laboratory Last Values WBC 5.22 K/ul (4.6-10.2) 06/10/18 07:25 RBC 3.10 10^6/ul (4.20-5.40) L 06/10/18 07:25 Hgb 10.0 g/dl (12.0-16.0) L 06/10/18 07:25 Hct 29.7 % (37.0-47.0) L 06/10/18 07:25 MCV 95.8 fl (81.0-99.0) 06/10/18 07:25 MCH 32.3 pg (27.0-31.0) H 06/10/18 07:25 MCHC 33.7 (31.8-35.4) 06/10/18 07:25 RDW Coeff of Amanda 13.4 % (11.6-14.8) 06/10/18 07:25 Plt Count 143 10^3/uL (140-440) 06/10/18 07:25 Immature Gran % (Auto) 1.1 % (0.0-5.0) 06/10/18 07:25 Neut % (Auto) 69.8 06/10/18 07:25 Lymph % (Auto) 18.0 (10.0-50.0) 06/10/18 07:25 Morrison % (Auto) 9.0 (0-10) 06/10/18 07:25 Eos % (Auto) 1.7 % (0.0-7.0) 06/10/18 07:25 Baso % (Auto) 0.4 % (0.0-3.0) 06/10/18 07:25 Immature Gran # (Auto) 0.1 (0.0-1.0) 06/10/18 07:25 Neut # (Auto) 3.6 K/ul (2.0-6.9) 06/10/18 07:25 Lymph # (Auto) 0.9 K/uL (0.60-3.4) 06/10/18 07:25 Morrison # (Auto) 0.5 K/uL (0.4-2.0) 06/10/18 07:25 Eos # (Auto) 0.1 K/ul (0.0-0.7) 06/10/18 07:25 Baso # (Auto) 0.0 K/uL (0-0.2) 06/10/18 07:25 Neutrophils % (Manual) 72.0 % (42.2-75.2) 06/09/18 04:30 Band Neutrophils % 2.0 % (0.0-5.0) 06/09/18 04:30 Lymphocytes % (Manual) 18.0 % (10.0-50.0) 06/09/18 04:30 Monocytes % (Manual) 8.0 % (0.0-10.0) 06/09/18 04:30 Eosinophils % (Manual) 1.0 % (0.0-5.0) 06/08/18 05:20 Metamyelocytes % 2.0 % (0.0-2.0) 06/08/18 05:20 Anisocytosis Not present (NOT PRESENT) 06/09/18 04:30 Puncture Site L rad 06/07/18 22:10 O2 Saturation 92.0 % (95-100) L 06/07/18 22:10 ABG pH 7.439 (7.35-7.45) 06/07/18 22:10 ABG pCO2 36.6 mmHg (35-45) 06/07/18 22:10 ABG pO2 61.0 mmHg (85-100) L 06/07/18 22:10 ABG HCO3 24.8 (22.0-26.0) 06/07/18 22:10 ABG Total CO2 26 (22.0-28.0) 06/07/18 22:10 ABG Base Excess 1 (-2.0-2.0) 06/07/18 22:10 Param Test + 06/07/18 22:10 FiO2 % 2.0 % 06/07/18 22:10 Sodium 134.9 mmol/L (137-145) L 06/10/18 07:25 Potassium 4.03 mmol/L (3.5-5.1) 06/10/18 07:25 Chloride 102.1 mmol/L (98-107) 06/10/18 07:25 Carbon Dioxide 30.1 mmol/L (22-30.0) H 06/10/18 07:25 Anion Gap 6.73 06/10/18 07:25 BUN 11.8 mg/dL (7-17) 06/10/18 07:25 Creatinine 0.76 mg/dL (0.60-1.30) 06/10/18 07:25 Estimated GFR (MDRD) 75.00 mL/min 06/10/18 07:25 BUN/Creatinine Ratio 15.52 06/10/18 07:25 Glucose 174.8 mg/dL (74-106) H 06/10/18 07:25 Lactic Acid 1.16 mmol/L (0.7-2.1) 06/07/18 22:20 Calcium 8.80 mg/dL (8.4-10.2) 06/10/18 07:25 Total Bilirubin 0.35 mg/dL (0.2-1.3) 06/10/18 07:25 AST 44.8 U/L (14-36) H 06/10/18 07:25 ALT 32.7 U/L (0-35) 06/10/18 07:25 Alkaline Phosphatase 157.4 U/L (53-141) H D 06/10/18 07:25 Total Creatine Kinase 32.3 U/L (30-135) 06/07/18 22:20 Troponin I 0.020 ng/ml (0.0000-0.120) 06/07/18 22:20 Total Protein 6.38 g/dL (6.3-8.2) 06/10/18 07:25 Albumin 3.16 g/dL (3.5-5.0) L 06/10/18 07:25 Globulin 3.22 06/10/18 07:25 Albumin/Globulin Ratio 0.98 06/10/18 07:25 Procalcitonin 0.84 ng/mL (0.09) 06/07/18 22:20 Urine Color Yellow (YELLOW) 06/08/18 03:41 Urine Clarity Turbid (CLEAR) 06/08/18 03:41 Urine pH 6.0 (5-9) 06/08/18 03:41 Ur Specific [place] 1.015 (1.005-1.030) 06/08/18 03:41 Urine Protein 2+ (NEGATIVE) 06/08/18 03:41 Urine Glucose (UA) Negative (NEGATIVE) 06/08/18 03:41 Urine Ketones Negative (NEGATIVE) 06/08/18 03:41 Urine Blood 2+ (NEGATIVE) 06/08/18 03:41 Urine Nitrite Positive (NEGATIVE) 06/08/18 03:41 Urine Bilirubin Negative (NEGATIVE) 06/08/18 03:41 Urine Urobilinogen 0.2 (0.2) 06/08/18 03:41 Ur Leukocyte Esterase 2+ (NEGATIVE) 06/08/18 03:41 Urine Microscopic RBC 5-10 (0-2) 06/08/18 03:41 Urine Microscopic WBC Tntc (0-2) 06/08/18 03:41 Ur Squamous Epith Cells 5-10 (0-5) 06/08/18 03:41 Urine Bacteria 2+ (NOT PRESENT) 06/08/18 03:41 Urine Mucus 1+ (NOT PRESENT) 06/08/18 03:41 Influ A Molecular Assay Negative by naat (NEGATIVE) 06/07/18 22:04 Influ B Molecular Assay Negative by naat (NEGATIVE) 06/07/18 22:04 (1) DARIUS (acute kidney injury) Status: Resolved Code(s): N17.9 - ACUTE KIDNEY FAILURE, UNSPECIFIED SNOMED Code(s): 46601443 (2) Light smoker Status: Chronic (3) Pneumonia Status: Acute Code(s): J18.9 - PNEUMONIA, UNSPECIFIED ORGANISM SNOMED Code(s ): 955723459 (4) COPD (chronic obstructive pulmonary disease) Status: Chronic Code(s): J44.9 - CHRONIC OBSTRUCTIVE PULMONARY DISEASE, UNSPECIFIED SNOMED Code(s): 96786004 (5) Dehydration Status: Resolved Code(s): E86.0 - DEHYDRATION SNOMED Code(s): 35662075 (6) SIRS (systemic inflammatory response syndrome) Status: Acute Code(s): R65.10 - SIRS OF NON-INFECTIOUS ORIGIN W/O ACUTE ORGAN DYSFUNCTION SNOMED Code(s): 968107432 (7) Type 2 diabetes mellitus with hemoglobin A1c goal of less than 8.5% Status: Chronic Code(s): E11.9 - TYPE 2 DIABETES MELLITUS WITHOUT COMPLICATIONS SNOMED Code(s): 84904654 (8) Hyponatremia Status: Chronic Code(s): E87.1 - HYPO-OSMOLALITY AND HYPONATREMIA SNOMED Code(s): 86128604 (9) End stage COPD Status: Chronic Code(s): J44.9 - CHRONIC OBSTRUCTIVE PULMONARY DISEASE, UNSPECIFIED SNOMED Code(s): 765403501 (10) Brain tumor Status: Chronic Code(s): D49.6 - NEOPLASM OF UNSPECIFIED BEHAVIOR OF BRAIN SNOMED Code(s): 444239587 (11) Confusion Status: Acute Code(s): R41.0 - DISORIENTATION, UNSPECIFIED SNOMED Code(s): 829484317 (12) Abdominal pain Status: Acute Code(s): R10.9 - UNSPECIFIED ABDOMINAL PAIN SNOMED Code(s): 34314280 (13) Decubitus ulcer Status: Acute Code(s): L89.90 - PRESSURE ULCER OF UNSPECIFIED SITE, UNSPECIFIED STAGE SNOMED Code(s): 981560203 Plan: SIRS W/ Sepsis Urological vs pulmonic source: Blood culture and Urine culture are positive. I will finish 5 days of levaquin to finish w/u for pneumonia but Urine and Blood culture are resistant to that agent. I will Complete 7 day course of primaxin, which will cover the ESBL and the vancomycin, which should cover the staph Epi in blood. In total we will complete 7 days of abx with 5 days levaquin and coverage for pneumonia, 7 days coverage for potential urological source. Literature suggests blood culture + does not suggest worse outcome. Some studies suggest that 7 days is adequate and others 10-14. I will talk with family about their Swing Bed potential. If needed I can give Invanz 1 gram IM daily x 5 days to cover the remainder of the primaxin and continue IV vancomycin. Will discuss with pharmacy to see if this is possible. NO repeat labs this am. I have ordered CBC/CMP to make sure dilution is not worsening. Tele in place and reviewed and SR. No concerning rhythms. She has been afebrile x 48 hours AAOX3 now and in no pain. She is markedly improved from admit. Continue abx. Hospice to see her at d/c. D/w care management and consider swing bed. Consider adjust abx. Phys therapy and Occ therapy have seen her. - Levaquin Day 3 (Continue 250 daily) - Primaxin Day 3 - Vancomycin Day 3 Increase to 1 Gram BID dosing. - Vanco trough to be checked - CBC in am - CMP in am. - F/U with blood and urine cultures. Anemia: Hemodilution suspected. All cell lines had declined yesterday. Improved today to 10.0 - CBC tomorrow DARIUS: Resolved. GFR up to 77 and baseline. Monitor. Hyponatremia: Chronic appearing, stable at 134.5. Continue to monitor. - CMP today. DM 2 A1C Goal <8.5: Glucose ssi coverage. Metformin held. Goal for her is 150- 250 for now. Diarrhea: Resolved Low Calcium: RESOLVED> Elevated alk phos: CMP tomorrow DVT Prophy: Continue lovenox Brain tumor: Still consider hospice eval today to discuss options. Diet: ADA 1800 kcal. Activity: Up with assist. Tobacco: Not interested in patches at present. Cessation at d/c encouraged. Dispo: Will D/w care team about keeping another 1-2 days and consider swing bed. If not interested in swing, I can change levaquin to PO, Change primaxin to invanz and use this daily and then continue vancomycin BID IV. Phys therapy and occ therapy evaluated. Continue vanco, primaxin and levaquin for today. Talked with nursing about BM. Wait to talk with family, discuss options as listed above. >35 minutes spent with patient/family this am. Discussed case with nurse, director of managed care, reviewed new labs, overnight notes, Telemetry reviewed.
[2018-06-10] MEDS: DRONABINOL 5 MG PO SCH ×2 (08:37→21:59)
[2018-06-10] MEDS: CRANBERRY FRUIT EXTRACT 425 MG PO SCH (08:37)
[2018-06-10] MEDS: VANCOMYCIN 1 GM in SODIUM CHLORIDE 250 ML IV SCH ×2 (08:43→22:57)
[2018-06-10] MEDS: LOVENOX SUBCUT SCH (08:44)
[2018-06-10] MEDS: RISPERDAL PO SCH (08:44)
[2018-06-10] MEDS: ZESTRIL PO SCH ×2 (08:44→20:38)
[2018-06-10] MEDS: FERROUS SULFATE PO SCH ×2 (08:45→20:38)
[2018-06-10] MEDS: JANUVIA PO SCH (08:45)
[2018-06-10] MEDS: OXYCONTIN PO SCH ×2 (08:45→20:38)
[2018-06-10] MEDS: COREG PO SCH ×2 (08:45→16:49)
[2018-06-10] MEDS: KEPPRA PO SCH ×2 (08:45→20:39)
[2018-06-10] MEDS: MIRAPEX PO SCH (20:37)
[2018-06-10] MEDS: CYMBALTA PO SCH (20:38)
[2018-06-10] MEDS: LIPITOR PO SCH (20:38)
[2018-06-10] MEDS: LANTUS SUBCUT SCH (20:39)
[2018-06-10] MEDS: LEVAQUIN 250 MG in PREMIX 50 ML D5W 1 BAG IV SCH (22:03)
[2018-06-11] MEDS: ATROVENT 0.02% NEB NEB SCH ×4 (05:05→23:25)
[2018-06-11] MEDS: SODIUM CHLORIDE 0.9%-KCL 20 MEQ 1,000 ML IV SCH ×2 (05:52→22:26)
[2018-06-11] MEDS: PRIMAXIN 500 MG in SODIUM CHLORIDE 100 ML IV SCH (05:52)
[2018-06-11] MEDS: LASIX TAB PO SCH (05:53)
[2018-06-11] MEDS: SYNTHROID PO SCH (05:53)
[2018-06-11] MEDS: PEPCID PO SCH (05:53)
--- NOTE | 2018-06-11 07:29 | PCM.PROG ---
Subjective: 72 yr old hospital day 4 suspected urosepsis/pneumonia, abx day 4 IV levaquin day 11/14, IV primaxin day 11/16, IV vanco day 11/16. She has had confusion up and down, yesterday she thought she was in s [place]. Last night some sun downing and some worsening delirium. I had mentioned swing bed to family. I would like to try to get all of the days of IV abx. Reviewed labs. Hemodilution is present. WBC from 5.22 to 4.45, hgb 10 to 8.9, plt 143 to 139. Alk phos bumped yesterday to 157.4 and then dropped back to 130.5 today. Albumin continues to declined. Nutrition has seen her and recommended boost/ ensure. Glucose measured and moniotred. 316, 265, 190, 229, 180, 142. Urine output measured and 1.18 ml/kg/hr, 0.42ml/kg/hr and 0.8ml/kg/hr over last three 8 hour shits. No BM thus far, will talk to nursing this am about regimen. We discussed yesterday apple/prune/molasses mixture, we discussed supp and we discussed miralax vs mag citrate. Plan for now is d/c to swing today to complete jail, Phys therapy and Occ therapy. Worsening cognition, agitation. "THey are trying to kill me." I asked who and she said "my doctors. " "HANNAH" yelled multiple times. Per nursing she has had worsening cognition over past 24 hours. Consulted a colleague who recommended echocardiogram based on posibble staph in blood. History disjointed, provided minimally by patient and some by patient daughter. At this time delirium is present. REVIEW OF SYMPTOMS: (Positives bolded) General: weight loss, fever, chills, night sweats, fatigue, appetite loss ( No fever in 2 days) HEENT: blurry vision, eye pain, eye discharge, dry eyes, decreased vision, sore throat tinnitus, bloody nose, hearing loss, sinus pain/pressure, ear pain/ pressure. Respiratory: shortness of breath, cough, hemoptysis, wheezing, pleurisy, Cardiovascular: chest pain, PND, palpitation, edema, orthopnea, syncope, swelling of extremities Gastro: Nausea, vomiting, diarrhea, hematemesis, abdominal pain, constipation Genito: hematuria, dysuria, glycosuria, hesitancy, frequency, incontinence Musckelo: Arthralgia, myalgia, muscle weakness, joint swelling, NSAID use Skin: rash, pruritis, sores, nail changes, skin thickening, change in wart/mole , pruritus, nail changes Neuro: Migraine, numbness, ataxia, tremor, vertigo, weakness, memory loss, Irritability, dizziness Endocrine: excessive thirst, polyuria, cold intolerance, heat intolerance, goiter Psychiatric: depression, anxiety, anti-depressants, alcohol abuse, drug abuse, insomnia, change in sleep pattern Delerium Heme/lymph: easy bruising, bleeding gums, blood clots, swollen glands, lymphedema, Allergic/immune: allergic rhinitis, hay fever, asthma, hives Objective: Vital Signs - 24 hr 06/10/18 06/10/18 06/10/18 09:59 13:56 17:24 Temperature 98.4 F 98.6 F 98.7 F Pulse Rate 90 84 84 Respiratory 20 14 22 Rate Blood Pressure 128/73 136/73 140/74 O2 Sat by Pulse 92 L 95 97 Oximetry 06/10/18 06/11/18 22:00 06:00 Temperature 98.8 F 97.8 F Pulse Rate 84 80 Respiratory 20 24 Rate Blood Pressure 132/64 140/69 O2 Sat by Pulse 98 100 Oximetry Constitutional: Appearance-Ill appearing, health kauffman improving, mood/ cognition worse. Still w/ numerous tears/ecchymosesto upper extremities, left has bandages in place. numerous ecchymosis and e/o skin breakdown. Reactive to tape, easily torn skin, thin. She is resting supine, awake conversant, which is new compared to yesterday. She is still not in any acute resp or physical distress, Appears Older than stated age. Orientation- She knows she is in hospital, unable to provide date/time. Agitated. Build and Nutrition-[Obese female] General- Patient is awake, sitting on bedside chair. Integumentary: General-No e/o infectious rash. Numerous small to medium ecchymoses bilateral UE. Palpation- Normal radial pulse, cap refill bilateral UE and LE. Toenail onychomycosis. Thin skin. #2 sacral/buttock decub ulcers present from NH. These are stable, appropriate care taken. Head/Neck: Head- normocephalic and atraumatic. Neck- without visible/palpable lumps or pulsations. Palpation- No bony tenderness about head/neck along frontal, occipital, temporal, parietal, mastoid, jawline, zygoma, orbit or any other location. NO temporal artery tenderness. No TMJ tenderness. Neck Supple. Eye: Reactive to light, accommodation, equal/round. Opened eyes to command. Normal extraoccular motions. PERRLA. ENMT: Nose and sinus- No sinus tenderness along frontal/maxillary region. External appearance normal and midline. Nares- bilateral quiet airflow,clear discharge. Nasal mucosa- No bleeding noted and no ulcerations observed. Erythematous Turbinates boggy. Lips- normal color, moist without cracks/lesions Oral Cavity/Palate- hard/soft palate intact without lesions, oral mucosa pink and moist. Tongue normal midline. Dentures uppers. Oropharynx- no pharyngeal erythema, Uvula midline. No post nasal drip. No exudate. Salivary glands- Non tender to palpation CHEST/LUNG:Auscultation- Breath coarse and distant throughout all lung menon. NO accessory muscle usage. Normal tracheal sounds, bronchial sounds overlying sternum, Bronchovessicular sounds between scapulae posteriorly, vessicular breath sounds heard throughout periphery coarse and mucoid. These are better, better protection of airway, clearing secretions on own. Regular neb treatments are given. Adventitious sounds- wheezes, rales, rhonchi throughout. This is now at baseline. CARDIOVASCULAR: Palpation/Percussion- Normal PMI, no palpable thrill Auscultation- Regular rate and rhythm. No murmur noted but still difficult to auscultate over pulmonic sounds. ABDOMEN: Inspection- Auscultation- Bowel sounds normal, no abdominal bruits. Palpation/Percussion- soft, nontender, no rebound tenderness, no rigidity ( guarding), no jar tenderness, no masses. Peripheral Vascular: Upper extremity Left- Normal temperature with pink nailbeds and no ulcerations. Upper extremity Right- Normal temperature with pink nailbeds and no ulcerations. Lower extremity- Normal temperature with pink nailbeds and no ulcerations. DP pulses 2+ bilaterally. Normal capillary refill. Normal pulses. Edema- No edema. Musculoskeletal:Moving all 4. Walking, no calf assymetry Str and movement seem okay. Therapy following. Neurological: General- Moves all 4 extremities symmetrically. Reflexes 1+ and symmetrical patellar, achilles, bicep. Followed commands. Neuropsych: Oriented Fully now. Person, place or time. (AAOx3), Still mildly Confused. Some retro amnesia over past 1 week. Brain imaging evaluated and no acute process. Infection seems to be resolving. She is more alert, awake. Pleasant. No SI/HI. Mood stable. Laboratory Last Values WBC 4.45 K/ul (4.6-10.2) L 06/11/18 05:00 RBC 2.78 10^6/ul (4.20-5.40) L 06/11/18 05:00 Hgb 8.9 g/dl (12.0-16.0) L 06/11/18 05:00 Hct 26.5 % (37.0-47.0) L 06/11/18 05:00 MCV 95.3 fl (81.0-99.0) 06/11/18 05:00 MCH 32.0 pg (27.0-31.0) H 06/11/18 05:00 MCHC 33.6 (31.8-35.4) 06/11/18 05:00 RDW Coeff of Amanda 13.3 % (11.6-14.8) 06/11/18 05:00 Plt Count 139 10^3/uL (140-440) L 06/11/18 05:00 Immature Gran % (Auto) 1.1 % (0.0-5.0) 06/11/18 05:00 Neut % (Auto) 65.0 06/11/18 05:00 Lymph % (Auto) 20.9 (10.0-50.0) 06/11/18 05:00 Smyth % (Auto) 10.6 (0-10) H 06/11/18 05:00 Eos % (Auto) 2.0 % (0.0-7.0) 06/11/18 05:00 Baso % (Auto) 0.4 % (0.0-3.0) 06/11/18 05:00 Immature Gran # (Auto) 0.1 (0.0-1.0) 06/11/18 05:00 Neut # (Auto) 2.9 K/ul (2.0-6.9) 06/11/18 05:00 Lymph # (Auto) 0.9 K/uL (0.60-3.4) 06/11/18 05:00 Smyth # (Auto) 0.5 K/uL (0.4-2.0) 06/11/18 05:00 Eos # (Auto) 0.1 K/ul (0.0-0.7) 06/11/18 05:00 Baso # (Auto) 0.0 K/uL (0-0.2) 06/11/18 05:00 Neutrophils % (Manual) 72.0 % (42.2-75.2) 06/09/18 04:30 Band Neutrophils % 2.0 % (0.0-5.0) 06/09/18 04:30 Lymphocytes % (Manual) 18.0 % (10.0-50.0) 06/09/18 04:30 Monocytes % (Manual) 8.0 % (0.0-10.0) 06/09/18 04:30 Eosinophils % (Manual) 1.0 % (0.0-5.0) 06/08/18 05:20 Metamyelocytes % 2.0 % (0.0-2.0) 06/08/18 05:20 Anisocytosis Not present (NOT PRESENT) 06/09/18 04:30 Puncture Site L rad 06/07/18 22:10 O2 Saturation 92.0 % (95-100) L 06/07/18 22:10 ABG pH 7.439 (7.35-7.45) 06/07/18 22:10 ABG pCO2 36.6 mmHg (35-45) 06/07/18 22:10 ABG pO2 61.0 mmHg (85-100) L 06/07/18 22:10 ABG HCO3 24.8 (22.0-26.0) 06/07/18 22:10 ABG Total CO2 26 (22.0-28.0) 06/07/18 22:10 ABG Base Excess 1 (-2.0-2.0) 06/07/18 22:10 Param Test + 06/07/18 22:10 FiO2 % 2.0 % 06/07/18 22:10 Sodium 136.6 mmol/L (137-145) L 06/11/18 05:00 Potassium 3.60 mmol/L (3.5-5.1) 06/11/18 05:00 Chloride 103.8 mmol/L (98-107) 06/11/18 05:00 Carbon Dioxide 29.9 mmol/L (22-30.0) 06/11/18 05:00 Anion Gap 6.50 06/11/18 05:00 BUN 9.4 mg/dL (7-17) 06/11/18 05:00 Creatinine 0.66 mg/dL (0.60-1.30) 06/11/18 05:00 Estimated GFR (MDRD) 89.00 mL/min 06/11/18 05:00 BUN/Creatinine Ratio 14.24 06/11/18 05:00 Glucose 129.8 mg/dL (74-106) H 06/11/18 05:00 Lactic Acid 1.16 mmol/L (0.7-2.1) 06/07/18 22:20 Calcium 8.33 mg/dL (8.4-10.2) L 06/11/18 05:00 Total Bilirubin 0.31 mg/dL (0.2-1.3) 06/11/18 05:00 AST 25.1 U/L (14-36) 06/11/18 05:00 ALT 22.6 U/L (0-35) 06/11/18 05:00 Alkaline Phosphatase 130.5 U/L (53-141) D 06/11/18 05:00 Total Creatine Kinase 32.3 U/L (30-135) 06/07/18 22:20 Troponin I 0.020 ng/ml (0.0000-0.120) 06/07/18 22:20 Total Protein 5.62 g/dL (6.3-8.2) L 06/11/18 05:00 Albumin 2.75 g/dL (3.5-5.0) L 06/11/18 05:00 Globulin 2.87 06/11/18 05:00 Albumin/Globulin Ratio 0.95 06/11/18 05:00 Procalcitonin 0.84 ng/mL (0.09) 06/07/18 22:20 Urine Color Yellow (YELLOW) 06/08/18 03:41 Urine Clarity Turbid (CLEAR) 06/08/18 03:41 Urine pH 6.0 (5-9) 06/08/18 03:41 Ur Specific [place] 1.015 (1.005-1.030) 06/08/18 03:41 Urine Protein 2+ (NEGATIVE) 06/08/18 03:41 Urine Glucose (UA) Negative (NEGATIVE) 06/08/18 03:41 Urine Ketones Negative (NEGATIVE) 06/08/18 03:41 Urine Blood 2+ (NEGATIVE) 06/08/18 03:41 Urine Nitrite Positive (NEGATIVE) 06/08/18 03:41 Urine Bilirubin Negative (NEGATIVE) 06/08/18 03:41 Urine Urobilinogen 0.2 (0.2) 06/08/18 03:41 Ur Leukocyte Esterase 2+ (NEGATIVE) 06/08/18 03:41 Urine Microscopic RBC 5-10 (0-2) 06/08/18 03:41 Urine Microscopic WBC Tntc (0-2) 06/08/18 03:41 Ur Squamous Epith Cells 5-10 (0-5) 06/08/18 03:41 Urine Bacteria 2+ (NOT PRESENT) 06/08/18 03:41 Urine Mucus 1+ (NOT PRESENT) 06/08/18 03:41 Influ A Molecular Assay Negative by naat (NEGATIVE) 06/07/18 22:04 Influ B Molecular Assay Negative by naat (NEGATIVE) 06/07/18 22:04 WBC Trends 06/07/18 06/08/18 06/09/18 Range/Units 22:20 05:20 04:30 WBC 7.81 6.41 5.45 (4.6-10.2) K/ul 06/10/18 06/11/18 Range/Units 07:25 05:00 WBC 5.22 4.45 L (4.6-10.2) K/ul BUN/CR Trends 06/07/18 06/08/18 06/09/18 Range/Units 22:20 05:20 04:30 BUN 22.9 H 22.3 H 14.7 (7-17) mg/dL Creatinine 1.37 H 1.21 0.85 (0.60-1.30) mg/dL 06/10/18 06/11/18 Range/Units 07:25 05:00 BUN 11.8 9.4 (7-17) mg/dL Creatinine 0.76 0.66 (0.60-1.30) mg/dL (1) ESBL (extended spectrum beta-lactamase) producing bacteria infection Status: Acute Code(s): A49.9 - BACTERIAL INFECTION, UNSPECIFIED; Z16.12 - EXTENDED SPECTRUM BETA LACTAMASE (ESBL) RESISTANCE SNOMED Code(s): 605675333 (2) DARIUS (acute kidney injury) Status: Resolved Code(s): N17.9 - ACUTE KIDNEY FAILURE, UNSPECIFIED SNOMED Code(s): 46215977 (3) Light smoker Status: Chronic (4) Pneumonia Status: Acute Code(s): J18.9 - PNEUMONIA, UNSPECIFIED ORGANISM SNOMED Code(s ): 228354605 (5) COPD (chronic obstructive pulmonary disease) Status: Chronic Code(s): J44.9 - CHRONIC OBSTRUCTIVE PULMONARY DISEASE, UNSPECIFIED SNOMED Code(s): 44847528 (6) Dehydration Status: Resolved Code(s): E86.0 - DEHYDRATION SNOMED Code(s): 34265822 (7) SIRS (systemic inflammatory response syndrome) Status: Acute Code(s): R65.10 - SIRS OF NON-INFECTIOUS ORIGIN W/O ACUTE ORGAN DYSFUNCTION SNOMED Code(s): 002727684 (8) Type 2 diabetes mellitus with hemoglobin A1c goal of less than 8.5% Status: Chronic Code(s): E11.9 - TYPE 2 DIABETES MELLITUS WITHOUT COMPLICATIONS SNOMED Code(s): 62763105 (9) Hyponatremia Status: Chronic Code(s): E87.1 - HYPO-OSMOLALITY AND HYPONATREMIA SNOMED Code(s): 92497332 (10) End stage COPD Status: Chronic Code(s): J44.9 - CHRONIC OBSTRUCTIVE PULMONARY DISEASE, UNSPECIFIED SNOMED Code(s): 181973955 (11) Brain tumor Status: Chronic Code(s): D49.6 - NEOPLASM OF UNSPECIFIED BEHAVIOR OF BRAIN SNOMED Code(s): 122807889 (12) Confusion Status: Acute Code(s): R41.0 - DISORIENTATION, UNSPECIFIED SNOMED Code(s): 685409599 (13) Abdominal pain Status: Acute Code(s): R10.9 - UNSPECIFIED ABDOMINAL PAIN SNOMED Code(s): 02736422 (14) Decubitus ulcer Status: Acute Code(s): L89.90 - PRESSURE ULCER OF UNSPECIFIED SITE, UNSPECIFIED STAGE SNOMED Code(s): 998464171 (15) Delirium Status: Acute Code(s): R41.0 - DISORIENTATION, UNSPECIFIED SNOMED Code(s): 9745268 Plan: SIRS W/ Sepsis Urological vs pulmonic source: Remains Afebrile, WBC stable and now SIRS resolved. We will continue vanco, levaquin and primaxin. I will stop levaquin day 5 (tomorrow) and continue other meds for total of 7 days. We will change the primaxin to invanz 1 gram daily IV. She has been afebrile 48 hours, awake but not alert, delirious. Hanks in place. Tele in place and reviewed and SR/SR w/ BBB. No concerning rhythms. No pain. She has improved but mentation is worse when daughter not around. She is much more rational with daughter here. Continue abx. Hospice referral when back at [facility]. - Echocardiogram ordered. - D/C swing tomorrow. - Phys therapy and Occ therapy to see her when able. - Levaquin Day 11/14 (Continue 250 daily one more day) - Primaxin Day 11/16 STOP. - Invanz IV Day 08/15. Stop this on same day as day 7 of vanco. - Vancomycin Day 11/16 BID dosing for another 3 days. - Vanco trough to be checked - Continue fluids to 75/hour. - CBC in am - CMP in am. - F/U with blood and urine cultures. Anemia: Continue to monitor - CBC tomorrow. DARIUS: Resolved. Monitor Hyponatremia: Chronic appearing, stable. Continue to monitor. Hospital delirium: Haldol 0.5mg IM Q12 PRN. R/B/A this d/w patient daughter POA. DM 2 A1C Goal <8.5: Glucose ssi coverage. Metformin held. She is 157.8 today and reasonable. Caution hypoglycemia. Goal for her is 150-250 for now. Diarrhea: Resolved No stool in hospital. Low Calcium: Resolved. DVT Prophy: Continue lovenox Brain tumor: Still consider hospice eval to discuss options. Diet: ADA 1800 kcal. Activity: Up with assist. Tobacco: Not interested in patches at present. Cessation at d/c encouraged. Dispo: Will keep overnight, swing bed tomorrow. Suspect d/c swing saturday back to [facility]. Phys therapy and occ therapy evaluated her. Will d/c C. Diff precautions as no stools. Continue vanco, change primaxin to invanz and finish last day of levaquin. Bowel regimen d/w daughter. Returned to talk with daughter at 11 o'clock and she agreed with above. Delirium present, went with this with grandmother. R/B/A to haldol d/w with her. We will see if this helps. >35 minutes spent with patient/family this am. Discussed case with nurse, patient care secretary, reviewed new labs, overnight notes, Telemetry reviewed.
[2018-06-11] MEDS: FERROUS SULFATE PO SCH ×2 (08:18→21:26)
[2018-06-11] MEDS: ZESTRIL PO SCH ×2 (08:18→21:27)
[2018-06-11] MEDS: RISPERDAL PO SCH (08:18)
[2018-06-11] MEDS: KEPPRA PO SCH ×2 (08:18→21:26)
[2018-06-11] MEDS: JANUVIA PO SCH (08:18)
[2018-06-11] MEDS: COREG PO SCH ×2 (08:18→17:02)
[2018-06-11] MEDS: OXYCONTIN PO SCH ×2 (08:19→21:26)
[2018-06-11] MEDS: CRANBERRY FRUIT EXTRACT 425 MG PO SCH (08:19)
[2018-06-11] MEDS: DRONABINOL 5 MG PO SCH ×2 (08:19→22:25)
[2018-06-11] MEDS: LOVENOX SUBCUT SCH (08:23)
[2018-06-11] MEDS: VANCOMYCIN 1 GM in SODIUM CHLORIDE 250 ML IV SCH ×2 (08:37→21:27)
[2018-06-11] MEDS: HUMULIN R SUBCUT PRN (11:21)
[2018-06-11] MEDS ORDERED: HALDOL IM PRN (11:43)
[2018-06-11] MEDS: INVANZ 1 GM in SODIUM CHLORIDE 50 ML IV SCH (12:20)
--- NOTE | 2018-06-11 13:44 | ECHO2D ---
Date of Exam: 06/11/18 Ordering Physician: DR. JR CRONIN Room #: 114 Reason for Echo: POSITIVE BLOOD CULTURES, SOB, SEPSIS M-Mode Normal Adult Results LV Dimensions Normal Adult Results AoV Opening excursions >1.6 1.6 LVEDD-base- 3.5-5.8 5.0 Ao root dimensions 2.0-3.7 3.2 LVESD-base- 3.1-4.6 L. Atrium dimensions 1.9-3.8 3.5 Post. Wall thickness 0.8-1.1 1.1 IV septum (thickness) 0.7-1.2 1.1 Post. Wall excursion 0.72-1.3 NORMAL Septal motion NORMAL Systolic motion R. Ventricular cavity 1.5-2.0 NORMAL LVEF 60% 53% Paradoxical septal wall motion NORMAL 2-D : NORMAL LEFT VENTRICULAR CONTRACTILITY--VALVES NORMAL--NO EFFUSION, NO THROMBUS--NORMAL LEFT VENTRICLE AND LEFT ATRIAL SIZE M-MODE: MV: NORMAL AV: NORMAL TV: NORMAL PV: CHAMBER SIZE: NORMAL WALL MOTION: NORMAL PERICARDIUM: NORMAL INTERPRETATION: 1. NO ECHOGENIC AREAS CONSISTENT WITH VEGETATION 2. NORMAL LEFT VENTRICULAR CONTRACTILITY 3. NORMAL LEFT VENTRICLE AND LEFT ATRIAL SIZE MTDD
[2018-06-11] MEDS: MIRAPEX PO SCH (21:26)
[2018-06-11] MEDS: CYMBALTA PO SCH (21:26)
[2018-06-11] MEDS: LIPITOR PO SCH (21:27)
[2018-06-11] MEDS: LEVAQUIN 250 MG in PREMIX 50 ML D5W 1 BAG IV SCH (21:27)
[2018-06-11] MEDS: LANTUS SUBCUT SCH (22:19)
[2018-06-12] MEDS: SODIUM CHLORIDE 0.9%-KCL 20 MEQ 1,000 ML IV SCH (01:54)
[2018-06-12] MEDS: ATROVENT 0.02% NEB NEB SCH ×2 (04:50→11:27)
[2018-06-12] MEDS: SYNTHROID PO SCH (05:34)
[2018-06-12] MEDS: LASIX TAB PO SCH (05:34)
[2018-06-12] MEDS: PEPCID PO SCH (05:34)
[2018-06-12] MEDS: LOVENOX SUBCUT SCH (09:35)
[2018-06-12] MEDS: FERROUS SULFATE PO SCH (09:36)
[2018-06-12] MEDS: JANUVIA PO SCH (09:36)
[2018-06-12] MEDS: ZESTRIL PO SCH (09:36)
[2018-06-12] MEDS: COREG PO SCH (09:36)
[2018-06-12] MEDS: KEPPRA PO SCH (09:37)
[2018-06-12] MEDS: OXYCONTIN PO SCH (09:37)
[2018-06-12] MEDS: INVANZ 1 GM in SODIUM CHLORIDE 50 ML IV SCH (09:37)
[2018-06-12] MEDS: RISPERDAL PO SCH (09:48)
[2018-06-12] MEDS: CRANBERRY FRUIT EXTRACT 425 MG PO SCH (09:49)
[2018-06-12] MEDS: DRONABINOL 5 MG PO SCH (09:49)
[2018-06-12] MEDS: VANCOMYCIN 1 GM in SODIUM CHLORIDE 250 ML IV SCH (10:52)
--- NOTE | 2018-06-12 11:52 | RS.PTINEVL ---
Subjective - Patient information Date of Evaluation: 06/12/18 Date of Arrival on Unit: 06/07/18 Admitted From:: Residential ([facility]) Diagnosis: pneumonia, acute kidney injury, ESBL in urine Usual Living Arrangement: Residential Home Environment: Level/No stairs Medical History: Hypertension, Diabetes, Arthritis, Cancer (brain) Medical History Comments:: depression, seizure, hypothroid, pressure ulcers Surgical History: Hysterectomy Surgical History Comments:: craniotomy Medications: see chart Subjective Information/ Patient Comments:: pt lethargic, requires multiple attempts to awaken. pt with some spontaneous speech "I can't do this." pt also with aphasia like symptomes with unintelligble jargon. pt answers "yes" when asked if she has pain however when asked where, she answers "unintelligble speech". - Level of function Prior to this admission, the patient could do the following:: Partially Dependent Ambulation Abilities prior to this admission: pt in fdc, required assist with all ADLs and gait short distances Current Level of Function: Partially Dependent Current Equipment Used at Home: BSC, Wheelchair, Rollator Interventions - Objective Patient Orientation: Person (pt oriented to person only not to place, time, situation) Current Interventions: IV's, Oxygen, Hanks Catheter Range of Motion - ROM Right Upper Extremity AROM: WFL's Left Upper Extremity AROM: WFL's Right Lower Extremity AROM: WFL's Left Lower Extremity AROM: WFL's Muscle Strength - Muscle Strength Right Upper Extremity Strength: Mild Weakness (grossly 3+/5) Left Upper Extremity Strength: Mild Weakness (grossly 3+/5) Right Lower Extremity Strength: Mild Weakness (hip flex 3-/5, knee flex/ext 3+/ 5 ankle DF/PF 3/5 difficult to MMT due to cognition) Left Lower Extremity Strength: Mild Weakness (hip flex 3-/5, knee flex/ext 3+/5 ankle DF/PF 3/5 difficult to MMT due to cognition) Sensation - Sensation Right Upper Extremity Sensation: Intact/Normal Left Upper Extremity Sensation: Intact/Normal Right Lower Extremity Sensation: Intact/Normal Left Lower Extremity Sensation: Intact/Normal Comments: difficult to assess due to cognitive deficit Palpation Palpation Findings: None/Normal Balance - Sitting Balance and Reactions Static Sitting Balance: Poor Dynamic Sitting Balance: Poor Sitting Equilibrium Reactions: Absent Left, Absent Right Sitting Protective Reactions: Absent Left, Absent Right - Standing Balance and Reactions Static Standing Balance: Poor Dynamic Standing Balance: Poor Standing Equilibrium Reactions: Absent Left, Absent Right Standing Protective Reactions: Absent Left, Absent Right - Comments Balance Assessment Comments: pt able to sit at side of bed with CGA unable to maintain balance with any challenges Functional Mobility - Bed Mobility Rolling R/L: Mod Assist, 1 person assist Scooting: Max Assist, 2 person assist Supine to Sit: Max Assist, 2 person assist - Transfers Sit to Stand: Mod Assist, 2 person assist Stand to Sit: Mod Assist, 2 person assist - Safety Awareness Safety Awareness: Poor GEORGINA INDEX SCORE: n/a Ambulation - Ambulation Assistive Device Used: Rolling Walker Orthotic/Prosthetic Device: No Distance: 5 steps Assistance needed with Ambulation: Mod Assist, 2 person assist Gait Deviations: Forward posture, Short stride, Deviates from path Ambulation Comments: pt very fearful of falling stating "I can't do this" Factors Affecting Ambulation: Decreased Balance, Weakness, Decreased Safety, Cognitive Status, Limited Endurance Treatment time - Time with patient Length of Evaluation: 21 Total treatment time: 26 Patient Education - Education Patient Education: Activity Modification Teaching Recipient: Patient, Primary Caregiver Teaching Methods: Discussion Comments: attempted to discuss safety with patient, however due to cognition pt does not appear to understand. Assessment - Assessment Problem List:: Decreased level of function, Requires training/education, Decreased safety/Risk of falls, Weakness, Cognitive status limits abilities Rehab Potential: Poor Further Therapy Indicated?: No Candidate for Swing Bed for Therapy Services?: no due to decline in cognitive and functional status. Comments: Feel pt not appropriate for PT at this time due to progressive decline in cognitive status as well as significantly decreased endurance. Evaluation Complexity: HISTORY: High (brain CA, pneumonia, UTI, cognition, IV antibiotics, ), EXAM OF BODY SYSTEMS: Medium (cognition, balance, transfers, gait, strength), CLINICAL PRESENTATION: High (unstable), CLINICAL DECISION MAKING: Medium Short Term Goals GOAL #1: . GOAL #2: . GOAL #3: . Sueding Machine Operator Goals GOAL #1: . GOAL #2: . Plan Other:: eval only Frequency of Treatment: One time treatment Duration of Treatment: One Time Treatment Anticipated Discharge Destination: Sued[facility] Care Facility Treatment Diagnosis (ICD 10 Codes): R26.81 balance impaired. M62.81 weakness Has the Physician been added for Co-signature?: Yes
[2018-06-12 14:19] VITALS: BP 143/71; TEMP 98.9
--- NOTE | 2018-06-12 19:37 | PCM.DC ---
Final Diagnosis: All Active Problems Pneumonia (Acute) Abdominal pain (Chronic) Brain tumor (Chronic) COPD (chronic obstructive pulmonary disease) (Chronic) Confusion (Chronic) Decubitus ulcer (Chronic) Delirium (Chronic) ESBL (extended spectrum beta-lactamase) producing bacteria infection (Chronic) End stage COPD (Chronic) Hyponatremia (Chronic) Light smoker (Chronic) Type 2 diabetes mellitus with hemoglobin A1c goal of less than 8.5% (Chronic) (1) ESBL (extended spectrum beta-lactamase) producing bacteria infection Status: Chronic Code(s): A49.9 - BACTERIAL INFECTION, UNSPECIFIED; Z16.12 - EXTENDED SPECTRUM BETA LACTAMASE (ESBL) RESISTANCE SNOMED Code(s): 885502321 (2) DARIUS (acute kidney injury) Status: Resolved Code(s): N17.9 - ACUTE KIDNEY FAILURE, UNSPECIFIED SNOMED Code(s): 18899153 (3) Light smoker Status: Chronic (4) Pneumonia Status: Acute Code(s): J18.9 - PNEUMONIA, UNSPECIFIED ORGANISM SNOMED Code(s ): 748849908 Qualifiers: Pneumonia type: due to unspecified organism Laterality: left Lung location: lower lobe of lung Qualified Code(s): J18.1 - Lobar pneumonia, unspecified organism (5) COPD (chronic obstructive pulmonary disease) Status: Chronic Code(s): J44.9 - CHRONIC OBSTRUCTIVE PULMONARY DISEASE, UNSPECIFIED SNOMED Code(s): 44320584 Qualifiers: COPD type: COPD with acute exacerbation Qualified Code(s): J44.1 - Chronic obstructive pulmonary disease with (acute) exacerbation (6) Dehydration Status: Resolved Code(s): E86.0 - DEHYDRATION SNOMED Code(s): 11435576 (7) SIRS (systemic inflammatory response syndrome) Status: Resolved Code(s): R65.10 - SIRS OF NON-INFECTIOUS ORIGIN W/O ACUTE ORGAN DYSFUNCTION SNOMED Code(s): 564727236 (8) Type 2 diabetes mellitus with hemoglobin A1c goal of less than 8.5% Status: Chronic Code(s): E11.9 - TYPE 2 DIABETES MELLITUS WITHOUT COMPLICATIONS SNOMED Code(s): 10753721 (9) Hyponatremia Status: Chronic Code(s): E87.1 - HYPO-OSMOLALITY AND HYPONATREMIA SNOMED Code(s): 81211257 (10) End stage COPD Status: Chronic Code(s): J44.9 - CHRONIC OBSTRUCTIVE PULMONARY DISEASE, UNSPECIFIED SNOMED Code(s): 350014505 (11) Brain tumor Status: Chronic Code(s): D49.6 - NEOPLASM OF UNSPECIFIED BEHAVIOR OF BRAIN SNOMED Code(s): 392191768 (12) Confusion Status: Chronic Code(s): R41.0 - DISORIENTATION, UNSPECIFIED SNOMED Code(s) : 834025311 (13) Abdominal pain Status: Chronic Code(s): R10.9 - UNSPECIFIED ABDOMINAL PAIN SNOMED Code(s): 98770404 (14) Decubitus ulcer Status: Chronic Code(s): L89.90 - PRESSURE ULCER OF UNSPECIFIED SITE, UNSPECIFIED STAGE SNOMED Code(s): 481770498 (15) Delirium Status: Chronic Code(s): R41.0 - DISORIENTATION, UNSPECIFIED SNOMED Code(s) : 1124316 Reason for Hospitalization: 1. Altered mental status 2. SIRS w/ Sepsis Pneumonia + Left Pyelonephritis 3. [place] Resident Prognosis at Discharge: Guarded. Continue IV abx in SWING BED. Continue physical therapy in swing bed. Hospice at discharge. Brain tumor, non operative. Condition at Discharge: Dementia, aggravated, health is stable, IV abx day 12/16. We will continue them through saturday and then d/c them. She was changed from primaxin to Invanz as of yesterday, finish levaquin today. She will continue vanco 1250 BID starting today and continuing 06/13 and 06/14. D/C back to [place] on 06/15. Medications at Discharge: Ambulatory Orders Medication Instructions Recorded Pramipexole Di-HCl [Pramipexole Er] 0.25 mg PO BEDTIME 01/15/17 Levothyroxine Sodium [Synthroid] 200 mcg PO DAILY 04/12/17 Levetiracetam [Keppra] 500 mg PO BID 04/17/17 Acetaminophen [Tylenol] 650 mg PO Q4H PRN 04/27/18 Duloxetine HCl [Cymbalta] 60 mg PO BEDTIME 04/27/18 Ferrous Sulfate [Feosol] 325 mg PO BID 04/27/18 Furosemide [Lasix] 20 mg PO DAILY 04/27/18 Insulin Glargine,Hum.rec.anlog 14 unit SQ BEDTIME 04/27/18 [Basaglar Kwikpen U-100] Insulin Regular, Human [Novolin R] See Protocol IJ DAILY 04/27/18 Ondansetron HCl [Zofran] 4 mg PO Q6HR PRN 04/27/18 Risperidone [Risperdal] 0.5 mg PO DAILY 04/27/18 Sitagliptin Phosphate [Januvia] 50 mg PO DAILY 04/27/18 Famotidine [Pepcid] 20 mg PO QDAC 05/17/18 Carvedilol [Coreg] 3.125 mg PO BIDWM #60 tablet 05/21/18 Ipratropium/Albuterol Neb [Duoneb] 1 vial NEB RTQ8H #90 vial.neb 05/21/18 Cranberry Fruit Extract [Cranberry] 425 mg PO DAILY 06/07/18 Insulin Regular, Human [Novolin R] 1 unit IJ DIRECTED 06/07/18 Oxycodone HCl [Oxycontin] 10 mg PO BID 06/07/18 Invanz 1 gram IV daily. Vancomycin 1250mg IV BID. Haldol 0.5mg BID PRN. Lab/Diagnostics: Laboratory Last Values WBC 4.45 K/ul (4.6-10.2) L 06/11/18 05:00 RBC 2.78 10^6/ul (4.20-5.40) L 06/11/18 05:00 Hgb 8.9 g/dl (12.0-16.0) L 06/11/18 05:00 Hct 26.5 % (37.0-47.0) L 06/11/18 05:00 MCV 95.3 fl (81.0-99.0) 06/11/18 05:00 MCH 32.0 pg (27.0-31.0) H 06/11/18 05:00 MCHC 33.6 (31.8-35.4) 06/11/18 05:00 RDW Coeff of Amanda 13.3 % (11.6-14.8) 06/11/18 05:00 Plt Count 139 10^3/uL (140-440) L 06/11/18 05:00 Immature Gran % (Auto) 1.1 % (0.0-5.0) 06/11/18 05:00 Neut % (Auto) 65.0 06/11/18 05:00 Lymph % (Auto) 20.9 (10.0-50.0) 06/11/18 05:00 Ward % (Auto) 10.6 (0-10) H 06/11/18 05:00 Eos % (Auto) 2.0 % (0.0-7.0) 06/11/18 05:00 Baso % (Auto) 0.4 % (0.0-3.0) 06/11/18 05:00 Immature Gran # (Auto) 0.1 (0.0-1.0) 06/11/18 05:00 Neut # (Auto) 2.9 K/ul (2.0-6.9) 06/11/18 05:00 Lymph # (Auto) 0.9 K/uL (0.60-3.4) 06/11/18 05:00 Ward # (Auto) 0.5 K/uL (0.4-2.0) 06/11/18 05:00 Eos # (Auto) 0.1 K/ul (0.0-0.7) 06/11/18 05:00 Baso # (Auto) 0.0 K/uL (0-0.2) 06/11/18 05:00 Neutrophils % (Manual) 72.0 % (42.2-75.2) 06/09/18 04:30 Band Neutrophils % 2.0 % (0.0-5.0) 06/09/18 04:30 Lymphocytes % (Manual) 18.0 % (10.0-50.0) 06/09/18 04:30 Monocytes % (Manual) 8.0 % (0.0-10.0) 06/09/18 04:30 Eosinophils % (Manual) 1.0 % (0.0-5.0) 06/08/18 05:20 Metamyelocytes % 2.0 % (0.0-2.0) 06/08/18 05:20 Anisocytosis Not present (NOT PRESENT) 06/09/18 04:30 Puncture Site L rad 06/07/18 22:10 O2 Saturation 92.0 % (95-100) L 06/07/18 22:10 ABG pH 7.439 (7.35-7.45) 06/07/18 22:10 ABG pCO2 36.6 mmHg (35-45) 06/07/18 22:10 ABG pO2 61.0 mmHg (85-100) L 06/07/18 22:10 ABG HCO3 24.8 (22.0-26.0) 06/07/18 22:10 ABG Total CO2 26 (22.0-28.0) 06/07/18 22:10 ABG Base Excess 1 (-2.0-2.0) 06/07/18 22:10 Param Test + 06/07/18 22:10 FiO2 % 2.0 % 06/07/18 22:10 Sodium 136.6 mmol/L (137-145) L 06/11/18 05:00 Potassium 3.60 mmol/L (3.5-5.1) 06/11/18 05:00 Chloride 103.8 mmol/L (98-107) 06/11/18 05:00 Carbon Dioxide 29.9 mmol/L (22-30.0) 06/11/18 05:00 Anion Gap 6.50 06/11/18 05:00 BUN 9.4 mg/dL (7-17) 06/11/18 05:00 Creatinine 0.66 mg/dL (0.60-1.30) 06/11/18 05:00 Estimated GFR (MDRD) 89.00 mL/min 06/11/18 05:00 BUN/Creatinine Ratio 14.24 06/11/18 05:00 Glucose 129.8 mg/dL (74-106) H 06/11/18 05:00 Lactic Acid 1.16 mmol/L (0.7-2.1) 06/07/18 22:20 Calcium 8.33 mg/dL (8.4-10.2) L 06/11/18 05:00 Total Bilirubin 0.31 mg/dL (0.2-1.3) 06/11/18 05:00 AST 25.1 U/L (14-36) 06/11/18 05:00 ALT 22.6 U/L (0-35) 06/11/18 05:00 Alkaline Phosphatase 130.5 U/L (53-141) D 06/11/18 05:00 Total Creatine Kinase 32.3 U/L (30-135) 06/07/18 22:20 Troponin I 0.020 ng/ml (0.0000-0.120) 06/07/18 22:20 Total Protein 5.62 g/dL (6.3-8.2) L 06/11/18 05:00 Albumin 2.75 g/dL (3.5-5.0) L 06/11/18 05:00 Globulin 2.87 06/11/18 05:00 Albumin/Globulin Ratio 0.95 06/11/18 05:00 Procalcitonin 0.84 ng/mL (0.09) 06/07/18 22:20 Urine Color Yellow (YELLOW) 06/08/18 03:41 Urine Clarity Turbid (CLEAR) 06/08/18 03:41 Urine pH 6.0 (5-9) 06/08/18 03:41 Ur Specific [place] 1.015 (1.005-1.030) 06/08/18 03:41 Urine Protein 2+ (NEGATIVE) 06/08/18 03:41 Urine Glucose (UA) Negative (NEGATIVE) 06/08/18 03:41 Urine Ketones Negative (NEGATIVE) 06/08/18 03:41 Urine Blood 2+ (NEGATIVE) 06/08/18 03:41 Urine Nitrite Positive (NEGATIVE) 06/08/18 03:41 Urine Bilirubin Negative (NEGATIVE) 06/08/18 03:41 Urine Urobilinogen 0.2 (0.2) 06/08/18 03:41 Ur Leukocyte Esterase 2+ (NEGATIVE) 06/08/18 03:41 Urine Microscopic RBC 5-10 (0-2) 06/08/18 03:41 Urine Microscopic WBC Tntc (0-2) 06/08/18 03:41 Ur Squamous Epith Cells 5-10 (0-5) 06/08/18 03:41 Urine Bacteria 2+ (NOT PRESENT) 06/08/18 03:41 Urine Mucus 1+ (NOT PRESENT) 06/08/18 03:41 Vancomycin Trough 13.222 ug/mL (10.00-20.00) 06/12/18 08:30 Influ A Molecular Assay Negative by naat (NEGATIVE) 06/07/18 22:04 Influ B Molecular Assay Negative by naat (NEGATIVE) 06/07/18 22:04 WBC Trends 06/07/18 06/08/18 06/09/18 Range/Units 22:20 05:20 04:30 WBC 7.81 6.41 5.45 (4.6-10.2) K/ul 06/10/18 06/11/18 Range/Units 07:25 05:00 WBC 5.22 4.45 L (4.6-10.2) K/ul H/H Trends 06/07/18 06/08/18 06/09/18 Range/Units 22:20 05:20 04:30 Hgb 9.8 L 9.4 L 8.6 L (12.0-16.0) g/dl Hct 29.4 L 28.4 L 25.7 L (37.0-47.0) % 06/10/18 06/11/18 Range/Units 07:25 05:00 Hgb 10.0 L 8.9 L (12.0-16.0) g/dl Hct 29.7 L 26.5 L (37.0-47.0) % Glucose Trends 06/07/18 06/08/18 06/09/18 Range/Units 22:20 05:20 04:30 Glucose 216.5 H 206.7 H 157.8 H (74-106) mg/dL 06/10/18 06/11/18 Range/Units 07:25 05:00 Glucose 174.8 H 129.8 H (74-106) mg/dL Intake & Output 06/09/18 06/10/18 06/11/18 06/12/18 23:59 23:59 23:59 23:59 Intake Total 5055 3864 2080 2349 Output Total 4275 1850 2150 2650 Balance 780 2013 Weight 199 lb 6 oz BUN/CR Trends 06/07/18 06/08/18 06/09/18 Range/Units 22:20 05:20 04:30 BUN 22.9 H 22.3 H 14.7 (7-17) mg/dL Creatinine 1.37 H 1.21 0.85 (0.60-1.30) mg/dL 06/10/18 06/11/18 Range/Units 07:25 05:00 BUN 11.8 9.4 (7-17) mg/dL Creatinine 0.76 0.66 (0.60-1.30) mg/dL CXR: Bibasilar atelectasis vs pneumonia. Echo from 1010 Borderline LVH, normal valves, normal left ventricular contractility. Echo 06/11/18 no vegetation. Blood cultures + S. Epidermidis MDR Urine Culture: +ESBL. Education Provided to Patient and Family: 1. Hospice to see patient at D/C. 2. Comfort care. 3. We will complete abx today, saturday, saturday and then d/c to [facility] saturday to meet with hospice team. 4. D/W family about Haldol and use for agitation/delirium. Daughter agrees it is best. Mother is somnolent. Breathing okay. labs have trended okay as well. Follow-ups: 1. Transfer to TCU. Disposition: DISCH W/I HOSP TO [facility] Hospital Course: 72 yo WF resident of [facility] with 48 hours febrile URI now not responsive to tylenol. I was called early 06/06/18 around 1 am and informed patient had fever ,mild cough and rhinorrhea, I discused tylenol and to call back if still febrile 30-45 minutes later. No further calls until 06/07/18 8pm with fever 101 -102 not responsive to tylenol. Patient family wanted her sent to [place] [facility] for evaluation. She was admitted earlier this month for COPD exacerbation and was seen by Dr. Rene. 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 S/P failed radiation and chemo. Dr. Moreno. Seizure do, OA, depression, craniotomy 11/2016 , chol 1980s. Light smoker. She was d/c back to [place], CBC and CMP in 1 week post d/c and to continue SSI. She wasd/c with duoneb, macrobid and prednisone. PT/OT eval/treat, smoking cessation encouraged. She was brought in for that admit with SOA. Still smokes long history of COPD. CXR on that eval no acute changes. Mild resp distress initial o2 87%, O2 PRN NH. UA + ESBL. Admitted started on zosyn, IV fluids, NS 75CC/hour, SS coverage. Home meds continued. Duoneb TID. They decreased her levothyroxine to 200mcg at that visit. Hypotensive, BP improved w/ fluids. D/C NH w/ macrobid BID x 7 days. Recommended nebs TID, steroid taper. Cardiomegaly noted, Echo borderline left ventricular hypertrophy, normal valves, normal LV contractility on 05/21/18. Presented to the ER 06/08 with temp at [place] up to 102.1. Seen by DR. Stovall at 21 :41. She had elevated temp, elevated pulse and elevated Resp with altered mental status, meeting SIRS criteria. Cough, SOA, wheezing. Numerous comorbid conditions to include DM2, dyslipidemia, obesity BMI 33, COPD, chronic tobacco, urine ESBL, pressure ulcers, brain cancer. WBC 7.81, Hgb 9.8, 29.4, plt 137. Sodium 134, k+ 4.01, cl 100.7. BUN 22.9, Cr 1.37. Negative procalcitonin. Lactic acid 1.16. CK 32.3, torponin 0.020. ABG supported primary respiratory alkalosis acute w/ secondary metabolic alkalosis too. Flu negative. Urine ordered, Blood cultures taken x 2. She received 1 dose of zosyn in ER. Patient admitted to room 114 at 00:45 am 06/08/18 for Hospital day 1. Admit order for 23:33 but I was not able to get to see patient until after 0000. She has met SIRS criteria, sepsis with concern for urological and or pulmonary. Febrile illness, abx are needed. [place] resident with many issues. Daughter Sarah GOMEZ provided a lot of the history. She was normal self on /sat this past week, isolated after last hospital stay but doing okay. Starting night mild abd pain, mild cough, mild worsening. Saturday am fever and feeling worse. PO intake dropped, cognition declined. Incontinent of urine, had been incontinent of stool, with 3 unformed stools day before admit. Daughter noted that they had to clean her and make bed multiple times. Limited meals on 06/07/18. Known ESBL. Reviewed previous hospital culture and the abx best to cover for pneumonia cefepime/vanco/levaquin will not cover the agent. She got zosyn x 1 in ER. Concern for zosyn and Vanco worsening renal function. Confusion, dementia worsening, now not communicative. She will open eyes, she did stick out tongue (black coating), no reported vomiting. She answered yup and nope but these do not seem to be appropriate, daughter in room agreed. They were doing chemo up until 1 month ago, stopped 04/2018. She has terminal brain tumor , end stage COPD, now ESBL. She had been on bactrim prophy 3x weekly up until recently. Isolation since out of hospital 05/21/18. No known stroke, no known time period for all of this to happen. Health worsening. SIRS/SEPSIS MDR pathogen in urine. She was d/c to SWING bed as of 06/12/18. 06/09/18 BC + x 2 Staph epidermidis MDR. Urine culture ESBL MDR. We adjusted abx to levaquin, primaxin and vanco and she completed this until 06/11/18 when primaxin was changed to invanz, Vanco increased to 1250mg IV BID 06/12/18 and levaquin 250 IV daily with last dose 06/12/18. DARIUS resolved with NS 70-75ml/hour as of 06/09. Monitored sodium , potassium, calcium. She is not eating well, she had issues up until 06/11 w/ constipation but good BM yesterday 06/11/18. Agitation worsening over 06/10-, haldol added for agitation. As of 06/12/18 plan to do 3 days swing here to complete Abx saturday/saturday and then d/c to [place] on saturday06/15/18 D/C in stable condition but plan is to ultimately refer to hospice. Patient has brain tumor that was tx with chemo up until 1 month ago. Now not treating this any longer. Multiple discussions with Dr. Smith. Patient DNR. They want to treat with abx and to keep comfortable. Comfort care only. Patient is stable to transfer to Swing. Plan: 1. D/C To TCU, see again tomorrow. 2. Suspect D/C back to [facility] Saturday and to see hospice Saturday. 3. Finish abx.
[2018-06-12] MEDS ORDERED: VANCOMYCIN 1.25 GM in SODIUM CHLORIDE 250 ML IV SCH (21:00)
== END 2018-06-12 15:08 | disposition swing bed (61) | DRG 555 ==
LOC: ED 21:20 → MEDSURG B 23:29
PROVIDERS: ADMIT Family Medicine; ATTEND Family Medicine
DX: M79.10 Myalgia, unspecified site (principal); J18.1 Lobar pneumonia, unspecified organism; J18.9 Pneumonia, unspecified organism; R65.10 Systemic inflammatory response syndrome (SIRS) of non-infectious origin without acute organ dysfunction; N17.9 Acute kidney failure, unspecified; E87.1 Hypo-osmolality and hyponatremia; E11.9 Type 2 diabetes mellitus without complications; E86.0 Dehydration; R06.02 Shortness of breath; R06.2 Wheezing; R10.9 Unspecified abdominal pain; R41.0 Disorientation, unspecified; L89.90 Pressure ulcer of unspecified site, unspecified stage; D49.6 Neoplasm of unspecified behavior of brain; J44.9 Chronic obstructive pulmonary disease, unspecified
CPT/HCPCS: 36415; 80048; 80053; 80202; 81001; 82550; 82803; 82962; 83605; 84145; 84484; 85007; 85025; 87040; 87070; 87081; 87086; 87186; 87502; 93005; 93010; 94640; 96361; 96365; 97802; 99284; 99285

== ENCOUNTER 2018-06-12 15:18 | Inpatient (IN) | payer OTHER ==
[2018-06-12 15:39] VITALS: BMI 33.2
[2018-06-12] MEDS ORDERED: TYLENOL PO PRN (15:43)
[2018-06-12] MEDS ORDERED: ALBUTEROL 0.083% NEB NEB PRN (15:47)
[2018-06-12] MEDS ORDERED: HALDOL IM PRN (15:48)
[2018-06-12] MEDS ORDERED: ZOFRAN 4 MG/2 ML IVP PRN (15:51)
[2018-06-12] MEDS: COREG PO SCH (16:34)
[2018-06-12] MEDS: ATROVENT 0.02% NEB NEB SCH ×2 (17:20→23:03)
[2018-06-12] MEDS: SODIUM CHLORIDE 0.9%-KCL 20 MEQ 1,000 ML IV SCH (18:02)
[2018-06-12] MEDS: OXYCONTIN PO SCH (20:54)
[2018-06-12] MEDS: FERROUS SULFATE PO SCH (20:54)
[2018-06-12] MEDS: MIRAPEX PO SCH (20:54)
[2018-06-12] MEDS: ZESTRIL PO SCH (20:55)
[2018-06-12] MEDS: CYMBALTA PO SCH (20:55)
[2018-06-12] MEDS ORDERED: NON-FORMULARY MEDICATION (Duloxetine Hcl [Cymbalta] 60 MG) PO SCH (21:00)
[2018-06-12] MEDS ORDERED: [UNRECOGNIZED DRUG - OTHER] SQ SCH (21:00)
[2018-06-12] MEDS ORDERED: NON-FORMULARY MEDICATION (Ferrous Sulfate [Feosol] 325 MG) PO SCH (21:00)
[2018-06-12] MEDS ORDERED: INSULIN GLARGINE HUM REC ANLOG 14 UNIT SQ SCH (21:00)
[2018-06-12] MEDS ORDERED: PRAMIPEXOLE DI HCL 0.25 MG PO SCH (21:00)
[2018-06-12] MEDS ORDERED: LEVAQUIN 250 MG in PREMIX 50 ML D5W 1 BAG IV SCH (21:00)
[2018-06-12] MEDS ORDERED: NON-FORMULARY MEDICATION (Lisinopril [Lisinopril] 20 MG) PO SCH (21:00)
[2018-06-12] MEDS: KEPPRA PO SCH (21:02)
[2018-06-12] MEDS: LIPITOR PO SCH (21:02)
[2018-06-12] MEDS: HUMULIN R SUBCUT PRN (21:02)
[2018-06-12] MEDS: LANTUS SUBCUT SCH (21:04)
[2018-06-12] MEDS: VANCOMYCIN 1.25 GM in SODIUM CHLORIDE 250 ML IV SCH (22:16)
[2018-06-12] MEDS: DRONABINOL 5 MG PO SCH (22:16)
[2018-06-13] MEDS: ATROVENT 0.02% NEB NEB SCH ×4 (04:43→23:08)
[2018-06-13] MEDS: SYNTHROID PO SCH (06:12)
[2018-06-13] MEDS: LASIX TAB PO SCH (06:12)
[2018-06-13] MEDS: PEPCID PO SCH (06:12)
[2018-06-13] MEDS: HUMULIN R SUBCUT PRN (06:39)
[2018-06-13] MEDS ORDERED: NON-FORMULARY MEDICATION (Levothyroxine Sodium [Synthroid] 200 MCG) PO SCH (09:00)
[2018-06-13] MEDS ORDERED: NON-FORMULARY MEDICATION (Atorvastatin Calcium [Atorvastatin Calcium] 40 MG) PO SCH (09:00)
[2018-06-13] MEDS ORDERED: NON-FORMULARY MEDICATION (Risperidone [Risperdal] 0.5 MG) PO SCH (09:00)
[2018-06-13] MEDS: SODIUM CHLORIDE 0.9%-KCL 20 MEQ 1,000 ML IV SCH (10:20)
[2018-06-13] MEDS: INVANZ 1 GM in SODIUM CHLORIDE 50 ML IV SCH (10:29)
[2018-06-13] MEDS: ZESTRIL PO SCH ×2 (10:30→22:48)
[2018-06-13] MEDS: FERROUS SULFATE PO SCH ×2 (10:30→21:20)
[2018-06-13] MEDS: JANUVIA PO SCH (10:30)
[2018-06-13] MEDS: RISPERDAL PO SCH (10:31)
[2018-06-13] MEDS: KEPPRA PO SCH ×2 (10:31→22:47)
[2018-06-13] MEDS: OXYCONTIN PO SCH ×2 (10:31→22:48)
[2018-06-13] MEDS: COREG PO SCH ×2 (10:31→16:30)
[2018-06-13] MEDS: LOVENOX SUBCUT SCH (10:32)
[2018-06-13] MEDS: VANCOMYCIN 1.25 GM in SODIUM CHLORIDE 250 ML IV SCH ×2 (11:09→20:37)
[2018-06-13] MEDS: DRONABINOL 5 MG PO SCH ×2 (11:25→22:46)
[2018-06-13] MEDS: LANTUS SUBCUT SCH (21:13)
[2018-06-13] MEDS: MIRAPEX PO SCH (21:17)
[2018-06-13] MEDS: CYMBALTA PO SCH (21:20)
--- NOTE | 2018-06-13 21:52 | PCM ---
- Chief Complaint Chief Complaint: Pneumonia, Blood Culture + S. Epidermidis, Urine culture + ESBL. Transfer TCU to complete abx, continue q4-6 hour nebs and nursing care prior to return to [facility] for Hospice. Cognitive decline. - History of Present Illness History of Present Illness: Ms. Quick is a 72 yo CF patient known to me through [facility]. I saw her on and her health has steadily declined. She presented to [facility] on with 48 hours febrile URI, concerning pneumonia, concerning ulcers of buttock, ecchymoses along bilateral UE and tear along left ventral forearm. She was not responsive to tylenol, Urine with E. COli with recent admit on 05/17- 05/21 for similar issues, ESBL then. This seems to be chronic. We admitted her started on abx for HAP levaquin, Vancomycin and primaxin. We found that this regimen would also cover her for ESBL, HAP and her culture from blood from ER grew Staph Epi MDR but the above would work as well. She finished 5 days of levaquin IV 500 day 1 250 day 2-5. She continued IV vanco (dosed by renal parameters), continued primaxin (dosed by renal paramters) and primaxin was changed to invanz 1gram IV daily to cover if we needed to continue this. She received abx up until now and we will continue abx until 06/15/18 at discharge. I have talked with family at length, they are aware of decline. She is mostly unaware, confused, no obvious pain. She has been incontinent of urine throughout stay, barger placed. Incontinent of stool. Labs monitored regularly throughout stay. Hgb between 8.9 and 10. This fluctuated throughout course. Confusion present. NO e/o blood loss. Plt stable 120's to 140's. WBC dropped with fluids down to 4.45. I discussed at length with daughter and son in law. Continued checking was causing pain but not providing additional benefit. For the Swing stay, we will not check labs, daughter appreciated the comfort care. WE will finish IV abx, we will give oral meds as listed. SHe has had continued cognitive decline. Known brain tumor, return, craniotomy 2016 with failed chemo /radiation. Daughter notes that she was told mom only had 1-2 years to live and after stopping chemo 04/2018 she has steadily declined. She did well on day 2 of admit, improving markedly from day of admit. She was speaking yes/no only at admit and GCS was markedly diminished. She improved to coherent and awake alert for 1-2 days and then slid back down. She has progressively declined since that point. She had an initial constipation, but she did have a BM in hospital. No diarrhea in hospital, no abd pain in hospital, minimal PO intake for food in hospital. IV abx, IV fluids continued throughout the stay. She was d/c and readdmitted to [facility] on 06/13/18. 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 S/P failed radiation and chemo. Dr. Moreno. Seizure do, OA, depression, craniotomy 11/2016, chol 1980s. Light smoker. She was d/c back to [place] 05/21, CBC and CMP in 1 week post d/c and to continue SSI. She was d/c with duoneb, macrobid and prednisone. PT/OT eval/ treat, smoking cessation encouraged. RePresented to the ER 06/08 with temp at AL up to 102.1. Seen by DR. Stovall at 21:41. She had elevated temp, elevated pulse and elevated Resp with altered mental status, meeting SIRS criteria. Cough, SOA, wheezing. Numerous comorbid conditions as noted above. WBC 7.81, Hgb 9.8, 29.4, plt 137. Sodium 134, k+ 4.01, cl 100.7. BUN 22.9, Cr 1.37. Negative procalcitonin. Lactic acid 1.16. CK 32.3, torponin 0.020. ABG supported primary respiratory alkalosis acute w/ secondary metabolic alkalosis too. Flu negative. Urine ordered, Blood cultures taken x 2. She received 1 dose of zosyn in ER. Patient admitted to room 114 at 00:45 am 06/08/18 for Hospital day 1. Admit order for 23:33 but I was not able to get to see patient until after 0000. She met SIRS criteria, sepsis with concern for urological and pulmonary. Febrile illness, abx discussed and felt to be needed. [place] resident with many issues. Daughter Sarah GOMEZ provided a lot of the history as patient not able to converse. She was normal self on /sat prior to admit, had been in isolation after last hospital stay but doing okay. Starting night mild abd pain, mild cough, mild worsening. Saturday am fever and feeling worse. PO intake dropped, cognition declined drastically. Incontinent of urine, had been incontinent of stool, with 3 unformed stools day before admit. Daughter noted that they had to clean her and make bed multiple times. Known ESBL. Reviewed previous hospital culture and the abx best to cover for pneumonia cefepime/vanco/levaquin will not cover the agent. She got zosyn x 1 in ER. Concern for zosyn and Vanco worsening renal function. Confusion, dementia worsening, essentially not communicative in hospital, answering yup and nope inappropriately to questions. She has terminal brain tumor, end stage COPD, chronic ESBL, concern for pneumonia. She had been on bactrim prophy 3x weekly up until recently. WE talked about Cdiff precuation in hospital but no stools for 3 days, thus removed. Health worsening. SIRS/SEPSIS MDR pathogen in urine. She was d/c to SWING bed as of 06/12/18-06/13/18. 06/09/18 BC + x 2 Staph epidermidis MDR. Urine culture ESBL MDR. We adjusted abx to levaquin, primaxin and vanco and she completed this until 06/11/18 when primaxin was changed to invanz 1 gram IV, Vanco increased to 1250mg IV BID 06/12/18 per trough and levaquin 250 IV daily with last dose 06/12/18. DARIUS resolved with NS 70-75ml/hour as of 06/09. Monitored sodium, potassium, calcium. She has not been eating well, she had issues up until 06/11 w/ constipation but good , non diarrheal. Agitation worsening over 06/10-06/11/18, haldol added for agitation. Not aggressive, just confused and resistant. As of 06/12/18 plan to do 3 days swing here to complete Abx saturday/saturday and then d/c to AL on ruben 11/4/18 D/C. She is declining steadily. Plan is to refer to hospice. Daughter is fully aware, has gone through this with her grandmother and is really tired of seeing mother suffer. She was told 1-2 years 2017 and we are approaching that time frame. Cognitive decline over last 6 months rapidly progressing since 04/2018 when chemo stopped. Multiple discussions with Daughter Sarah. Patient DNR. They want to treat with abx and to keep comfortable. The want comfort care only, aware that we are not actively looking into anything while she is on swing bed. She will get neb treatments q4 -6 PRN. Finish abx 7 day course with invanz and vancomycin. Daughter agrees with this plan and is saddened about mother health but happy with the course presented. Patient unable to provide history. >45 minutes spent with family today, discussing options, reviewing care, within patient room. Patient cannot provide history. She is not conversant other than few single word options. - Review of Systems Constitutional: fever, weakness, fatigue, loss of appetite. No: chills, sweats , other Eyes: other (unknown patient unable to answer. ) Ears: other (unknown patient unable to answer. ) Nose: other (unknown patient unable to answer. ) Throat: other (unknown patient unable to answer. ) Mouth: other (unknown patient unable to answer. ) Respiratory: shortness of air, wheeze, other (unknown patient unable to answer. ) Cardiovascular: other (unknown patient unable to answer. ) Gastrointestinal: constipation (Seemed to resolve with BM 06/11/18. ), other ( unknown patient unable to answer. + BARGER). No: diarrhea (None now. ) Genitourinary: other (unknown patient unable to answer. ) Neurological: other (unknown patient unable to answer. ) Musculoskeletal: other (unknown patient unable to answer. ) Skin: wounds (decubitus ulcer left buttock. Wound left forearm. Rash under breast, along abdomen and in groin. ), bruising Immunology: other (unknown patient unable to answer. ) Hematology: easy bruising, easy bleeding, other Endocrine: other (unknown patient unable to answer. ) Psychiatric: other (unknown patient unable to answer. ) Habits: tobacco use (chronically, none while in hospital. ) - Past Medical History Past Medical History: COPD, penitentiary tobacco, ESBL urine, CAD, HTN, dyslipidemia, DM 2 a1c goal <8.5, Chronic respiratory failure, anaplastic astrocytoma, left frotnal lobe s/p craniotomy w/ tumor excision 2016. S/P failed radiation and chemo (Dr. Whitley hematoligst/Dr. Moreno neur). Sieizures , OA, depression, light tobacco user. Hypothyroid (overtreated dose decreased 05/21 to 200mcg daily). RLS, Chronic O2 use. - Past Surgical History Past Surgical History: Jacy, Hysterectomy, Craniotomy (2017). - Allergies Allergies/Adverse Reactions: Allergies Allergy/AdvReac Type Severity Reaction Status Date / Time No Known Allergies Allergy Verified 04/12/17 14:17 - Medications Medications: Medications Generic Name Dose Route Start Last Admin Trade Name Freq PRN Reason Stop Dose Admin Acetaminophen 650 mg 06/12/18 15:43 Tylenol PO Q4H PRN Fever > 102 Albuterol Sulfate 1 vial 06/12/18 15:47 06/12/18 16:50 Albuterol 0.083% Neb NEB 1 vial RTQ4H PRN Administration Wheezing Atorvastatin Calcium 40 mg 06/12/18 21:00 06/12/18 21:02 Lipitor PO 40 mg BEDTIME ALEKS Administration Carvedilol 3.125 mg 06/12/18 17:30 06/13/18 16:30 Coreg PO 3.125 mg BIDWM ALEKS Administration Duloxetine HCl 60 mg 06/12/18 21:00 06/13/18 21:20 Cymbalta PO Not Given BEDTIME ALEKS Enoxaparin Sodium 30 mg 06/13/18 09:00 06/13/18 10:32 Lovenox SUBCUT 30 mg DAILY ALEKS Administration Famotidine 20 mg 06/13/18 06:30 06/13/18 06:12 Pepcid PO 20 mg QDAC ALEKS Administration Ferrous Sulfate 324 mg 06/12/18 21:00 06/13/18 21:20 Ferrous Sulfate PO Not Given BID ALEKS Furosemide 20 mg 06/13/18 06:30 06/13/18 06:12 Lasix Tab PO 20 mg QDAC ALEKS Administration Haloperidol Lactate 0.5 mg 06/12/18 15:48 Haldol IM BID PRN Anxiety Ertapenem 1 gm/ Sodium 50 mls @ 75 mls/hr 06/13/18 09:00 06/13/18 10:29 Chloride IV 75 mls/hr DAILY ALEKS Administration Potassium Chloride/Sodium Chloride 1,000 mls @ 75 mls/hr 06/12/18 16:00 06/13 10:20 Sodium Chloride 0.9%-Kcl 20 Meq IV 75 mls/hr .[id number] ALEKS Administration Vancomycin HCl 1.25 gm/ Sodium 250 mls @ 125 mls/hr 06/12/18 21:00 06/13/18 20:37 Chloride IV 125 mls/hr Q12HR ALEKS Administration Insulin Glargine 14 unit 06/12/18 21:00 06/13/18 21:13 Lantus SUBCUT 14 unit BEDTIME ALEKS Administration Insulin Human Regular 3 - 20 unit 06/12/18 15:45 06/13/18 06:39 Humulin R SUBCUT 3 unit PRN PRN Administration HYPERGLYCEMIA Protocol Ipratropium [place] 1 vial 06/12/18 18:00 06/13/18 17:18 Atrovent 0.02% Neb NEB 1 vial RTQ6H ALEKS Administration Levetiracetam 500 mg 06/12/18 21:00 06/13/18 10:31 Keppra PO 500 mg BID ALEKS Administration Levothyroxine Sodium 200 mcg 06/13/18 06:30 06/13/18 06:12 Synthroid PO 200 mcg QDAC ALEKS Administration Lisinopril 20 mg 06/12/18 21:00 06/13/18 10:30 Zestril PO 20 mg BID ALEKS Administration Non-Formulary Medication 5 mg 06/12/18 21:00 06/13/18 11:25 Dronabinol [Dronabinol] PO Not Given BID ALEKS Nystatin 5 ml 06/13/18 21:00 Nystatin Oral Susp PO ACHS ALEKS Ondansetron HCl 4 mg 06/12/18 15:51 Zofran 4 Mg/2 Ml IVP Q6H PRN Nausea / Vomiting Oxycodone HCl 10 mg 06/12/18 21:00 06/13/18 10:31 Oxycontin PO 10 mg BID ALEKS Administration Pramipexole Dihydrochloride 0.25 mg 06/12/18 21:00 06/13/18 21:17 Mirapex PO Not Given BEDTIME ALEKS Risperidone 0.5 mg 06/13/18 09:00 06/13/18 10:31 Risperdal PO 0.5 mg DAILY ALEKS Administration Sitagliptin Phosphate 50 mg 06/13/18 09:00 06/13/18 10:30 Januvia PO 50 mg DAILY ALEKS Administration Sodium Chloride 1 syr 06/12/18 15:53 Saline Flush IVF PRN PRN FLUSHING - Family History Past Family History: Diabetes/Heart Disease runs in family. - Social History Past Social History: Chronic tobacco, no ETOH, no drugs. - Vital Signs Temperature: 98.7 F Pulse Rate: 88 Respiratory Rate: 22 Blood Pressure: 113/69 O2 Sat by Pulse Oximetry: 94 - Body Composition Height: 5 ft 5 in Weight: 199 lb 9.6 oz Body Mass Index (BMI): 33.2 - Physical Examination HEENT: Constitutional: Appearance-Ill appearing, numerous ecchymoses upper extremities , e/o skin breakdown. Reactive to tape, easily torn skin, thin. She is resting in supine position sore on left wrist eval by nursing and wrapped by nursing. She is not in any acute resp or physical distress, appears Older than stated age. Orientation- Not oriented to person/place/time. Not conversant, will open eyes when addressed Build and Nutrition-[Obese female] General- Patient is avoidant of pain stimuli, will open eyes to command, did stick out tongue. Somnolent. Integumentary: General-No e/o infectious rash. Numerous small to medium ecchymoses. Palpation- Normal radial pulse, cap refil bilateral UE and LE. Toenail onychomycosis. Thin skin. #2 sacral/buttock decub ulcers present from AL. healing, appropriate padding, creams and rolling have been done throughout hospital and appears to be healing. Rectal with skin tags left lateral and right anterior/posterior (NURSING IN ROOM, DAUGHTER IN ROOM) Head/Neck: Head- normocephalic and atraumatic. Neck- without visible/palpable lumps or pulsations. Palpation- No bony tenderness about head/neck along frontal, occipital, temporal, parietal, mastoid, jawline, zygoma, orbit or any other location. NO temporal artery tenderness. No TMJ tenderness. Neck Supple. Eye: Reactive to light, accomodation, equal/round. Opened eyes to command. ENMT: Pinna- normal without tenderness or erythema. External auditory canal Left- normal without erythema or discharge, no excessive cerumen. External auditory canal Right-normal without erythema or discharge, no excessive cerumen. Hearing Assessment-normal to conversational speech. Nose and sinus- No sinus tenderness along frontal/maxillary region. External appearance normal and midline. Nares- bilateral quiet airflow,clear discharge. Nasal mucosa- No bleeding noted and no ulcerations observed. Erythematous Turbinates boggy. Lips- normal color, moist without cracks/lesions Oral Cavity/Palate- hard/soft palate intact without lesions, oral mucosa pink and moist. Tongue normal midline. Black hairy tongue. Dentures uppers. Oropharynx- no pharyngeal erythema, Uvula midline. No post nasal drip. No exudate. Lips remain dry appearing. Salivary glands- Non tender to palpation CHEST/LUNG:Auscultation- Breath coarse and distant throughout all lung menon. NO accessory muscle usage. Normal tracheal sounds, bronchial sounds overlying sternum, Bronchovessicular sounds between scapulae posteriorly, vessicular breath sounds heard throughout periphery coarse and mucoid. Adventitious sounds - wheezes, rales, rhonchi throughout. Coarse sounding aeration. CARDIOVASCULAR: Palpation/Percussion- Normal PMI, no palpable thrill Auscultation- Regular rate and rhythm. No murmur noted but difficult to auscultate over pulmonic sounds. ABDOMEN: Inspection- Auscultation- Bowel sounds normal, no abdominal bruits. Palpation/Percussion- soft, reported tender, but did not awaken with palpation. no rebound tenderness, no rigidity (guarding), no jar tenderness, no masses. Peripheral Vascular: Upper extremity Left- Normal temperature with pink nailbeds and no ulcerations. Upper extremity Right- Normal temperature with pink nailbeds and no ulcerations. Lower extremity- Normal temperature with pink nailbeds and no ulcerations. DP pulses 1+ bilaterally. Pedal hair intact. Normal capillary refill. Edema- No edema. Musculoskeletal: Limited as patient would not comply. She moved extremities to pain and stimulus but would not resist motions. Neurological: General- Moves all 4 extremities symmetrically w/ pain/tickle. Would not cooperate with CN eval. Neuro exam difficult GCS 10. E3V3M4 this has been progressive. Neuropsych: Not Oriented to Person, place or time, Confused, not providing adequate information. Concern infection, worsening dementia, worsening brain tumor. Very limited exam as patient is not conversant and low GCS. Family wants IV abx and then hospice. They were afraid hospice would not allow an attempt to treat to see if the ESBL was causing the issues. At this time she has not responded fully and family agrees to finish plan and readmit to [facility] wi/ hospice. - Lab/Tests/Diagnostic Imaging Lab/Tests/Diagnostic Imaging: Laboratory Last Values WBC 4.45 K/ul (4.6-10.2) L 06/11/18 05:00 RBC 2.78 10^6/ul (4.20-5.40) L 06/11/18 05:00 Hgb 8.9 g/dl (12.0-16.0) L 06/11/18 05:00 Hct 26.5 % (37.0-47.0) L 06/11/18 05:00 MCV 95.3 fl (81.0-99.0) 06/11/18 05:00 MCH 32.0 pg (27.0-31.0) H 06/11/18 05:00 MCHC 33.6 (31.8-35.4) 06/11/18 05:00 RDW Coeff of Amanda 13.3 % (11.6-14.8) 06/11/18 05:00 Plt Count 139 10^3/uL (140-440) L 06/11/18 05:00 Immature Gran % (Auto) 1.1 % (0.0-5.0) 06/11/18 05:00 Neut % (Auto) 65.0 06/11/18 05:00 Lymph % (Auto) 20.9 (10.0-50.0) 06/11/18 05:00 Maries % (Auto) 10.6 (0-10) H 06/11/18 05:00 Eos % (Auto) 2.0 % (0.0-7.0) 06/11/18 05:00 Baso % (Auto) 0.4 % (0.0-3.0) 06/11/18 05:00 Immature Gran # (Auto) 0.1 (0.0-1.0) 06/11/18 05:00 Neut # (Auto) 2.9 K/ul (2.0-6.9) 06/11/18 05:00 Lymph # (Auto) 0.9 K/uL (0.60-3.4) 06/11/18 05:00 Maries # (Auto) 0.5 K/uL (0.4-2.0) 06/11/18 05:00 Eos # (Auto) 0.1 K/ul (0.0-0.7) 06/11/18 05:00 Baso # (Auto) 0.0 K/uL (0-0.2) 06/11/18 05:00 Neutrophils % (Manual) 72.0 % (42.2-75.2) 06/09/18 04:30 Band Neutrophils % 2.0 % (0.0-5.0) 06/09/18 04:30 Lymphocytes % (Manual) 18.0 % (10.0-50.0) 06/09/18 04:30 Monocytes % (Manual) 8.0 % (0.0-10.0) 06/09/18 04:30 Eosinophils % (Manual) 1.0 % (0.0-5.0) 06/08/18 05:20 Metamyelocytes % 2.0 % (0.0-2.0) 06/08/18 05:20 Anisocytosis Not present (NOT PRESENT) 06/09/18 04:30 Puncture Site L rad 06/07/18 22:10 O2 Saturation 92.0 % (95-100) L 06/07/18 22:10 ABG pH 7.439 (7.35-7.45) 06/07/18 22:10 ABG pCO2 36.6 mmHg (35-45) 06/07/18 22:10 ABG pO2 61.0 mmHg (85-100) L 06/07/18 22:10 ABG HCO3 24.8 (22.0-26.0) 06/07/18 22:10 ABG Total CO2 26 (22.0-28.0) 06/07/18 22:10 ABG Base Excess 1 (-2.0-2.0) 06/07/18 22:10 Param Test + 06/07/18 22:10 FiO2 % 2.0 % 06/07/18 22:10 Sodium 136.6 mmol/L (137-145) L 06/11/18 05:00 Potassium 3.60 mmol/L (3.5-5.1) 06/11/18 05:00 Chloride 103.8 mmol/L (98-107) 06/11/18 05:00 Carbon Dioxide 29.9 mmol/L (22-30.0) 06/11/18 05:00 Anion Gap 6.50 06/11/18 05:00 BUN 9.4 mg/dL (7-17) 06/11/18 05:00 Creatinine 0.66 mg/dL (0.60-1.30) 06/11/18 05:00 Estimated GFR (MDRD) 89.00 mL/min 06/11/18 05:00 BUN/Creatinine Ratio 14.24 06/11/18 05:00 Glucose 129.8 mg/dL (74-106) H 06/11/18 05:00 Lactic Acid 1.16 mmol/L (0.7-2.1) 06/07/18 22:20 Calcium 8.33 mg/dL (8.4-10.2) L 06/11/18 05:00 Total Bilirubin 0.31 mg/dL (0.2-1.3) 06/11/18 05:00 AST 25.1 U/L (14-36) 06/11/18 05:00 ALT 22.6 U/L (0-35) 06/11/18 05:00 Alkaline Phosphatase 130.5 U/L (53-141) D 06/11/18 05:00 Total Creatine Kinase 32.3 U/L (30-135) 06/07/18 22:20 Troponin I 0.020 ng/ml (0.0000-0.120) 06/07/18 22:20 Total Protein 5.62 g/dL (6.3-8.2) L 06/11/18 05:00 Albumin 2.75 g/dL (3.5-5.0) L 06/11/18 05:00 Globulin 2.87 06/11/18 05:00 Albumin/Globulin Ratio 0.95 06/11/18 05:00 Procalcitonin 0.84 ng/mL (0.09) 06/07/18 22:20 Urine Color Yellow (YELLOW) 06/08/18 03:41 Urine Clarity Turbid (CLEAR) 06/08/18 03:41 Urine pH 6.0 (5-9) 06/08/18 03:41 Ur Specific Pearson 1.015 (1.005-1.030) 06/08/18 03:41 Urine Protein 2+ (NEGATIVE) 06/08/18 03:41 Urine Glucose (UA) Negative (NEGATIVE) 06/08/18 03:41 Urine Ketones Negative (NEGATIVE) 06/08/18 03:41 Urine Blood 2+ (NEGATIVE) 06/08/18 03:41 Urine Nitrite Positive (NEGATIVE) 06/08/18 03:41 Urine Bilirubin Negative (NEGATIVE) 06/08/18 03:41 Urine Urobilinogen 0.2 (0.2) 06/08/18 03:41 Ur Leukocyte Esterase 2+ (NEGATIVE) 06/08/18 03:41 Urine Microscopic RBC 5-10 (0-2) 06/08/18 03:41 Urine Microscopic WBC Tntc (0-2) 06/08/18 03:41 Ur Squamous Epith Cells 5-10 (0-5) 06/08/18 03:41 Urine Bacteria 2+ (NOT PRESENT) 06/08/18 03:41 Urine Mucus 1+ (NOT PRESENT) 06/08/18 03:41 Vancomycin Trough 13.222 ug/mL (10.00-20.00) 06/12/18 08:30 Influ A Molecular Assay Negative by naat (NEGATIVE) 06/07/18 22:04 Influ B Molecular Assay Negative by naat (NEGATIVE) 06/07/18 22:04 WBC Trends 06/07/18 06/08/18 06/09/18 Range/Units 22:20 05:20 04:30 WBC 7.81 6.41 5.45 (4.6-10.2) K/ul 06/10/18 06/11/18 Range/Units 07:25 05:00 WBC 5.22 4.45 L (4.6-10.2) K/ul H/H Trends 06/07/18 06/08/18 06/09/18 Range/Units 22:20 05:20 04:30 Hgb 9.8 L 9.4 L 8.6 L (12.0-16.0) g/dl Hct 29.4 L 28.4 L 25.7 L (37.0-47.0) % 06/10/18 06/11/18 Range/Units 07:25 05:00 Hgb 10.0 L 8.9 L (12.0-16.0) g/dl Hct 29.7 L 26.5 L (37.0-47.0) % Glucose Trends 06/07/18 06/08/18 06/09/18 Range/Units 22:20 05:20 04:30 Glucose 216.5 H 206.7 H 157.8 H (74-106) mg/dL 06/10/18 06/11/18 Range/Units 07:25 05:00 Glucose 174.8 H 129.8 H (74-106) mg/dL Intake & Output 06/09/18 06/10/18 06/11/18 06/12/18 23:59 23:59 23:59 23:59 Intake Total 5054 3864 2080 2349 Output Total 4271 1850 2150 2650 Balance 780 2013 Weight 199 lb 6 oz BUN/CR Trends 06/07/18 06/08/18 06/09/18 Range/Units 22:20 05:20 04:30 BUN 22.9 H 22.3 H 14.7 (7-17) mg/dL Creatinine 1.37 H 1.21 0.85 (0.60-1.30) mg/dL 06/10/18 06/11/18 Range/Units 07:25 05:00 BUN 11.8 9.4 (7-17) mg/dL Creatinine 0.76 0.66 (0.60-1.30) mg/dL CXR: Bibasilar atelectasis vs pneumonia. Echo from 1010 Borderline LVH, normal valves, normal left ventricular contractility. Echo 06/11/18 no vegetation. Blood cultures + S. Epidermidis MDR Urine Culture: +ESBL. - Assessment (1) Cognitive decline Status: Acute Code(s): F09 - UNSP MENTAL DISORDER DUE TO KNOWN PHYSIOLOGICAL CONDITION SNOMED Code(s): 727030471 (2) Pneumonia Status: Acute Code(s): J18.9 - PNEUMONIA, UNSPECIFIED ORGANISM SNOMED Code(s ): 157995734 Qualifiers: Pneumonia type: due to unspecified organism Laterality: left Lung location: lower lobe of lung Qualified Code(s): J18.1 - Lobar pneumonia, unspecified organism (3) Brain tumor Status: Chronic Code(s): D49.6 - NEOPLASM OF UNSPECIFIED BEHAVIOR OF BRAIN SNOMED Code(s): 998591631 (4) Decubitus ulcer Status: Chronic Code(s): L89.90 - PRESSURE ULCER OF UNSPECIFIED SITE, UNSPECIFIED STAGE SNOMED Code(s): 649917577 (5) ESBL (extended spectrum beta-lactamase) producing bacteria infection Status: Chronic Code(s): A49.9 - BACTERIAL INFECTION, UNSPECIFIED; Z16.12 - EXTENDED SPECTRUM BETA LACTAMASE (ESBL) RESISTANCE SNOMED Code(s): 270348368 (6) End stage COPD Status: Chronic Code(s): J44.9 - CHRONIC OBSTRUCTIVE PULMONARY DISEASE, UNSPECIFIED SNOMED Code(s): 513968726 (7) Chronic anemia Status: Acute Code(s): D64.9 - ANEMIA, UNSPECIFIED SNOMED Code(s): 471893568 (8) Hyponatremia Status: Chronic Code(s): E87.1 - HYPO-OSMOLALITY AND HYPONATREMIA SNOMED Code(s): 72080055 (9) Type 2 diabetes mellitus with hemoglobin A1c goal of less than 8.5% Status: Chronic Code(s): E11.9 - TYPE 2 DIABETES MELLITUS WITHOUT COMPLICATIONS SNOMED Code(s): 82596344 - Plan Plan: ESBL/Pneumonia: She has completed 5/7 days of abx. Levaquin stopped on day 5. Plan is abx saturday/saturday and d/c to NH on saturday. We did not d/c at end of hospital stay as they did not feel that they could give q 4 hour nebs and IV abx q12 easily. I did change to INVANZ in plan that we could get her as they had said previously if q12 hours it is possible due to pharmacist schedule. However decision was made to place patient into TCU and finish abx here, give neb treatments more freq, long-term, PT had seen patient. - Completed 5/5 days of IV levaquin 500 day 1 250 days 2-5 based on renal dosing. - Primaxin 4/7 days of IV based on renal dosing, changed to invanz to complete final days. - Vancomycin renally dosed. Pharmacy monitoring the trough. - Finish day 02/15 which would cover for HAP, ESBL, S. Epi (LIKELY CONTAMINANT). - Was on tele up until 06/12/18. D/C this when transfer to TCU. Cogntive decline: CT head 06/08/18 no acute change. She has declined steadily over past 2 months. Family wants hospice. She is confused, refusing some care. We had to use haldol a few times. Family does not want more of that. I discussed at length about Haldol prior to ever using it and she approved. Did not like the somnolence. WE reviewed meds. Chronic anemia: Stable mid 8's-10 as per labs. No acute loss identified. Hypocalcemia: Corrects based on low albumin, to normal. DVT Prophy: Lovenox Daily. Diet: As tolerated, she is refusing most of food. At this time ADA diet is preferred but any intake would be appreciated. DM2: Monitor and correct as needed. A1C 8.35 on 05/20/18 and with her health < 8.5 is likely reasonable. Activity: Up with assist, fall precautions. Disposition: We will continue to provide IV abx for 05/13-05/15 and d/c to halfway on 05/15/18. >45 minutes spent rounding today. Concerning that her symptoms represent end of life. Numerous ecchymosis prior to starting lovenox, no obvious worsening on lovenox. However she has had continued decline. No falls, no trauma. She had a few days of improvement and then back to where she was/worse. Continue with plan above.
[2018-06-13] MEDS: LIPITOR PO SCH (22:47)
[2018-06-13] MEDS: NYSTATIN ORAL SUSP PO SCH (22:48)
[2018-06-14] MEDS: SODIUM CHLORIDE 0.9%-KCL 20 MEQ 1,000 ML IV SCH ×2 (03:57→19:04)
[2018-06-14] MEDS: ATROVENT 0.02% NEB NEB SCH ×4 (04:30→23:10)
[2018-06-14] MEDS: HUMULIN R SUBCUT PRN ×2 (06:02→20:50)
[2018-06-14] MEDS: PEPCID PO SCH (06:26)
[2018-06-14] MEDS: NYSTATIN ORAL SUSP PO SCH ×4 (06:26→21:03)
[2018-06-14] MEDS: LASIX TAB PO SCH (06:26)
[2018-06-14] MEDS: SYNTHROID PO SCH (06:27)
[2018-06-14] MEDS: KEPPRA PO SCH ×2 (08:08→20:27)
[2018-06-14] MEDS: OXYCONTIN PO SCH ×2 (08:09→20:26)
[2018-06-14] MEDS: RISPERDAL PO SCH (08:09)
[2018-06-14] MEDS: COREG PO SCH ×2 (08:09→16:32)
[2018-06-14] MEDS: ZESTRIL PO SCH ×2 (08:10→20:26)
[2018-06-14] MEDS: JANUVIA PO SCH (08:10)
[2018-06-14] MEDS: FERROUS SULFATE PO SCH ×2 (08:10→20:25)
[2018-06-14] MEDS: LOVENOX SUBCUT SCH (08:11)
[2018-06-14] MEDS: INVANZ 1 GM in SODIUM CHLORIDE 50 ML IV SCH (08:19)
[2018-06-14] MEDS: DRONABINOL 5 MG PO SCH ×2 (10:08→21:02)
[2018-06-14] MEDS: VANCOMYCIN 1.25 GM in SODIUM CHLORIDE 250 ML IV SCH ×2 (10:28→20:25)
[2018-06-14] MEDS: LIPITOR PO SCH (20:25)
[2018-06-14] MEDS: MIRAPEX PO SCH (20:26)
[2018-06-14] MEDS: LANTUS SUBCUT SCH (20:49)
[2018-06-14] MEDS: CYMBALTA PO SCH (21:02)
[2018-06-15] MEDS: ATROVENT 0.02% NEB NEB SCH (04:53)
[2018-06-15] MEDS: SYNTHROID PO SCH (06:12)
[2018-06-15] MEDS: HUMULIN R SUBCUT PRN (06:12)
[2018-06-15] MEDS: NYSTATIN ORAL SUSP PO SCH (06:12)
[2018-06-15] MEDS: LASIX TAB PO SCH (06:13)
[2018-06-15] MEDS: PEPCID PO SCH (06:13)
[2018-06-15] MEDS: COREG PO SCH (07:40)
[2018-06-15] MEDS: SODIUM CHLORIDE 0.9%-KCL 20 MEQ 1,000 ML IV SCH (09:18)
[2018-06-15 09:20] VITALS: BP 113/69; TEMP 98.7
[2018-06-15] MEDS: DRONABINOL 5 MG PO SCH (09:52)
[2018-06-15] MEDS: FERROUS SULFATE PO SCH (09:53)
[2018-06-15] MEDS: INVANZ 1 GM in SODIUM CHLORIDE 50 ML IV SCH (09:53)
[2018-06-15] MEDS: LOVENOX SUBCUT SCH (09:53)
[2018-06-15] MEDS: KEPPRA PO SCH (09:53)
[2018-06-15] MEDS: JANUVIA PO SCH (09:53)
[2018-06-15] MEDS: OXYCONTIN PO SCH (09:54)
[2018-06-15] MEDS: RISPERDAL PO SCH (09:54)
[2018-06-15] MEDS: ZESTRIL PO SCH (09:54)
--- NOTE | 2018-06-15 10:07 | PCM.DC ---
Final Diagnosis: Pneumonia/ESBL(Acute): day 77 Vanco/primaxin(invanz for day5-7) and levaquin 5/ 5 days. Brain tumor (Chronic) COPD (chronic obstructive pulmonary disease) (Chronic): STABLE. Delirium (Chronic)/Confusion (Chronic) WORSENING Decubitus ulcer (Chronic): Stable Hyponatremia (Chronic) Light smoker (Chronic) Type 2 diabetes mellitus with hemoglobin A1c goal of less than 8.5% (Chronic) Hypocalcemia: Corrects to normal. Melena Ecchymoses Avoiding oral intake. (1) Cognitive decline Status: Acute Code(s): F09 - UNSP MENTAL DISORDER DUE TO KNOWN PHYSIOLOGICAL CONDITION SNOMED Code(s): 984625211 (2) Pneumonia Status: Acute Code(s): J18.9 - PNEUMONIA, UNSPECIFIED ORGANISM SNOMED Code(s ): 002994985 Qualifiers: Pneumonia type: due to unspecified organism Laterality: left Lung location: lower lobe of lung Qualified Code(s): J18.1 - Lobar pneumonia, unspecified organism (3) Brain tumor Status: Chronic Code(s): D49.6 - NEOPLASM OF UNSPECIFIED BEHAVIOR OF BRAIN SNOMED Code(s): 576370791 (4) Decubitus ulcer Status: Chronic Code(s): L89.90 - PRESSURE ULCER OF UNSPECIFIED SITE, UNSPECIFIED STAGE SNOMED Code(s): 130640847 (5) ESBL (extended spectrum beta-lactamase) producing bacteria infection Status: Chronic Code(s): A49.9 - BACTERIAL INFECTION, UNSPECIFIED; Z16.12 - EXTENDED SPECTRUM BETA LACTAMASE (ESBL) RESISTANCE SNOMED Code(s): 228900347 (6) End stage COPD Status: Chronic Code(s): J44.9 - CHRONIC OBSTRUCTIVE PULMONARY DISEASE, UNSPECIFIED SNOMED Code(s): 129423647 (7) Chronic anemia Status: Acute Code(s): D64.9 - ANEMIA, UNSPECIFIED SNOMED Code(s): 971610866 (8) Hyponatremia Status: Chronic Code(s): E87.1 - HYPO-OSMOLALITY AND HYPONATREMIA SNOMED Code(s): 08044617 (9) Type 2 diabetes mellitus with hemoglobin A1c goal of less than 8.5% Status: Chronic Code(s): E11.9 - TYPE 2 DIABETES MELLITUS WITHOUT COMPLICATIONS SNOMED Code(s): 69628300 (10) Melena Status: Acute Code(s): K92.1 - MELENA SNOMED Code(s): 5261544 (11) Not taking medication as directed Status: Acute Code(s): Z91.14 - PATIENT'S OTHER NONCOMPLIANCE WITH MEDICATION REGIMEN SNOMED Code(s): 668911141 Reason for Hospitalization: [facility] admit to complete IV abx and to give nebs more frequently. Prognosis at Discharge: Guarded/Severe. I am worried she is worsening and heading towards end of life. Hospice consulted, plan to d/c to [facility] for Hospice. Condition at Discharge: Worsening. Cognitive decline worsening, concern for rectal bleed, chronic anemia known. Offered readmit to eval for bleeding and to consider repeat labs etc. Daughter and I had long talk today, feels that it is best to not put her through all that. I agreed with her assessment. Daughter voiced her request for mother to be d/c to NH and hospice contacted. Known brain tumor, known progression, worsening over last 60 days. Medications at Discharge: Ambulatory Orders Medication Instructions Recorded Pramipexole Di-HCl [Pramipexole ER] 0.25 mg PO BEDTIME 01/15/17 Levothyroxine Sodium [Synthroid] 200 mcg PO DAILY 04/12/17 Levetiracetam [Keppra] 500 mg PO BID 04/17/17 Acetaminophen [Tylenol] 650 mg PO Q4H PRN 04/27/18 Duloxetine HCl [Cymbalta] 60 mg PO BEDTIME 04/27/18 Ferrous Sulfate [Feosol] 325 mg PO BID 04/27/18 Furosemide [Lasix] 20 mg PO DAILY 04/27/18 Insulin Glargine,Hum.rec.anlog 14 unit SQ BEDTIME 04/27/18 [Basaglar Kwikpen U-100] Ondansetron HCl [Zofran] 4 mg PO Q6HR PRN 04/27/18 Risperidone [Risperdal] 0.5 mg PO DAILY 04/27/18 Sitagliptin Phosphate [Januvia] 50 mg PO DAILY 04/27/18 Famotidine [Pepcid] 20 mg PO QDAC 05/17/18 Carvedilol [Coreg] 3.125 mg PO BIDWM #60 tablet 05/21/18 Insulin Regular, Human [Novolin R] 1 unit IJ DIRECTED 06/07/18 Oxycodone HCl [Oxycontin] 10 mg PO BID 06/07/18 Albuterol Sulfate 0.083% Neb 1 vial NEB RTQ4H PRN 30 Days #100 06/15/18 [Albuterol 0.083% Neb] vial.neb Ipratropium Nazlini 0.02% Neb 1 vial NEB RTQ6H 30 Days #120 06/15/18 [Atrovent 0.02% Neb] vial.neb Nystatin [Nystatin Oral Susp] 5 ml PO ACHS 10 Days #200 cup 06/15/18 Monistat [address] Lab/Diagnostics: Laboratory Last Values Vancomycin Trough 12.771 ug/mL (10.00-20.00) 06/15/18 08:25 Follow-ups: 1, [facility] 2. Hospice. Disposition: F OTHER Hospital Course: Ms. Quick 72 yo CF admitted to [facility] 06/13/18 (please see note for prior admit history) worsening cognition, fever as of 06/14/18, she had dark tarry stools 06/14, lovenox held. She has not had any additional labs. D/W daughter over phone today about options. Option 1 readmit and start full w/u due to fever, new stool changes, chronic/steady cognitive decline w/ CT HEad unchanged 06/08/18, no s/sx of new stroke, no falls and on anticoag that can then lead to bleeding and worsening anemia, known ESBL, ?contaminant vs blood infection with MDR S. Epi, ?Pneumonia and now 7 days of IV abx. She did not like this option as we discussed more blood draws, mother is not consuming food, she is not cooperative , not taking PO meds, declining steadily. I discussed option 2 return to [facility] and then have hospice see her, as per our original discussion. She was thankful for our care and saddened by the decline in mother health. I offered further w/u and to consider transfer to higher level facility but that this would result in more tests, more needles, new environment and this did not sound favorable to daugher. I reviewed the history, I reviewed the notes from yesterday. As per discussion on 06/13/18, I did not see patient on 06/14/18. Blood glucose have been okay on accucheck, meals have been refused, PO meds have been refused. Daughter even notes that this is worsening despite our attempts at helping her mother. She is tired of seeing her suffering and wishes to d/c to [facility] with Hospice. I discussed that it was likely the most loving of the options and I would agree with the assessment. We d/c her IV abx. I will add monistat as on exam today she had a vaginal discharge. She has been loose of stools. WE had talked about Cdiff at original admit to hospital but she had no BM for ~2-3 days and this was d/c. She had foul smelling dark tarry stool yesterday concerning melena. Again, I discussed with daughter via phone this am implications of this finding. She does not want readmit to hospital. Face more flushed this am. Still w/ numerous ecchymoses bilateral UE, now neck. Legs no edema. With Daphney present we rolled her this am, decub ulcer is stable and looks better than at admit. She has no seepage from rectum. Some yellow/white tinged non odorous material from vagina c/w yeast. She refused meds this am, took a few bites of food, concern regarding swallowing. Nurses and I discussed fever last night despite abx, viral process vs end of life physiology. As the body shuts down, interest in food declines. Cogntive awareness usually follows. Discussed her somnolence, sleepiness, her interest in conversation and lack of words. She has talked to people through the call box , she has talked to people not there. I feel she is entering into dying process. I printed handout on what to expect for Daughter Sarah and I discussed to hold mother, talk to her, she can hear and understand. Plan: - D/C To [facility] via ambulance - Talked with Sarah GOMEZ this am from 8:30-8:45. - Talked with ANA [facility] 8:45-8:55 [phone] - Contacted [facility] this am and talked with Alana [phone] - They will admit today, they will talk with DR. segal director. - I will add monistat for vaginal discharge noted today by me on exam. - IV abx have been d/c. - Concern regarding melena, the lovenox was d/c yesterday and daughter given Option 1 admit back to hospital for w/u or still d/c with Hospice services. - Refusing oral meds, hospice assistance would be appreciated. - Cognitive decline, has progressed, refusing oral meds, refusing meals. - Hanks to remain in place. Discussion with daughter this am about readmit vs hospice. She chose hospice. We talked about the bleeding and concern for blood in stool, which could worsen the anemia and lead to worsening cognition and decline. She is aware. This am , daughter/POA has had a bad day. She wants to have mother back at [facility]. I discussed with her that I cared for her mother, I also wanted her to be comfortable. Plan to d/c to [facility] with Hospice. Lengthy discussion in patient/ family room with daughter/son in law about end of life physiology. Answered her questions. She has new job starting tomorrow. Happy to provide letter to employer if needed. >30 minutes spent w/ family this am, not including documentation.
== END 2018-06-15 11:20 | disposition short-term general hospital (02) | DRG 194 ==
LOC: MEDSURG B 15:18
PROVIDERS: ADMIT Family Medicine; ATTEND Family Medicine
DX: J18.9 Pneumonia, unspecified organism (principal); E87.1 Hypo-osmolality and hyponatremia; K92.1 Melena; J18.1 Lobar pneumonia, unspecified organism; D49.6 Neoplasm of unspecified behavior of brain; L89.90 Pressure ulcer of unspecified site, unspecified stage; A49.9 Bacterial infection, unspecified; J44.9 Chronic obstructive pulmonary disease, unspecified; D64.9 Anemia, unspecified; E11.9 Type 2 diabetes mellitus without complications; Z91.14 Patient's other noncompliance with medication regimen
CPT/HCPCS: 36415; 80202; 82962; 94640

== ENCOUNTER 2018-06-15 11:09 | Outpatient (CLI) | END 2018-06-15 11:16 | LOC: AMBL 11:09 | PROVIDERS: ATTEND Emergency Medicine | DX: C80.1 Malignant (primary) neoplasm, unspecified (principal); Z99.81 Dependence on supplemental oxygen; R40.2421 Glasgow coma scale score 9-12, in the field [EMT or ambulance] ==